=== PATIENT | male | born 1935 | race Caucasian/White ===

== ENCOUNTER 2018-03-20 18:48 | Emergency (ER) | payer OTHER ==
[2018-03-20] MEDS ORDERED: TETRACAINE HCL 0.5% 2ML OPTH ONE (19:37)
[2018-03-20] MEDS ORDERED: FLUORESCEIN SODIUM 0.6 MG/WRAP ONE (19:37)
--- NOTE | 2018-03-20 20:02 | ER ---
Nurse's Notes [facility] Name: Nikolai Gray Age: 82 yrs Sex: Male : 1935 Arrival Date: 03/20/2018 Time: 18:50 Bed 7 Private MD: Lázaro Minaya Diagnosis: Injury of conjunctiva and corneal abrasion without foreign body, right eye Presentation: 03/20 19:34 Presenting complaint: Patient states: "I think I have sawdust in my right eye.". tl2 Transition of care: patient was not received from another setting of care. Onset of symptoms was March 20, 2018. Risk Assessment: Do you want to hurt yourself or someone else? Patient reports no desire to harm self or others. Initial Sepsis Screen: Does the patient meet any 2 criteria? No. Patient's initial sepsis screen is negative. Does the patient have a suspected source of infection? No. Patient's initial sepsis screen is negative. Care prior to arrival: None. 19:34 Method Of Arrival: Ambulatory tl2 19:34 Acuity: ISAC 4 tl2 Triage Assessment: 19:36 General: Appears in no apparent distress. uncomfortable, Behavior is calm, cooperative, tl2 appropriate for age. Pain: Complains of pain in right eye. EENT: Eyes are tearing on outer aspect of conjuctiva of right eye, iris of right eye and inner aspect of conjuctiva of right eye Sclera/Cornea are reddened in outer aspect of conjuctiva of right eye, iris of right eye and inner aspect of conjuctiva of right eye. Neuro: Level of Consciousness is awake, alert, obeys commands, Oriented to person, place, time, situation. Respiratory: Airway is patent Respiratory effort is even, unlabored, Respiratory pattern is regular, symmetrical. Derm: Skin is pink, warm \\T\\ dry. Historical: - Allergies: 19:36 No Known Allergies; tl2 - Home Meds: 19:36 unknown meds [Active]; tl2 - PMHx: 19:36 Hypertension; tl2 - Immunization history:: Adult Immunizations up to date. - Social history:: Smoking status: Patient/guardian denies using tobacco. - Ebola Screening: : No symptoms or risks identified at this time. Screenin:38 Abuse screen: Denies threats or abuse. Nutritional screening: No deficits noted. tl2 Tuberculosis screening: No symptoms or risk factors identified. Fall Risk None identified. Assessment: 19:36 General: see triage assessment. tl2 Vital Signs: 19:36 BP 145 / 73; Pulse 71; Resp 20; Temp 98.5(O); Pulse Ox 97% on R/A; Weight 90.72 kg; tl2 Height 6 ft. 1 in. (185.42 cm); Pain 1/10; 20:11 BP 124 / 56; Pulse 64; Resp 18; Pulse Ox 96% on R/A; tl2 19:36 Body Mass Index 26.39 (90.72 kg, 185.42 cm) tl2 Visual Acuity: 20:12 Left Eye Visual acuity 20/40, Pupil size 3 mm, ; Right Eye Visual acuity 20/30, Pupil tl2 size 3 mm, ; Both Eyes Visual acuity 20/20; Without Lenses; ED Course: 18:50 Patient arrived in ED. sb2 18:50 Lázaro Minaya MD is Private Physician. sb2 19:27 Aníbal De La Garza MD is Attending Physician. ps1 19:35 Triage completed. tl2 19:36 Arm band placed on right wrist. tl2 19:38 Patient has correct armband on for positive identification. Bed in low position. Call tl2 light in reach. Side rails up X 1. 20:00 Ander Mckinley MD is Referral Physician. ps1 20:32 Assist provider with eye exam of right eye. using fluorescein stain, Performed by tl1 Aníbal De La Garza MD Patient tolerated well. Patient did not have IV access during this emergency room visit. Administered Medications: 19:36 CANCELLED (Duplicate Order): Tetracaine Drops 0.5 % 2 drops Ophthalmic once; left eye tl1 19:37 Drug: Tetracaine Drops 0.5 % 2 drops Route: Ophthalmic; Site: right eye; tl1 19:50 Drug: Fluorescein Strip 1 strip Route: Ophthalmic; Site: right eye; tl2 20:12 Drug: Tobramycin Ointment (0.3 %) 1 application Route: Ophthalmic; Site: right eye; tl2 Outcome: 20:01 Discharge ordered by . ps1 20:32 Discharged to home ambulatory. tl1 20:32 Condition: good 20:32 Discharge instructions given to patient, Instructed on discharge instructions, follow up and referral plans. medication usage, Demonstrated understanding of instructions, follow-up care, medications. 20:33 Patient left the ED. tl1 Signatures: Coretta Ramirez RN RN tl1 Meli Payne RN RN tl2 Aníbal De La Garza MD MD ps1 [place] sb2
--- NOTE | 2018-03-20 20:02 | EDPHYS ---
Physician Documentation [facility] Name: Nikolai Gray Age: 82 yrs Sex: Male : 1935 Arrival Date: 03/20/2018 Time: 18:50 Bed 7 Private MD: Lázaro Minaya ED Physician Aníbal De La Garza HPI: 03/20 19:54 This 82 yrs old Male presents to ER via Ambulatory with complaints of Eye ps1 Problem. 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 He felt sawdust ps1 go into his eye and flushed it. He has persistent FBS in right eye with associated conjunctival injection. Onset was today. Pain mild and described as discomfort. No remitting factors. . Historical: - Allergies: 19:36 No Known Allergies; tl2 - Home Meds: 19:36 unknown meds [Active]; tl2 - PMHx: 19:36 Hypertension; tl2 - Immunization history:: Adult Immunizations up to date. - Social history:: Smoking status: Patient/guardian denies using tobacco. - Ebola Screening: : No symptoms or risks identified at this time. ROS: 19:54 Constitutional: Negative for fever, chills, and weight loss, ENT: Negative for injury, ps1 pain, and discharge, Neck: Negative for injury, pain, and swelling, Cardiovascular: Negative for chest pain, palpitations, and edema, Respiratory: Negative for shortness of breath, cough, wheezing, and pleuritic chest pain, Abdomen/GI: Negative for abdominal pain, nausea, vomiting, diarrhea, and constipation. 19:54 Eyes: Positive for foreign body sensation. Exam: 19:54 Constitutional: This is a well developed, well nourished patient who is awake, alert, ps1 and in no acute distress. Head/Face: Normocephalic, atraumatic. Chest/axilla: Normal chest wall appearance and motion. Nontender with no deformity. No lesions are appreciated. Cardiovascular: Regular rate and rhythm. No gallops, murmurs, or rubs. Normal PMI, no JVD. No pulse deficits. Respiratory: Lungs have equal breath sounds bilaterally, clear to auscultation and percussion. No rales, rhonchi or wheezes noted. No increased work of breathing, no retractions or nasal flaring. Abdomen/GI: Soft, non-tender, with normal bowel sounds. No distension or tympany. No guarding or rebound. No evidence of tenderness throughout. Skin: Warm, dry with normal turgor. Normal color with no rashes, no lesions, and no evidence of cellulitis. MS/ Extremity: Pulses equal, no cyanosis. Neurovascular intact. Full, normal range of motion. 19:54 Eyes: Periorbital structures: appear normal, Pupils: equal, round, and reactive to light and accomodation, Conjunctiva: injected, in the right eye, Corneas: abrasion, that is small, on the right, at 7 o'clock, foreign body, is not appreciated. Vital Signs: 19:36 BP 145 / 73; Pulse 71; Resp 20; Temp 98.5(O); Pulse Ox 97% on R/A; Weight 90.72 kg; tl2 Height 6 ft. 1 in. (185.42 cm); Pain 1/10; 20:11 BP 124 / 56; Pulse 64; Resp 18; Pulse Ox 96% on R/A; tl2 19:36 Body Mass Index 26.39 (90.72 kg, 185.42 cm) tl2 Visual Acuity: 20:12 Left Eye Visual acuity 20/40, Pupil size 3 mm, ; Right Eye Visual acuity 20/30, Pupil tl2 size 3 mm, ; Both Eyes Visual acuity 20/20; Without Lenses; MDM: 19:54 Data reviewed: vital signs, nurses notes, and as a result, I will discharge patient. ps1 Counseling: I had a detailed discussion with the patient and/or guardian regarding: the historical points, exam findings, and any diagnostic results supporting the discharge/admit diagnosis, the need for outpatient follow up, an opthalmologist. 20:01 Patient medically screened. ps1 Administered Medications: 19:36 CANCELLED (Duplicate Order): Tetracaine Drops 0.5 % 2 drops Ophthalmic once; left eye tl1 19:37 Drug: Tetracaine Drops 0.5 % 2 drops Route: Ophthalmic; Site: right eye; tl1 19:50 Drug: Fluorescein Strip 1 strip Route: Ophthalmic; Site: right eye; tl2 20:12 Drug: Tobramycin Ointment (0.3 %) 1 application Route: Ophthalmic; Site: right eye; tl2 Disposition: 03/20/18 20:01 Discharged to Home. Impression: Injury of conjunctiva and corneal abrasion without foreign body, right eye. - Condition is Stable. - Discharge Instructions: Corneal Abrasion, [id number]. - Prescriptions for Erythromycin 5 mg/gram (0.5 %) Ophthalmic Ointment - apply 1 ribbon by OPHTHALMIC route every 8 hours; 1 tube. - Medication Reconciliation Form, Thank You Letter, Antibiotic Education, Prescription Opioid Use form. - Follow up: Ander Mckinley MD; When: 1 week; Reason: Recheck today's complaints, Continuance of care, Re-evaluation by your physician. Follow up: Emergency Department; When: As needed; Reason: Worsening of condition. - Problem is new. - Symptoms have improved. Signatures: Monika Benitez RN RN fc Coretta Ramirez RN RN tl1 Meli Payne RN RN tl2 Aníbal De La Garza MD MD ps1 Corrections: (The following items were deleted from the chart) 19:36 19:35 Tetracaine Drops 0.5 % 2 drops Ophthalmic once; left eye ordered. tl1 tl1 20:33 20:01 03/20/2018 20:01 Discharged to Home. Impression: Injury of conjunctiva and tl1 corneal abrasion without foreign body, right eye. Condition is Stable. Forms are Medication Reconciliation Form, Thank You Letter, Antibiotic Education, Prescription Opioid Use. Follow up: Ander Mckinley; When: 1 week; Reason: Recheck today's complaints, Continuance of care, Re-evaluation by your physician. Follow up: Emergency Department; When: As needed; Reason: Worsening of condition. Problem is new. Symptoms have improved. ps1
[2018-03-20] MEDS ORDERED: GENTAMICIN 0.3% OPTH DROP 5ML ONE (20:14)
[2018-03-20] MEDS ORDERED: TOBRAMYCIN SULF 0.3% OPTH OINT ONE (20:16)
[2018-03-20 20:41] VITALS: TEMP 98.5
[2018-03-20 20:42] VITALS: BP 124/56; O2SAT 96
== END 2018-03-20 20:33 | disposition home or self-care (01) ==
LOC: ER 18:48
DX: S05.01XA Injury of conjunctiva and corneal abrasion without foreign body, right eye, initial encounter (principal)
CPT/HCPCS: 99283

== ENCOUNTER 2018-04-26 11:43 | Emergency (ER) | payer OTHER ==
[2018-04-26 13:11] LABS: Protime INR 1.08
[2018-04-26 13:16] LABS: Absolute Lymphocytes (CBC) 1.9 K/uL (0.7-4.9); Absolute Monocytes 0.4 K/uL (0.1-1.3); Absolute Neutrophil 2.9 K/uL (1.8-8.0); Basophils % 1.3 % (0-1.3); Eosinophils % 4.5 % (0-4.4); Hematocrit 39.2 % (39.6-49.0); MCH 29.4 pg (27.0-35.0); MCV 86.4 fL (80-100); MPV 8.6 fL (7.6-11.3); Monocytes % 6.5 % (3.3-12.3); RBC Red Blood Cell Count 4.54 M/uL (4.33-5.43)
[2018-04-26 13:23] LABS: ALT/SGPT 23 U/L (12-78); AST/SGOT 19 U/L (15-37); Albumin 3.9 g/dL (3.4-5.0); Alkaline Phosphatase 83 U/L (45-117); BUN Blood Urea Nitrogen 23 mg/dL (7-18); Bicarbonate 28 mmol/L (21-32); Bilirubin Direct < 0.1 mg/dL (0-0.2); Bilirubin Total 0.4 mg/dL (0.2-1.0); Glucose Level 90 mg/dL (74-106); Magnesium 2.5 mg/dL (1.8-2.4); NT PRO-BNP 517 pg/mL (<450); Potassium 4.4 mmol/L (3.5-5.1); Protein, Total 7.3 g/dL (6.4-8.2); Sodium Level 141 mmol/L (136-145); Troponin I < 0.02 ng/mL (0.0-0.045)
--- NOTE | 2018-04-26 13:52 | RAD REPORT ---
EXAM DESCRIPTION: US - Extremity Venous Uni Ltd - 04/26/2018 1:46 pm CLINICAL HISTORY: PAIN Leg swelling and edema. COMPARISON: EXT VENOUS UNI LTD dated 01/17/2012 FINDINGS: Right lower extremity venous system was interrogated with Doppler technique. Normal flow, compressibility and augmentation was noted. There is no DVT present. IMPRESSION: No evidence of right lower extremity deep venous thrombosis.
--- NOTE | 2018-04-26 14:23 | RAD REPORT ---
EXAM DESCRIPTION: RAD - Chest Single View - 04/26/2018 2:07 pm CLINICAL HISTORY: CHEST PAIN Chest pain. COMPARISON: CHEST PA AND LAT 2 VIEW dated 07/26/2014; ABDOMEN 1 VIEW KUB dated 11/18/2012; CHEST PA AND LAT 2 VIEW dated 08/28/2008 FINDINGS: Portable technique limits examination quality. The lungs are grossly clear. The heart is normal in size. No displaced fractures. IMPRESSION: No acute intrathoracic process suspected.
--- NOTE | 2018-04-26 14:43 | EDPHYS ---
Physician Documentation [facility] Name: Nikolai Gray Age: 82 yrs Sex: Male : 1935 Arrival Date: 04/26/2018 Time: 11:44 Bed 13 Private MD: Lázaro Minaya ED Physician Bhavani Plaza HPI: 04/26 12:24 This 82 yrs old Male presents to ER via Ambulatory with complaints of Leg ma2 Pain. 12:24 The patient presents with pain, swelling. The complaints affect the lateral aspect of ma2 right calf and right ankle. Context: s/p road trip. Onset: The symptoms/episode began/occurred gradually, 4 day(s) ago. Associated signs and symptoms: Pertinent negatives fever, nausea, tingling, warmth. Severity of symptoms: At their worst the symptoms were moderate, in the emergency department the symptoms are unchanged. Historical: - Allergies: 11:53 No Known Allergies; sv - PMHx: 11:53 Hypertension; sv - PSHx: 11:53 Tonsillectomy; left leg; sv - Immunization history:: Adult Immunizations up to date, Flu vaccine is not up to date. - Social history:: Smoking status: Patient/guardian denies using tobacco. - Ebola Screening: : No symptoms or risks identified at this time. - Family history:: not pertinent. ROS: 12:24 Constitutional: Negative for fever, chills, and weight loss, Cardiovascular: Negative ma2 for chest pain, palpitations, and edema, Respiratory: Negative for shortness of breath, cough, wheezing, and pleuritic chest pain, Abdomen/GI: Negative for abdominal pain, nausea, diarrhea, and constipation. 12:24 MS/extremity: Positive for swelling, Negative for injury or acute deformity, bite, erythema, tingling. 12:24 All other systems are negative. ma2 Exam: 12:24 Constitutional: This is a well developed, well nourished patient who is awake, alert, ma2 and in no acute distress. Head/Face: Normocephalic, atraumatic. Chest/axilla: Normal chest wall appearance and motion. Nontender with no deformity. No lesions are appreciated. Cardiovascular: Regular rate and rhythm with a normal S1 and S2. No gallops, murmurs, or rubs. Normal PMI, no JVD. No pulse deficits. Respiratory: Lungs have equal breath sounds bilaterally, clear to auscultation and percussion. No rales, rhonchi or wheezes noted. No increased work of breathing, no retractions or nasal flaring. Abdomen/GI: Soft, non-tender, with normal bowel sounds. No distension or tympany. No guarding or rebound. No evidence of tenderness throughout. 12:24 Musculoskeletal/extremity: ROM: no acute changes, Circulation is intact in all extremities. Sensation intact. Compartment Syndrome exam of affected extremity: DVT Exam: no tenderness, negative Homans' sign noted on exam, no appreciated bluish discoloration, no erythema, no increased warmth, pain, swelling. Vital Signs: 11:53 BP 173 / 88; Pulse 56; Resp 20; Temp 98; Pulse Ox 99% ; Weight 90.72 kg; Height 6 ft. 1 sv in. (185.42 cm); Pain 0/10; 13:00 BP 145 / 65; Pulse 52; Resp 20; Pulse Ox 97% on R/A; ph 14:00 BP 142 / 68; Pulse 51; Resp 18; Temp 97.8; Pulse Ox 99% on R/A; ph 11:53 Body Mass Index 26.39 (90.72 kg, 185.42 cm) sv MDM: 12:01 Patient medically screened. ma2 12:24 Differential diagnosis: contusion, abrasion, tendonitis, dvt. ma2 14:41 Data reviewed: vital signs, nurses notes, diagnostic data from outside facility, lab ma2 test result(s), radiologic studies. Counseling: I had a detailed discussion with the patient and/or guardian regarding: the historical points, exam findings, and any diagnostic results supporting the discharge/admit diagnosis, the presence of at least one elevated blood pressure reading (>120/80) during this emergency department visit, the need for outpatient follow up. ED course: no DVT, Cr 1.6 same as last year per ptn,. 04/26 12:40 Order name: Basic Metabolic Panel; Complete Time: 13:38 EDMS 04/26 12:40 Order name: Liver (Hepatic) Function; Complete Time: 13:38 EDMS 04/26 12:40 Order name: Troponin I; Complete Time: 13:38 EDMS 04/26 12:40 Order name: NT PRO-BNP; Complete Time: 13:38 EDMS 04/26 12:40 Order name: Magnesium; Complete Time: 13:38 EDMS 04/26 12:40 Order name: CBC with Automated Diff; Complete Time: 13:38 EDMS 04/26 12:40 Order name: Protime (+INR); Complete Time: 13:38 EDMS 04/26 12:13 Order name: XRAY Chest (1 view); Complete Time: 14:23 ma2 04/26 12:13 Order name: EKG; Complete Time: 13:19 ma2 04/26 12:13 Order name: Cardiac monitoring; Complete Time: 12:32 ma2 04/26 12:13 Order name: EKG - Nurse/Tech; Complete Time: 13:24 ma2 04/26 12:13 Order name: IV Saline Lock; Complete Time: 12:32 ma2 04/26 12:13 Order name: Labs collected and sent; Complete Time: 12:32 ma2 04/26 12:13 Order name: O2 Per Protocol; Complete Time: 12:32 ma2 04/26 12:13 Order name: O2 Sat Monitoring; Complete Time: 12:33 ma2 04/26 12:13 Order name: Extremity Venous Uni Ltd US; Complete Time: 14:23 ma2 Administered Medications: No medications were administered Disposition: 04/26/18 14:43 Discharged to Home. Impression: Edema, unspecified. - Condition is Stable. - Discharge Instructions: Peripheral Edema. - Medication Reconciliation Form, Thank You Letter, Antibiotic Education, Prescription Opioid Use form. - Follow up: Private Physician; When: Tomorrow; Reason: Continuance of care. - Notes: follow up with your primary care doctor in 5 days for possible repeat ultrasound Signatures: Dispatcher [employer] EDMS Carri Oneal RN RN sv Herrera, Deanna 3 Bhavani Plaza MD MD ma2 Corrections: (The following items were deleted from the chart) 14:34 13:19 BASIC METABOLIC PANEL+C.LAB.BRZ ordered. EDMS EDMS 14:34 13:19 HEPATIC FUNCTION+C.LAB.BRZ ordered. EDMS EDMS 14:34 13:19 MAGNESIUM+C.LAB.BRZ ordered. EDMS EDMS 14:34 13:19 PROBNP+C.LAB.BRZ ordered. EDMS EDMS 14:34 13:19 TROPONIN (EMERG DEPT USE ONLY)+C.LAB.BRZ ordered. EDMD EDMS 14:49 14:43 04/26/2018 14:43 Discharged to Home. Impression: Edema, unspecified. Condition is dh3 Stable. Forms are Medication Reconciliation Form, Thank You Letter, Antibiotic Education, Prescription Opioid Use. Follow up: Private Physician; When: Tomorrow; Reason: Continuance of care. ma2
--- NOTE | 2018-04-26 14:43 | ER ---
Nurse's Notes [facility] Name: Nikolai Gray Age: 82 yrs Sex: Male : 1935 Arrival Date: 04/26/2018 Time: 11:44 Bed 13 Private MD: Lázaro Minaya Diagnosis: Edema, unspecified Presentation: 04/26 11:51 Presenting complaint: Patient states: RLE pain started 2 days ago. Transition of care: sv patient was not received from another setting of care. Onset of symptoms was April 24, 2018. Care prior to arrival: None. 11:51 Method Of Arrival: Ambulatory sv 11:51 Acuity: ISAC 3 sv 13:21 Risk Assessment: Do you want to hurt yourself or someone else? Patient reports no ph desire to harm self or others. Initial Sepsis Screen: Does the patient meet any 2 criteria? No. Patient's initial sepsis screen is negative. Does the patient have a suspected source of infection? No. Patient's initial sepsis screen is negative. Triage Assessment: 11:51 General: Appears in no apparent distress. uncomfortable, Behavior is calm, cooperative, sv appropriate for age. Pain: Denies pain. EENT: No signs and/or symptoms were reported regarding the EENT system. Neuro: Level of Consciousness is awake, alert, obeys commands, Oriented to person, place, time, situation, Moves all extremities. Full function Gait is steady. Respiratory: Respiratory effort is even, unlabored, Respiratory pattern is regular, symmetrical. Derm: Skin is normal. Musculoskeletal: Reports pain in right leg. Historical: - Allergies: 11:53 No Known Allergies; sv - PMHx: 11:53 Hypertension; sv - PSHx: 11:53 Tonsillectomy; left leg; sv - Immunization history:: Adult Immunizations up to date, Flu vaccine is not up to date. - Social history:: Smoking status: Patient/guardian denies using tobacco. - Ebola Screening: : No symptoms or risks identified at this time. - Family history:: not pertinent. Screenin:20 Abuse screen: Denies threats or abuse. Denies injuries from another. Nutritional ph screening: No deficits noted. Tuberculosis screening: No symptoms or risk factors identified. Fall Risk None identified. Assessment: 12:00 General: Appears in no apparent distress. comfortable, Behavior is calm, cooperative, ph appropriate for age, Denies fever, feeling ill. Pain: Complains of pain in right ankle and lateral aspect of right calf. Neuro: Level of Consciousness is awake, alert, obeys commands, Oriented to person, place, time, situation. Cardiovascular: Capillary refill < 3 seconds Patient's skin is warm and dry. Pulses are palpable in right dorsalis pedis artery and left dorsalis pedis artery. Respiratory: Airway is patent Respiratory effort is even, unlabored, Denies shortness of breath. Derm: Skin is healthy with good turgor, Skin is pink, warm \T\ dry. Musculoskeletal: Circulation, motion, and sensation intact. Range of motion: intact in all extremities. 13:30 Reassessment: Patient appears in no apparent distress at this time. Patient and/or ph family updated on plan of care and expected duration. Pain level reassessed. Patient is alert, oriented x 3, equal unlabored respirations, skin warm/dry/pink. Vital Signs: 11:53 BP 173 / 88; Pulse 56; Resp 20; Temp 98; Pulse Ox 99% ; Weight 90.72 kg; Height 6 ft. 1 sv in. (185.42 cm); Pain 0/10; 13:00 BP 145 / 65; Pulse 52; Resp 20; Pulse Ox 97% on R/A; ph 14:00 BP 142 / 68; Pulse 51; Resp 18; Temp 97.8; Pulse Ox 99% on R/A; ph 11:53 Body Mass Index 26.39 (90.72 kg, 185.42 cm) sv ED Course: 11:44 Patient arrived in ED. as 11:44 Lázaro Minaya MD is Private Physician. as 11:52 Triage completed. sv 11:54 Arm band placed on Patient placed in an exam room, on a stretcher. sv 12:01 Bhavani Plaza MD is Attending Physician. ma2 12:01 Smitha Newberry RN is Primary Nurse. ph 12:25 Initial lab(s) drawn, by me, sent to lab. Inserted saline lock: 20 gauge in right dh3 antecubital area, using aseptic technique. Blood collected. 13:21 Patient has correct armband on for positive identification. Bed in low position. Call ph light in reach. Side rails up X 1. Pulse ox on. NIBP on. Warm blanket given. 13:46 Extremity Venous Uni Ltd US In Process Unspecified. EDMS 14:07 XRAY Chest (1 view) In Process Unspecified. EDMS 14:27 EKG done, by technology analyst. reviewed by Bhavani Plaza MD. at1 14:45 No provider procedures requiring assistance completed. IV discontinued, intact, ph bleeding controlled, No redness/swelling at site. Pressure dressing applied. Administered Medications: No medications were administered Outcome: 14:43 Discharge ordered by . ernst 14:49 Patient left the ED. [facility] 14:49 Discharged to home ambulatory, with significant other. ph 14:49 Condition: good 14:49 Discharge instructions given to patient, Instructed on discharge instructions, follow up and referral plans. Demonstrated understanding of instructions, follow-up care. Signatures: Dispatcher [employer] Carri Sandoval, Sanjana Epps RN, Amanda, offal separator EKG Tat1 Smitha Newberry RN RN [place], Yvonne [facility] Bhavani Plaza MD MD [facility]
--- NOTE | 2018-04-27 12:36 | EKG ---
Test Date: 2018-04-26 Test Time: 14:22:19 Computer Technology Trainer: LOR MEASUREMENT RESULTS: Intervals: Rate: 51 KS: 186 QRSD: 132 QT: 486 QTc: 447 [place]: P: 18 KS: 186 QRS: -8 T: 60 INTERPRETIVE STATEMENTS: Sinus bradycardia Right bundle branch block Moderate voltage criteria for LVH, may be normal variant Abnormal ECG Compared to ECG 07/24/2014 17:42:43 Sinus rhythm no longer present Electronically Signed On 04-27-18 12:33:20 CDT by Negro Alejandro
[2018-04-27 14:45] VITALS: BP 145/65; TEMP 98; O2SAT 97
== END 2018-04-26 14:49 | disposition home or self-care (01) ==
LOC: ER 11:43
DX: R60.0 Localized edema (principal); I10 Essential (primary) hypertension
CPT/HCPCS: 36415; 71045; 80048; 80076; 83735; 83880; 84484; 85025; 85610; 93005; 93971; 99284

== ENCOUNTER 2019-02-18 19:39 | Emergency (ER) | payer OTHER ==
[2019-02-18] MEDS ORDERED: ONDANSETRON 4 MG/2 ML VIAL ONE (20:30)
[2019-02-18] MEDS ORDERED: DIPHENOX/ATROP SULF 1 TAB PO ONE (20:33)
[2019-02-18] MEDS ORDERED: NA CHLORIDE 0.9% 1,000 ML ONE ×2 (20:46→22:45)
[2019-02-18 21:06] LABS: Absolute Lymphocytes (CBC) 1.3 K/uL (0.7-4.9); Basophils % 0.5 % (0-1.3); MPV 8.3 fL (7.6-11.3); RBC Red Blood Cell Count 4.76 M/uL (4.33-5.43)
[2019-02-18 21:16] LABS: Hematocrit 41.3 % (39.6-49.0); Lymphocytes % 19.2 % (15.3-44.8)
[2019-02-18 21:18] LABS: Albumin 3.8 g/dL (3.4-5.0); Bilirubin Direct 0.1 mg/dL (0-0.2); Bilirubin Total 0.4 mg/dL (0.2-1.0); Potassium 4.7 mmol/L (3.5-5.1); Protein, Total 7.9 g/dL (6.4-8.2)
[2019-02-19 00:04] LABS: Potassium 4.6 mmol/L (3.5-5.1)
--- NOTE | 2019-02-19 00:52 | ER ---
Nurse's Notes [facility] Name: Nikolai Gray Age: 83 yrs Sex: Male : 1935 Arrival Date: 02/18/2019 Time: 19:42 Bed 14 Private MD: Diagnosis: Gastroenteritis. Dehydration Presentation: 02/18 19:49 Presenting complaint: states: N/V/D since yesterday, also reports a fever aj1 yesterday of 101 and a poor appetite. Transition of care: patient was not received from another setting of care. Onset of symptoms was February 17, 2019. Risk Assessment: Do you want to hurt yourself or someone else? Patient reports no desire to harm self or others. Initial Sepsis Screen: Does the patient meet any 2 criteria? No. Patient's initial sepsis screen is negative. Does the patient have a suspected source of infection? No. Patient's initial sepsis screen is negative. Care prior to arrival: None. 19:49 Method Of Arrival: Ambulatory aj1 19:49 Acuity: ISAC 3 aj1 Triage Assessment: 19:51 General: Appears in no apparent distress. comfortable, Behavior is calm, cooperative, aj1 appropriate for age. Pain: Complains of pain in abdomen Pain currently is 3 out of 10 on a pain scale. Quality of pain is described as crampy. Neuro: Level of Consciousness is awake, alert, obeys commands, Oriented to person, place, time, situation. Cardiovascular: Patient's skin is warm and dry. Respiratory: Airway is patent Respiratory effort is even, unlabored, Respiratory pattern is regular, symmetrical. GI: Reports diarrhea, nausea, vomiting. Historical: - Allergies: 19:51 No Known Allergies; aj1 - Home Meds: 19:51 amlodipine 5 mg tab 1 tab once daily [Active]; losartan 50 mg oral tab 1 tab once daily aj1 [Active]; - PMHx: 19:51 Hypertension; aj1 - Immunization history:: Flu vaccine is not up to date. - Social history:: Smoking status: Patient/guardian denies using tobacco. - Ebola Screening: : Patient denies travel to an Ebola-affected area in the 21 days before illness onset. Screenin:30 Abuse screen: Denies threats or abuse. Nutritional screening: No deficits noted. tr5 Tuberculosis screening: No symptoms or risk factors identified. Fall Risk None identified. Assessment: 21:00 General: Appears uncomfortable, Behavior is calm, cooperative. Pain: Denies pain. 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 Cardiovascular: Reports nausea, Heart tones present Capillary refill < 3 seconds Pulses are all present. Edema is absent. Respiratory: Airway is patent Trachea midline Respiratory effort is even, unlabored, Respiratory pattern is regular, symmetrical, Breath sounds are clear bilaterally. GI: Reports diarrhea, nausea. GI: Abdomen is round. : No signs and/or symptoms were reported regarding the genitourinary system. EENT: No signs and/or symptoms were reported regarding the EENT system. Derm: No signs and/or symptoms reported regarding the dermatologic system. Skin is intact, Skin is dry, Skin is normal. Musculoskeletal: Capillary refill < 3 seconds, Range of motion: intact in all extremities. 22:00 Reassessment: Patient and/or family updated on plan of care and expected duration. Pain tr5 level reassessed. Patient is alert, oriented x 3, equal unlabored respirations, skin warm/dry/pink. Patient states symptoms have improved. 23:00 Reassessment: Patient and/or family updated on plan of care and expected duration. Pain tr5 level reassessed. Patient is alert, oriented x 3, equal unlabored respirations, skin warm/dry/pink. Patient states symptoms have improved. 02/19 00:00 Reassessment: Patient and/or family updated on plan of care and expected duration. Pain tr5 level reassessed. Patient is alert, oriented x 3, equal unlabored respirations, skin warm/dry/pink. Patient states feeling better. Patient states symptoms have improved. Vital Signs: 02/18 19:51 BP 123 / 57; Pulse 82; Resp 18; Temp 98.0; Pulse Ox 97% on R/A; Weight 86.64 kg (R); aj1 Height 6 ft. 0 in. (182.88 cm) (R); Pain 3/10; 22:42 BP 128 / 60; Pulse 80; Resp 16; Pulse Ox 99% on R/A; tr5 19:51 Body Mass Index 25.90 (86.64 kg, 182.88 cm) aj ED Course: 19:42 Patient arrived in ED. ds1 19:45 Placed in gown. Bed in low position. Call light in reach. Door closed. Noise minimized. tr5 19:50 Triage completed. aj1 19:51 Arm band placed on Patient placed in an exam room. aj1 19:57 Pranav Carter MD is Attending Physician. pkl 20:00 Assisted to bathroom. tr5 20:00 Assisted to bathroom. tr5 20:12 Bill Victor RN is Primary Nurse. tr5 20:15 Inserted saline lock: 20 gauge in right antecubital area, using aseptic technique. tr5 20:40 Initial lab(s) drawn, by me, sent to lab. tr5 02/19 01:00 No provider procedures requiring assistance completed. Patient did not have IV access tr5 during this emergency room visit. Administered Medications: 02/18 20:55 Drug: Zofran 4 mg Route: IVP; Site: right antecubital; tr5 21:36 Follow up: Response: Nausea is decreased tr5 20:56 Drug: NS 0.9% 1000 ml Route: IV; Rate: 1000 ml; Site: right antecubital; tr5 21:35 Follow up: Response: No adverse reaction; IV Status: Completed infusion; IV Intake: tr5 1000ml 20:56 Not Given (Physician Discretion): LoMOTIL 2 tabs PO once tr5 20:56 Drug: LoMOTIL 1 tabs Route: PO; tr5 21:35 Follow up: Response: No adverse reaction tr5 22:46 Drug: NS 0.9% 1000 ml Route: IV; Rate: 1 bolus; Site: right antecubital; tr5 23:29 Follow up: Response: No adverse reaction; IV Status: Completed infusion; IV Intake: tr5 1000ml Intake: 21:35 IV: 1000ml; Total: 1000ml. tr5 23:29 IV: 1000ml; Total: 2000ml. tr5 Outcome: 02/19 00:50 Discharge ordered by . pkl 01:00 Discharged to home ambulatory. tr5 01:00 Condition: stable 01:00 Discharge instructions given to patient, Instructed on discharge instructions, follow up and referral plans. medication usage, Demonstrated understanding of instructions, follow-up care, medications, Prescriptions given X 2. 01:01 Patient left the ED. tr5 Signatures: Huong Mujica RN RN aj1 Pranav Carter MD MD pkl Sanford, Demi ds1 Bill Victor, DARIAN RN tr5
--- NOTE | 2019-02-19 00:53 | EDPHYS ---
Physician Documentation [facility] Name: Nikolai Gray Age: 83 yrs Sex: Male : 1935 Arrival Date: 02/18/2019 Time: 19:42 Bed 14 Private MD: ED Physician Pranav Carter HPI: 02/18 20:10 This 83 yrs old Male presents to ER via Ambulatory with complaints of pkl Nausea/Vomiting/Diarrhea. 20:10 The patient presents to the emergency department with nausea, that is mild, vomiting, pkl diarrhea. Onset: The symptoms/episode began/occurred yesterday. Patient said daughter had similar symptoms yesterday and was treated at [facility]. Historical: - Allergies: 19:51 No Known Allergies; aj1 - Home Meds: 19:51 amlodipine 5 mg tab 1 tab once daily [Active]; losartan 50 mg oral tab 1 tab once daily aj1 [Active]; - PMHx: 19:51 Hypertension; aj1 - Immunization history:: Flu vaccine is not up to date. - Social history:: Smoking status: Patient/guardian denies using tobacco. - Ebola Screening: : Patient denies travel to an Ebola-affected area in the 21 days before illness onset. ROS: 20:10 Eyes: Negative for injury, pain, redness, and discharge, ENT: Negative for injury, pkl pain, and discharge, Neck: Negative for injury, pain, and swelling, Cardiovascular: Negative for chest pain, palpitations, and edema, Respiratory: Negative for shortness of breath, cough, wheezing, and pleuritic chest pain. 20:10 Abdomen/GI: Positive for nausea, vomiting, and diarrhea. 20:10 Back: Negative for acute changes. 20:10 : Negative for urinary symptoms. 20:10 MS/extremity: Negative for acute changes. 20:10 Skin: Negative for rash. 20:10 Neuro: Negative for altered mental status. Exam: 20:10 Head/Face: Normocephalic, atraumatic. Eyes: Pupils equal round and reactive to light, pkl extra-ocular motions intact. Lids and lashes normal. Conjunctiva and sclera are non-icteric and not injected. Cornea within normal limits. Periorbital areas with no swelling, redness, or edema. 20:10 ENT: Mouth: Tongue: dry. 20:10 Neck: Exam negative for nuchal rigidity. 20:10 Chest/axilla: Exam negative for acute changes. 20:10 Cardiovascular: Rate: normal, Rhythm: regular. 20:10 Respiratory: the patient does not display signs of respiratory distress, Respirations: normal, Breath sounds: are clear throughout. 20:10 Abdomen/GI: Bowel sounds: active, Palpation: abdomen is soft and non-tender, in all quadrants. 20:10 Back: Exam negative for acute changes. 20:10 : Exam negative for acute changes. 20:10 Musculoskeletal/extremity: Exam is negative for acute changes. 20:10 Skin: Exam negative for rash. 20:10 Neuro: Orientation: is normal, Mentation: is normal, Cranial nerves: grossly normal, Motor: is normal. Vital Signs: 19:51 BP 123 / 57; Pulse 82; Resp 18; Temp 98.0; Pulse Ox 97% on R/A; Weight 86.64 kg (R); aj1 Height 6 ft. 0 in. (182.88 cm) (R); Pain 3/10; 22:42 BP 128 / 60; Pulse 80; Resp 16; Pulse Ox 99% on R/A; tr5 19:51 Body Mass Index 25.90 (86.64 kg, 182.88 cm) aj1 MDM: 19:58 Patient medically screened. pkl 02/19 00:49 Data reviewed: vital signs, nurses notes, lab test result(s). ED course: Patient pkl feeling better. No vomiting or diarrhea noted in ER.. 02/18 20:09 Order name: Basic Metabolic Panel; Complete Time: 21:56 pkl 02/18 20:09 Order name: CBC with Diff; Complete Time: 21:56 pkl 02/18 20:09 Order name: Creatinine for Radiology; Complete Time: 21:56 pkl 02/18 20:09 Order name: Hepatic Function; Complete Time: 21:56 pkl 02/18 20:09 Order name: Lipase; Complete Time: 21:56 pkl 02/18 20:09 Order name: IV Saline Lock; Complete Time: 20:40 pkl 02/18 20:09 Order name: Labs collected and sent; Complete Time: 20:40 pkl 02/18 22:22 Order name: Chem 7; Complete Time: 00:42 tr5 Administered Medications: 02/18 20:55 Drug: Zofran 4 mg Route: IVP; Site: right antecubital; tr5 21:36 Follow up: Response: Nausea is decreased tr5 20:56 Drug: NS 0.9% 1000 ml Route: IV; Rate: 1000 ml; Site: right antecubital; tr5 21:35 Follow up: Response: No adverse reaction; IV Status: Completed infusion; IV Intake: tr5 1000ml 20:56 Not Given (Physician Discretion): LoMOTIL 2 tabs PO once tr5 20:56 Drug: LoMOTIL 1 tabs Route: PO; tr5 21:35 Follow up: Response: No adverse reaction tr5 22:46 Drug: NS 0.9% 1000 ml Route: IV; Rate: 1 bolus; Site: right antecubital; tr5 23:29 Follow up: Response: No adverse reaction; IV Status: Completed infusion; IV Intake: tr5 1000ml Disposition: 02/19/19 00:50 Discharged to Home. Impression: Gastroenteritis. Dehydration. - Condition is Stable. - Prescriptions for Zofran 4 mg Oral Tablet - take 1 tablet by ORAL route every 12 hours As needed; 6 tablet. Lomotil 2.5- 0.025 mg Oral Tablet - take 2 tablets by ORAL route once daily As needed; 6 tablet. - Medication Reconciliation Form, Thank You Letter, Antibiotic Education, Prescription Opioid Use form. - Follow up: Private Physician; When: 2 - 3 days; Reason: Re-evaluation by your physician. - Problem is new. - Symptoms have improved. Signatures: Dis[facility] Huong Mujica RN RN aj1 Pranav Carter MD MD pkl Bill Victor RN RN tr5 Corrections: (The following items were deleted from the chart) 02/19 01:01 00:50 02/19/2019 00:50 Discharged to Home. Impression: Gastroenteritis. Dehydration. tr5 Condition is Stable. Forms are Medication Reconciliation Form, Thank You Letter, Antibiotic Education, Prescription Opioid Use. Follow up: Private Physician; When: 2 - 3 days; Reason: Re-evaluation by your physician. Problem is new. Symptoms have improved. pkl
[2019-02-19 01:43] VITALS: TEMP 98
[2019-02-19 01:44] VITALS: BP 128/60; O2SAT 99
== END 2019-02-19 01:01 | disposition home or self-care (01) ==
LOC: ER 19:39
DX: K52.9 Noninfective gastroenteritis and colitis, unspecified (principal); E86.0 Dehydration; I10 Essential (primary) hypertension
CPT/HCPCS: 96361; 85025; 80048 ×2; 36415; 80076; 83690; 96374; 99284; J7030 ×2; J2405

== ENCOUNTER 2019-11-07 06:21 | Emergency (ER) | payer OTHER ==
[2019-11-07 07:57] LABS: Absolute Lymphocytes (CBC) 1.7 K/uL (0.7-4.9); Basophils % 0.6 % (0-1.3); Lymphocytes % 27.8 % (15.3-44.8); MPV 7.9 fL (7.6-11.3); RBC Red Blood Cell Count 4.77 M/uL (4.33-5.43)
[2019-11-07 08:06] LABS: Magnesium 2.3 mg/dL (1.8-2.4); Potassium 4.8 mmol/L (3.5-5.1)
--- NOTE | 2019-11-07 08:37 | EDPHYS ---
Physician Documentation [facility] Name: Nikolai Gray Age: 83 yrs Sex: Male : 1935 Arrival Date: 11/07/2019 Time: 06:26 Bed 4 Private MD: ED Physician Pranav Carter HPI: 11/06 06:57 This 83 yrs old Male presents to ER via Ambulatory with complaints of Leg snw Pain. 06:57 The patient presents with spasm, change in color. The complaints affect the right dixon. snw Context: The problem was sustained at home, resulted from an unknown cause, the patient can fully bear weight, the patient is able to ambulate, Problem is a result from a previous injury: Snake bite prior to [place]. Onset: The symptoms/episode began/occurred suddenly, this morning. Associated signs and symptoms: Pertinent positives: discoloration and jumpy sensation. Severity of symptoms: At their worst the symptoms were mild. The patient has not experienced similar symptoms in the past. It is unknown whether or not the patient has recently seen a physician. Historical: - Allergies: 06:44 No Known Allergies; ea - Home Meds: 07:03 losartan 50 mg Oral tab 1 tab once daily [Active]; aspirin 81 mg Oral chew 1 tab once ea daily [Active]; - PMHx: 06:44 Hypertension; ea - PSHx: 06:44 None; ea - Immunization history:: Adult Immunizations up to date. - Social history:: Smoking status: Patient denies any tobacco usage or history of. ROS: 06:54 Constitutional: Negative for fever, chills, and weight loss, Eyes: Negative for injury, snw pain, redness, and discharge, ENT: Negative for injury, pain, and discharge, Neck: Negative for injury, pain, and swelling, Cardiovascular: Negative for chest pain, palpitations, and edema, Respiratory: Negative for shortness of breath, cough, wheezing, and pleuritic chest pain, Abdomen/GI: Negative for abdominal pain, nausea, vomiting, diarrhea, and constipation, Back: Negative for injury and pain, : Negative for injury, bleeding, discharge, and swelling, MS/Extremity: Negative for injury and deformity, pt states right leg has changed in coloration and feels jumpy Skin: Negative for injury, rash, and discoloration, Neuro: Negative for headache, weakness, numbness, tingling, and seizure, Psych: Negative for depression, anxiety, suicide ideation, homicidal ideation, and hallucinations. Exam: 06:53 Constitutional: This is a well developed, well nourished patient who is awake, alert, snw and in no acute distress. Head/Face: Normocephalic, atraumatic. Eyes: Pupils equal round and reactive to light, extra-ocular motions intact. Lids and lashes normal. Conjunctiva and sclera are non-icteric and not injected. Cornea within normal limits. Periorbital areas with no swelling, redness, or edema. ENT: Nares patent. No nasal discharge, no septal abnormalities noted. Tympanic membranes are normal and external auditory canals are clear. Oropharynx with no redness, swelling, or masses, exudates, or evidence of obstruction, uvula midline. Mucous membranes moist. Neck: Trachea midline, no thyromegaly or masses palpated, and no cervical lymphadenopathy. Supple, full range of motion without nuchal rigidity, or vertebral point tenderness. No Meningismus. Chest/axilla: Normal chest wall appearance and motion. Nontender with no deformity. No lesions are appreciated. Cardiovascular: Regular rate and rhythm with a normal S1 and S2. No gallops, murmurs, or rubs. Normal PMI, no JVD. No pulse deficits. Respiratory: Lungs have equal breath sounds bilaterally, clear to auscultation and percussion. No rales, rhonchi or wheezes noted. No increased work of breathing, no retractions or nasal flaring. Abdomen/GI: Soft, non-tender, with normal bowel sounds. No distension or tympany. No guarding or rebound. No evidence of tenderness throughout. Back: No spinal tenderness. No costovertebral tenderness. Full range of motion. Neuro: Awake and alert, GCS 15, oriented to person, place, time, and situation. Cranial nerves II-XII grossly intact. Motor strength 5/5 in all extremities. Sensory grossly intact. Cerebellar exam normal. Normal gait. Psych: Awake, alert, with orientation to person, place and time. Behavior, mood, and affect are within normal limits. 06:53 Skin: Appearance: normal except for affected area, mildly erythematous right lower ext, no edema, pulses present and equal, non-tender. Vital Signs: 06:41 BP 161 / 66; Pulse 55; Resp 18; Temp 97.6; Pulse Ox 98% ; Weight 94.35 kg; Height 6 ft. ea 1 in. (185.42 cm); 06:41 Body Mass Index 27.44 (94.35 kg, 185.42 cm) ea MDM: 06:41 Patient medically screened. snw 08:41 Data reviewed: vital signs, nurses notes. Data interpreted: Pulse oximetry: on room air snw is 98 %. Interpretation: normal. Counseling: I had a detailed discussion with the patient and/or guardian regarding: the historical points, exam findings, and any diagnostic results supporting the discharge/admit diagnosis, the presence of at least one elevated blood pressure reading (>120/80) during this emergency department visit, radiology results, the need for outpatient follow up, to return to the emergency department if symptoms worsen or persist or if there are any questions or concerns that arise at home. Response to treatment: There is no appreciated change of the patient's symptoms at this time. Special discussion: I have referred the patient to see his PCP for further evaluation of high blood pressure. Based on the history and exam findings, there is no indication for further emergent testing or inpatient evaluation. I discussed with the patient/guardian the need to see the primary care provider for further evaluation of the symptoms. 11/06 06:52 Order name: CBC with Diff; Complete Time: 08:10 snw 11/06 06:52 Order name: Chem 7; Complete Time: 08:10 snw 11/06 06:52 Order name: Magnesium; Complete Time: 08:10 snw 11/06 06:52 Order name: Blood Culture Adult (2) snw 11/06 06:52 Order name: US Extremity Venous Unilateral Ltd; Complete Time: 08:40 snw 11/06 06:52 Order name: SL; Complete Time: 08:02 snw Administered Medications: No medications were administered Disposition: 11/07/19 08:36 Discharged to Home. Impression: Discoloration of lower extremity, peripheral vascular disease. - Condition is Stable. - Discharge Instructions: Peripheral Vascular Disease, Heat Therapy. - Medication Reconciliation Form, Thank You Letter, Antibiotic Education, Prescription Opioid Use form. - Follow up: Emergency Department; When: As needed; Reason: Worsening of condition. Follow up: Private Physician; When: 2 - 3 days; Reason: Recheck today's complaints, Continuance of care, Re-evaluation by your physician. - Notes: Please continue aspirin daily, warm compresses to lower extremities, elevate extremities when possible. Signatures: Dispatcher [employer] Carri Sandoval RN RN sv Therrien, Shelly, CLINICAL APPEALS AUDITOR-C CLINICAL APPEALS AUDITOR-Csnw Bhavna Kaufman RN RN ea Corrections: (The following items were deleted from the chart) 09:34 08:36 11/07/2019 08:36 Discharged to Home. Impression: Discoloration of lower sv extremity, peripheral vascular disease. Condition is Stable. Forms are Medication Reconciliation Form, Thank You Letter, Antibiotic Education, Prescription Opioid Use. Follow up: Emergency Department; When: As needed; Reason: Worsening of condition. Follow up: Private Physician; When: 2 - 3 days; Reason: Recheck today's complaints, Continuance of care, Re-evaluation by your physician. snw
--- NOTE | 2019-11-07 08:37 | ER ---
Nurse's Notes [facility] Name: Nikolai Gray Age: 83 yrs Sex: Male : 1935 Arrival Date: 11/07/2019 Time: 06:26 Bed 4 Private MD: Diagnosis: Discoloration of lower extremity, peripheral vascular disease Presentation: 11/06 06:41 Chief complaint: Patient states: Pt reports he woke up with right lower leg pain, ea swelling and redness. Reports "it feels like someone hit it with a baseball bat". Coronavirus screen: Proceed with normal triage. Ebola Screen: No symptoms or risks identified at this time. Initial Sepsis Screen: Does the patient meet any 2 criteria? No. Patient's initial sepsis screen is negative. Does the patient have a suspected source of infection? No. Patient's initial sepsis screen is negative. Risk Assessment: Do you want to hurt yourself or someone else? Patient reports no desire to harm self or others. Onset of symptoms was November 07, 2019. 06:41 Method Of Arrival: Ambulatory ea 06:41 Acuity: ISAC 3 ea Triage Assessment: 06:47 General: Appears in no apparent distress. Behavior is calm, cooperative, appropriate ea for age. Pain: Complains of pain in left dixon. Derm: discoloration noted to left dixon. Historical: - Allergies: 06:44 No Known Allergies; ea - Home Meds: 07:03 losartan 50 mg Oral tab 1 tab once daily [Active]; aspirin 81 mg Oral chew 1 tab once ea daily [Active]; - PMHx: 06:44 Hypertension; ea - PSHx: 06:44 None; ea - Immunization history:: Adult Immunizations up to date. - Social history:: Smoking status: Patient denies any tobacco usage or history of. Screenin:41 Abuse screen: Denies threats or abuse. Nutritional screening: No deficits noted. ea Tuberculosis screening: No symptoms or risk factors identified. Fall Risk None identified. Assessment: 06:44 Reassessment: Deisi . ea Vital Signs: 06:41 BP 161 / 66; Pulse 55; Resp 18; Temp 97.6; Pulse Ox 98% ; Weight 94.35 kg; Height 6 ft. ea 1 in. (185.42 cm); 06:41 Body Mass Index 27.44 (94.35 kg, 185.42 cm) ea ED Course: 06:26 Patient arrived in ED. ds1 06:40 Christina Alvarez FNP-C is [facility]. snw 06:40 Pranav Carter MD is Attending Physician. snw 06:43 Triage completed. ea 06:43 Patient has correct armband on for positive identification. Placed in gown. Bed in low ea position. Call light in reach. Side rails up X 1. 06:43 Patient placed in an exam room, on a stretcher, on pulse oximetry. ea 07:14 US Extremity Venous Unilateral Ltd In Process Unspecified. EDMS 07:23 David Copeland, RN is Primary Nurse. jl7 07:44 Inserted saline lock: 20 gauge in left wrist, using aseptic technique. Blood collected. jl7 07:44 Initial lab(s) drawn, by me, sent to lab. First set of blood cultures drawn by me. jl7 08:00 pt cell phone number is [phone]. bd 09:00 No provider procedures requiring assistance completed. IV discontinued, intact, sv bleeding controlled, No redness/swelling at site. Pressure dressing applied. Administered Medications: No medications were administered Outcome: 08:36 Discharge ordered by . snw 09:00 Discharged to home ambulatory, Discharge instructions given by Christina GRAFF sv 09:00 Condition: stable 09:00 Discharge instructions given to patient, Instructed on discharge instructions, follow up and referral plans. Demonstrated understanding of instructions, follow-up care. 09:00 Patient left the ED. sv Signatures: Dispatcher [employer] EDOH Jade Frye Stephanie RN RN sv Christina Alvarez FNP-C FNP-CsnAndreea Ramachandran ds1 David Copeland, RN RN Bhavna Keene RN RN ea Corrections: (The following items were deleted from the chart) 09:35 09:34 Patient left the ED. sv sv
--- NOTE | 2019-11-07 08:39 | RAD REPORT ---
EXAM DESCRIPTION: USExtmiguel Venous Uni Ltd11/07/2019 7:14 am CLINICAL HISTORY: Right leg pain and swelling. COMPARISON: 2017 FINDINGS: Right common femoral, superficial femoral, popliteal and right posterior tibial veins are compressible and demonstrate augmentation. Doppler demonstrates good flow. IMPRESSION: No evidence of deep venous thrombosis involving the right lower extremity.
[2019-11-07 09:44] VITALS: BP 161/66; TEMP 97.6; O2SAT 98
== END 2019-11-07 09:34 | disposition home or self-care (01) ==
LOC: ER 06:21
DX: I73.9 Peripheral vascular disease, unspecified (principal); I10 Essential (primary) hypertension; Z79.82 Long term (current) use of aspirin
CPT/HCPCS: 36415; 80048; 83735; 85025; 87040; 93971; 99284

== ENCOUNTER 2021-04-14 18:49 | Inpatient (IN) | payer OTHER ==
[2021-04-14 19:49] LABS: Absolute Lymphocytes (CBC) 2.8 K/uL (0.7-4.9); Basophils % 0.6 % (0-1.3); Hematocrit 42.7 % (39.6-49.0); Lymphocytes % 25.3 % (15.3-44.8); RBC Red Blood Cell Count 5.08 M/uL (4.33-5.43)
[2021-04-14 19:53] LABS: Protime INR 1.11
--- NOTE | 2021-04-14 20:04 | RAD REPORT ---
EXAM DESCRIPTION: RAD - Chest Single View - 04/14/2021 7:57 pm CLINICAL HISTORY: CHEST PAIN COMPARISON: Chest Single View dated 04/26/2018; CHEST PA AND LAT 2 VIEW dated 07/26/2014; ABDOMEN 1 V IEW KUB dated 11/18/2012; CHEST PA AND LAT 2 VIEW dated 08/28/2008 FINDINGS: Lines: None. Lungs: Linear and patchy opacities are noted at the left lung base. There are a few patches at the ri ght lung base as well. Pleural: No significant pleural effusions or pneumothorax. Cardiac: The heart size is within normal limits. Bones: No acute fractures. Other: IMPRESSION: Basilar airspace opacities, left greater than right which could reflect pneumonia
[2021-04-14] MEDS ORDERED: ONDANSETRON 4 MG/2 ML VIAL ONE (20:06)
[2021-04-14] MEDS ORDERED: MORPHINE 2 MG/ML SYR ONE (20:06)
[2021-04-14 20:12] LABS: ALT/SGPT 27 U/L (12-78); AST/SGOT 18 U/L (15-37); Albumin 3.9 g/dL (3.4-5.0); Alkaline Phosphatase 87 U/L (45-117); BUN Blood Urea Nitrogen 36 mg/dL (7-18); Bicarbonate 27 mmol/L (21-32); Bilirubin Direct 0.1 mg/dL (0-0.2); Bilirubin Total 0.4 mg/dL (0.2-1.0); Glucose Level 127 mg/dL (74-106); Potassium 4.5 mmol/L (3.5-5.1); Protein, Total 8.9 g/dL (6.4-8.2); Sodium Level 140 mmol/L (136-145)
[2021-04-14 20:13] LABS: Lipase 172 U/L (73-393); Magnesium 2.3 mg/dL (1.8-2.4); NT PRO-BNP 831 pg/mL (<450); Troponin (Emerg Dept Use Only) < 0.02 ng/mL (0.0-0.045)
[2021-04-14] MEDS ORDERED: NITROGLYCERIN 0.4 MG/TAB SL ONE (20:13)
[2021-04-14] MEDS ORDERED: NITROGLYCERIN/D5W 50 MG/250 ML BTL IV ONE (20:23)
[2021-04-14] MEDS ORDERED: NA CHLORIDE 0.9% 1,000 ML ONE (20:26)
[2021-04-14] MEDS ORDERED: HYDROMORPHONE HCL 0.5 MG/0.5 ML INJ ONE ×2 (20:48→20:53)
[2021-04-14] MEDS ORDERED: AZITHROMYCIN 500 MG INJ IVPB ONE (20:58)
[2021-04-14] MEDS ORDERED: CEFTRIAXONE 1000 MG/VIAL ONE (20:58)
[2021-04-14] MEDS ORDERED: NA CHLORIDE 0.9% 250 ML ONE (20:58)
--- NOTE | 2021-04-14 21:16 | RAD REPORT ---
EXAM DESCRIPTION: CTChest Abd Pelvis Wo Con - 04/14/2021 8:56 pm CLINICAL HISTORY: Abdominal Pain, Constipation;Chest pain COMPARISON: No comparisons TECHNIQUE: CT of the chest, abdomen, and pelvis was performed. All CT scans are performed using dose optimization technique as appropriate and may include automated exposure control or mA/KV adjustment according to patient size. FINDINGS: Thorax: Chest Wall: No abnormal mass Lungs: Mild nonspecific ground-glass opacities in the lung bases. Pleura: Trace effusions bilaterally. Shaunna/Mediastinum: No lymphadenopathy. Small hiatal hernia. Aorta/Pulmonary Arteries: Ascending thoracic aortic aneurysm measuring 4.2 cm. Heart: Coronary artery calcifications. Question left ventricular apical aneurysm. Abdomen/Pelvis: Liver: Too small to characterize liver lesions which are likely benign. Biliary: No biliary ductal dilatation. Stomach: No significant focal abnormality. Duodenum: No significant focal abnormality. Pancreas: No significant abnormality. Spleen: No significant abnormality. Adrenal: No suspicious lesions. Kidney/ureter: No hydronephrosis. No renal calculi. Too small to characterize and/or benign appearing renal lesions are noted. Retroperitoneum: No retroperitoneal adenopathy. Vascular: No aneurysm. Ectasia of the abdominal aorta. Bowel: No significant focal abnormality. Diverticulosis. No evidence of acute diverticulitis. Peritoneum: No ascites or free air. Bladder: Grossly unremarkable. Reproductive: No adnexal masses. Bones: No acute fracture. Other: n/a IMPRESSION: 1. Trace pleural effusions and mild basilar ground-glass opacities could reflect either mild infection or inflammation. 2. No acute intra-abdominal abnormality. 3. Mild aneurysmal dilatation of the ascending thoracic aorta measuring 4.2 cm. 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 This could be better assessed with echocardiography.
[2021-04-14 21:35] LABS: Urine Blood Negative (Negative); Urine Glucose Negative (Negative); Urine Protein 2+ (Negative); Urine Specific Gravity >=1.030 (1.005-1.030); Urine pH 5.5 (5.0-7.0)
--- NOTE | 2021-04-14 22:19 | EDPHYS ---
Physician Documentation [facility] Name: Nikolai Gray Age: 85 yrs Sex: Male : 1935 Arrival Date: 04/14/2021 Time: 18:58 Bed 28 Private MD: [facility] ED Physician Sergio Sahu HPI: 04/14 19:32 This 85 yrs old Male presents to ER via Wheelchair with complaints of mh7 Constipation. 19:32 The patient or guardian reports chest pain that is located primarily in the substernal mh7 area. Onset: 2 day(s) ago. The pain does not radiate. Associated signs and symptoms: Pertinent positives: Constipation, Pertinent negatives: abdominal pain, cough, diaphoresis, dizziness, headache, lower extremity pain, lower extremity swelling, lightheadedness, nausea, near syncope, palpitations, recent travel, shortness of breath, syncope, vomiting. The chest pain is described as a heaviness. Duration: The patient or guardian reports multiple episodes, that are intermittent, that wax and wane, with no pattern. Modifying factors: The symptoms are alleviated by nothing. the symptoms are aggravated by nothing. Severity of pain: At its worst the pain was moderate 2 day(s) ago, in the emergency department the pain is actually worse moderately. Historical: - Allergies: 20:24 No Known Allergies; bb - Home Meds: 20:24 Unable to obtain [Active]; bb - Immunization history:: Adult Immunizations up to date, Client reports having NOT received the Covid vaccine. - Social history:: Smoking status: unknown. ROS: 19:32 Constitutional: Negative for fever, chills, and weight loss, Eyes: Negative for injury, mh7 pain, redness, and discharge, ENT: Negative for injury, pain, and discharge, Neck: Negative for injury, pain, and swelling, Respiratory: Negative for shortness of breath, cough, wheezing, and pleuritic chest pain, Back: Negative for injury and pain, : Negative for injury, bleeding, discharge, and swelling, MS/Extremity: Negative for injury and deformity, Skin: Negative for injury, rash, and discoloration, Neuro: Negative for headache, weakness, numbness, tingling, and seizure, Psych: Negative for depression, anxiety, suicide ideation, homicidal ideation, and hallucinations, Allergy/Immunology: Negative for hives, rash, and allergies, Endocrine: Negative for neck swelling, polydipsia, polyuria, polyphagia, and marked weight changes, Hematologic/Lymphatic: Negative for swollen nodes, abnormal bleeding, and unusual bruising. Exam: 19:32 Head/Face: Normocephalic, atraumatic. Eyes: Pupils equal round and reactive to light, mh7 extra-ocular motions intact. Lids and lashes normal. Conjunctiva and sclera are non-icteric and not injected. Cornea within normal limits. Periorbital areas with no swelling, redness, or edema. 19:32 Neck: Trachea midline, no thyromegaly or masses palpated, and no cervical lymphadenopathy. Supple, full range of motion without nuchal rigidity, or vertebral point tenderness. No Meningismus. Chest/axilla: Normal chest wall appearance and motion. Nontender with no deformity. No lesions are appreciated. Cardiovascular: Regular rate and rhythm with a normal S1 and S2. No gallops, murmurs, or rubs. Normal PMI, no JVD. No pulse deficits. 19:32 Abdomen/GI: Soft, non-tender, with normal bowel sounds. No distension or tympany. No guarding or rebound. No evidence of tenderness throughout. Back: No spinal tenderness. No costovertebral tenderness. Full range of motion. Skin: Warm, dry with normal turgor. Normal color with no rashes, no lesions, and no evidence of cellulitis. MS/ Extremity: Pulses equal, no cyanosis. Neurovascular intact. Full, normal range of motion. Neuro: Awake and alert, GCS 15, oriented to person, place, time, and situation. Cranial nerves II-XII grossly intact. Motor strength 5/5 in all extremities. Sensory grossly intact. Cerebellar exam normal. Normal gait. Psych: Awake, alert, with orientation to person, place and time. Behavior, mood, and affect are within normal limits. 19:32 Constitutional: The patient appears alert, awake, diaphoretic, obviously ill, uncomfortable. 19:32 Constitutional: The patient appears anxious. 19:32 Respiratory: mild respiratory distress is noted, Respirations: normal, Breath sounds: rhonchi, that are mild, are located in both bases, Respiratory rate: 22 Vital Signs: 19:20 BP 182 / 103; Pulse 90; Resp 18 S; Temp 98.3(A); Pulse Ox 88% on R/A; Weight 88.9 kg bb (R); Height 6 ft. 0 in. (182.88 cm) (R); Pain 10/10; 19:45 BP 162 / 78; Pulse 88; Resp 22 S; Pulse Ox 93% on R/A; bb 19:55 BP 135 / 117; Pulse 93; Resp 26 S; Pulse Ox 90% on R/A; bb 20:00 BP 151 / 62; Pulse 93; Resp 26 S; Pulse Ox 92% on R/A; bb 20:10 BP 171 / 62; Pulse 94; Resp 24; Pulse Ox 86% on R/A; bb 20:20 BP 120 / 63; Pulse 98; Resp 22 S; Pulse Ox 95% on 2 lpm NC; bb 20:30 BP 107 / 54; Pulse 97; Resp 22 S; Pulse Ox 92% on 3 lpm NC; bb 21:02 BP 116 / 63; Pulse 98; Resp 20 S; Pulse Ox 99% on 2 lpm NC; bb 22:44 BP 111 / 47; Pulse 94; Resp 20 S; Pulse Ox 95% on R/A; bb 19:20 Body Mass Index 26.58 (88.90 kg, 182.88 cm) bb MDM: 22:16 Differential diagnosis: abnormal EKG, acute myocardial infarction, acute pericarditis, mh7 anxiety, coronary artery disease chest wall pain, congestive heart failure costochondritis, myocarditis, peptic ulcer disease, pneumonia, pneumothorax. HEART Score: History: Moderately Suspicious (1), ECG: Non specific repolarization disturbance / LBTB / PM (1), Age: > or = 65 years (2), Risk Factors: 1 or 2 risk factors (1), [Hypertension] Troponin: < or = 1 x Normal Limit (0), Total Score = 5. Data reviewed: vital signs, nurses notes, lab test result(s), cardiac enzymes, CBC, electrolytes, EKG, radiologic studies, CT scan, plain films. Data interpreted: Pulse oximetry: on 4L(s) per nasal canula, is 99 %. Interpretation: acceptable. Counseling: I had a detailed discussion with the patient and/or guardian regarding: the historical points, exam findings, and any diagnostic results supporting the discharge/admit diagnosis, lab results, radiology results, the need for further work-up and treatment in the hospital. Response to treatment: the patient's symptoms have markedly improved after treatment. 22:19 Patient medically screened. [facility] 04/14 19:39 Order name: Basic Metabolic Panel [facility] 04/14 19:39 Order name: CBC with Diff; Complete Time: 19:59 [facility] 04/14 19:39 Order name: LFT's [facility] 04/14 19:39 Order name: Magnesium [facility] 04/14 19:39 Order name: NT PRO-BNP [facility] 04/14 19:39 Order name: PT-INR; Complete Time: 19:59 [facility] 04/14 19:39 Order name: Troponin (emerg Dept Use Only) [facility] 04/14 19:40 Order name: Lipase [facility] 04/14 19:41 Order name: Influenza Screen (a \T\ B); Complete Time: 22:17 [facility] 04/14 20:05 Order name: Blood Culture Adult (2) [facility] 04/14 20:05 Order name: Lactate; Complete Time: 21:29 [facility] 04/14 20:05 Order name: Procalcitonin [facility] 04/14 21:34 Order name: Urine Dipstick-Ancillary; Complete Time: 21:38 [facility] 04/14 19:39 Order name: XRAY Chest (1 view); Complete Time: 20:05 [facility] 04/14 19:39 Order name: EKG; Complete Time: 19:40 [facility] 04/14 20:16 Order name: CT Chest Abdomen Pelvis W/O Contrast; Complete Time: 21:29 [facility] 04/14 21:39 Order name: SARS-COV-2 RT PCR; Complete Time: 21:40 [facility] 04/14 22:07 Order name: CRP al1 04/14 22:55 Order name: C-Reactive Protein [facility] 04/14 19:39 Order name: Cardiac monitoring; Complete Time: 19:39 [facility] 04/14 19:39 Order name: EKG - Nurse/Tech; Complete Time: 19:39 [facility] 04/14 19:39 Order name: IV Saline Lock; Complete Time: 19:40 [facility] 04/14 19:39 Order name: Labs collected and sent; Complete Time: 20:25 [facility] 04/14 19:39 Order name: O2 Per Protocol; Complete Time: 20:25 [facility] 04/14 19:39 Order name: O2 Sat Monitoring; Complete Time: 20:25 [facility] 04/14 19:39 Order name: Urine Dipstick-Ancillary (obtain specimen); Complete Time: 21:23 [facility] Administered Medications: 19:43 Drug: morphine 2 mg Route: IVP; Site: right antecubital; bb 20:00 Follow up: Response: Pain is unchanged, physician notified bb 19:43 Drug: Zofran (Ondansetron) 4 mg Route: IVP; Site: right antecubital; bb 20:00 Follow up: Response: No adverse reaction bb 19:50 Drug: Nitroglycerin 0.4 mg Route: Sublingual; bb 20:00 Follow up: Response: No change in condition; Pain is unchanged, physician notified bb 20:03 Drug: Nitro Drip - (Nitroglycerin 50 mg, D5W 250 ml) Route: IV; Rate: 5 mcg/min; Site: cc4 right antecubital; 21:15 Follow up: IV Status: Order to discontinue infusion bb 20:27 Drug: Dilaudid (HYDROmorphone) 0.5 mg Route: IVP; Site: left forearm; cc4 21:00 Follow up: Response: Pain is decreased; RASS: Alert and Calm (0) bb 20:40 Drug: Rocephin (cefTRIAXone) 1 grams Route: IV; Rate: per protocol; Site: left forearm; bb 20:45 Follow up: IV Status: Completed infusion; IV Intake: 10ml bb 21:15 Drug: NS 0.9% 500 ml Route: IV; Rate: bolus; Site: right antecubital; bb 22:15 Follow up: IV Status: Completed infusion; IV Intake: 500ml bb 21:20 Drug: AZITHromycin 500 mg Route: IVPB; Infused Over: 1 hrs; Site: right antecubital; cc4 22:20 Follow up: IV Status: Completed infusion; IV Intake: 250ml bb 22:45 Drug: Albuterol HFA Inhaler 2 puffs Route: Inhalation; cc4 23:04 Not Given (Physician Discretion): Ativan (LORazepam) 0.5 mg IVP once bb Disposition Summary: 04/14/21 22:19 Hospitalization Ordered Hospitalization Status: Inpatient Admission [facility] Provider: Bhavani Nova Location: Telemetry/MedSurg (Inpatient) mh7 Condition: Stable mh7 Problem: new mh7 Symptoms: have improved mh7 Bed/Room Type: Standard [facility] Room Assignment: 407(04/14/21 22:24) tl1 Diagnosis - Chest pain, unspecified mh7 - Pneumonia due to SARS-associated coronavirus mh7 - Abdominal pain, Generalized mh7 Forms: - Medication Reconciliation Form mh7 - SBAR form 7 Signatures: Dispatcher [employer] EDNH Alessandra Marcus, RN RN bb Juice Kirkland, GMAT TUTOR-C GMAT TUTOR-Cla1 Coretta Ramirez RN RN tl1 Sergio Sahu MD MD 7 Janeth García RN RN cc4 Corrections: (The following items were deleted from the chart) 20:32 19:42 CORONAVIRUS+BRZ ordered. [facility] EDNH 22:24 22:19 7 tl1
--- NOTE | 2021-04-14 22:19 | ER ---
Nurse's Notes [facility] Name: Nikolai Gray Age: 85 yrs Sex: Male : 1935 Arrival Date: 04/14/2021 Time: 18:58 Bed 28 Private MD: Alvarez Douglas Diagnosis: Chest pain, unspecified;Pneumonia due to SARS-associated coronavirus;Abdominal pain, Generalized Presentation: 04/14 19:20 Chief complaint: Spouse and/or significant other states: pt c/o chest pain for 2 to 3 bb days and has not had a bowel movement in 6 or 7 days. Coronavirus screen: At this time, the client does not indicate any symptoms associated with coronavirus-19. Ebola Screen: No symptoms or risks identified at this time. Initial Sepsis Screen: Does the patient meet any 2 criteria? No. Patient's initial sepsis screen is negative. Does the patient have a suspected source of infection? No. Patient's initial sepsis screen is negative. Risk Assessment: Do you want to hurt yourself or someone else? Patient reports no desire to harm self or others. Onset of symptoms was April 12, 2021. 19:20 Method Of Arrival: Wheelchair bb 19:20 Acuity: ISAC 2 bb Historical: - Allergies: 20:24 No Known Allergies; bb - Home Meds: 20:24 Unable to obtain [Active]; bb - Immunization history:: Adult Immunizations up to date, Client reports having NOT received the Covid vaccine. - Social history:: Smoking status: unknown. Screenin:30 Abuse screen: Denies threats or abuse. Nutritional screening: No deficits noted. bb Tuberculosis screening: No symptoms or risk factors identified. Fall Risk Total Luciano Fall Scale indicates High Risk Score (45 or more points). Fall prevention measures have been instituted. Side Rails Up X 2 Family Present and informed to notify staff if the need to leave the bedside As available patient and family educated on Fall Prevention Program and Strategies. Assessment: 19:30 General: Appears distressed, Behavior is agitated, anxious, Reports chest pain. Pain: bb Complains of pain in chest Pain currently is 10 out of 10 on a pain scale. Neuro: Level of Consciousness is awake, alert, Oriented to person, place. Cardiovascular: Heart tones S1 S2 present Capillary refill < 3 seconds. Respiratory: Airway is patent Respiratory effort is labored, Respiratory pattern is tachypnea Breath sounds are diminished bilaterally. GI: Abdomen is non-distended, Bowel sounds present X 4 quads. Abd is soft X 4 quads. Derm: Skin is diaphoretic, Skin is pale, Skin temperature is warm. Musculoskeletal: Circulation, motion, and sensation intact. 19:50 Reassessment: Dr Sauh notified pt has had no relief from pain medication received new bb order for nitro SL pt medicated. 20:00 Reassessment: No changes from previously documented assessment. IV nitroglycerin 50 mg/ cc4 250 ml D5W initiated \T\ 10 ml/hr/pump right AC #18 g angiocath/saline lock with NS 500 ml bolus hung to right AC per Alessandra RN (charge nurse) \T\ infusing with no difficulty; \T\ bedside. Patient states symptoms have not improved. reports has h/o dementia.. 20:45 Reassessment: pt assisted to CT scan by this RN via wheelchair. bb 21:00 Reassessment: pt returned from CT via wheelchair accompanied by this RN. Pt appears bb more comfortable, resp less labored, color pink, skin dry. IV sites intact with no erythema or edema noted. Family at bedside awaiting CT results. 21:15 Reassessment: Dr Sahu notified of pt's BP 116/63 nitro drip discontinued per verbal bb order. 22:39 Reassessment: pt resting quietly, resp unlabored, IV sites intact, no erythema or edema bb noted, report called to receiving RN for room 407. Vital Signs: 19:20 BP 182 / 103; Pulse 90; Resp 18 S; Temp 98.3(A); Pulse Ox 88% on R/A; Weight 88.9 kg bb (R); Height 6 ft. 0 in. (182.88 cm) (R); Pain 10/10; 19:45 BP 162 / 78; Pulse 88; Resp 22 S; Pulse Ox 93% on R/A; bb 19:55 BP 135 / 117; Pulse 93; Resp 26 S; Pulse Ox 90% on R/A; bb 20:00 BP 151 / 62; Pulse 93; Resp 26 S; Pulse Ox 92% on R/A; bb 20:10 BP 171 / 62; Pulse 94; Resp 24; Pulse Ox 86% on R/A; bb 20:20 BP 120 / 63; Pulse 98; Resp 22 S; Pulse Ox 95% on 2 lpm NC; bb 20:30 BP 107 / 54; Pulse 97; Resp 22 S; Pulse Ox 92% on 3 lpm NC; bb 21:02 BP 116 / 63; Pulse 98; Resp 20 S; Pulse Ox 99% on 2 lpm NC; bb 22:44 BP 111 / 47; Pulse 94; Resp 20 S; Pulse Ox 95% on R/A; bb 19:20 Body Mass Index 26.58 (88.90 kg, 182.88 cm) bb ED Course: 18:58 Patient arrived in ED. am2 18:58 Alvarez Douglas DO is Private Physician. am2 19:20 Arm band placed on Patient placed in an exam room, on a stretcher, on oxygen, on bb radiographer cardiac catheterization, on pulse oximetry. EKG completed in triage. Results shown to MD. Family accompanied patient. 19:30 Patient has correct armband on for positive identification. Bed in low position. Call bb light in reach. Side rails up X2. Adult w/ patient. part maker on. Pulse ox on. NIBP on. Warm blanket given. 19:32 Sergio Sahu MD is Attending Physician. 7 19:38 Janeth García, DARIAN is Primary Nurse. cc4 19:57 XRAY Chest (1 view) In Process Unspecified. EDMS 20:04 Influenza Screen (a \T\ B) Sent. bc5 20:24 Triage completed. bb 20:25 Inserted saline lock: 20 gauge in left forearm, using aseptic technique. bb 20:55 CT Chest Abdomen Pelvis W/O Contrast In Process Unspecified. EDMS 22:18 Bhavani Nova MD is Hospitalizing Provider. [facility] 22:43 No provider procedures requiring assistance completed. Patient admitted, IV remains in bb place. Administered Medications: 19:43 Drug: morphine 2 mg Route: IVP; Site: right antecubital; bb 20:00 Follow up: Response: Pain is unchanged, physician notified bb 19:43 Drug: Zofran (Ondansetron) 4 mg Route: IVP; Site: right antecubital; bb 20:00 Follow up: Response: No adverse reaction bb 19:50 Drug: Nitroglycerin 0.4 mg Route: Sublingual; bb 20:00 Follow up: Response: No change in condition; Pain is unchanged, physician notified bb 20:03 Drug: Nitro Drip - (Nitroglycerin 50 mg, D5W 250 ml) Route: IV; Rate: 5 mcg/min; Site: cc4 right antecubital; 21:15 Follow up: IV Status: Order to discontinue infusion bb 20:27 Drug: Dilaudid (HYDROmorphone) 0.5 mg Route: IVP; Site: left forearm; cc4 21:00 Follow up: Response: Pain is decreased; RASS: Alert and Calm (0) bb 20:40 Drug: Rocephin (cefTRIAXone) 1 grams Route: IV; Rate: per protocol; Site: left forearm; bb 20:45 Follow up: IV Status: Completed infusion; IV Intake: 10ml bb 21:15 Drug: NS 0.9% 500 ml Route: IV; Rate: bolus; Site: right antecubital; bb 22:15 Follow up: IV Status: Completed infusion; IV Intake: 500ml bb 21:20 Drug: AZITHromycin 500 mg Route: IVPB; Infused Over: 1 hrs; Site: right antecubital; cc4 22:20 Follow up: IV Status: Completed infusion; IV Intake: 250ml bb 22:45 Drug: Albuterol HFA Inhaler 2 puffs Route: Inhalation; cc4 23:04 Not Given (Physician Discretion): Ativan (LORazepam) 0.5 mg IVP once bb Intake: 20:45 IV: 10ml; Total: 10ml. bb 22:15 IV: 500ml; Total: 510ml. bb 22:20 IV: 250ml; Total: 760ml. bb Outcome: 22:19 Decision to Hospitalize by Provider. [facility] 22:43 Admitted to Tele accompanied by tech, family with patient, via stretcher, room 407. bb 22:43 Condition: stable 22:43 Instructed on the need for admit. 23:39 Patient left the ED. bb Signatures: Dispatcher [employer] EDMS Alessandra Marcus RN RN bb Mojgan Jefferson am2 Sergio Sahu MD MD 7 Janeth García RN RN 4 Negra Holloway RN RN 5 Corrections: (The following items were deleted from the chart) 20:32 20:04 CORONAVIRUS+MR.LAB.NELLZ drawn and sent. bc5 EDNC 04/15 05:03 04/14 20:30 Reassessment: Sleeping; BP decreasing to 107/54; HR 97; IV NTG cc4 discontinued; \T\ bedside; NAD. Patient states feeling better. Patient states symptoms have improved. cc4
--- NOTE | 2021-04-14 22:26 | P.HP ---
Certification for Inpatient Patient admitted to: Inpatient With expected LOS: >2 Midnights Patient will require the following post-hospital care: None Practitioner: I am a practitioner with admitting privileges, knowledge of patient current condition, hospital course, and medical plan of care. Services: Services provided to patient in accordance with Admission requirements found in Title 42 Section 412.3 of the Code of Federal Regulations <Juice Kirkland - Last Filed: 04/14/21 22:20> Patient History Date of Service: 04/14/21 Primary Care Provider: Dr. Best Reason for admission: COVID-19 pneumonia, chest pain History of Present Illness: 85-year-old male with history of hypertension, dementia presents emergency department for chest pain, constipation. Patient also tested positive for Covid on 04/05/2021 and received monoclonal antibodies on 04/06/2021. Patient was initially hypotensive with blood pressure 182/103 and 88% on room air. 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 Case was discussed with cardiology who suggest that these findings are likely chronic in nature and can be evaluated echocardiogram in the morning. Patient treated with IV steroids, supplemental oxygen in the emergency department, ED provider wishes to admit for further evaluation and management of COVID-19 associated pneumonia. Patient's family at bedside, plan discussed, are amendable. - Past Medical/Surgical History -: Dementia -: Hypertension -: Left rotator cuff surgery Psychosocial/ Personal History: Patient lives at home with his - Family History Father -: Hypertension Mother -: Hypertension - Social History Smoking Status: Never smoker Alcohol use: No CD- Drugs: No Caffeine use: No Place of Residence: Home <Juice Kirkland - Last Filed: 04/14/21 22:20> Date of Service: 04/14/21 <Bhavani Nova - Last Filed: 04/22/21 05:07> Allergies No Known Allergies Allergy (Verified 07/24/14 17:38) Home Medications: Donepezil [Aricept*] 5 mg PO BEDTIME 04/15/21 Benzonatate [Tessalon Perle*] 100 mg PO TID PRN #30 cap 04/16/21 Cholecalciferol (Vitamin D3) [Vitamin D 1000 Iu Tab*] 4,000 unit PO DAILY #90 tab 04/16/21 Fludrocortisone [Florinef *] 0.1 mg PO DAILY #30 tab 04/16/21 Zinc Sulfate [Zinc Sulfate*] 220 mg PO DAILY #30 cap 04/16/21 predniSONE [Prednisone*] 20 mg PO BID #11 tab 04/16/21 Review of Systems is unable to be obtained <Juice Kirkland - Last Filed: 04/14/21 22:20> Physical Examination - Physical Exam General: Alert, In no apparent distress, Oriented x1, Demented, Other (Anxious) HEENT: Atraumatic, PERRLA, Mucous membr. moist/pink, EOMI, Sclerae nonicteric Neck: Supple, 2+ carotid pulse no bruit, No LAD, Without JVD or thyroid abnormality Respiratory: Diminished Cardiovascular: Regular rate/rhythm, Normal S1 S2, Systolic murmur Capillary refill: <2 Seconds Gastrointestinal: Normal bowel sounds, No tenderness Musculoskeletal: No tenderness Integumentary: No rashes Neurological: Normal speech, Normal strength at 5/5 x4 extr, Normal tone, Normal affect - Studies Laboratory Data (last 24 hrs) 04/14/21 19:33: PT 12.8 H, INR 1.11 04/14/21 19:33: WBC 11.20 H, Hgb 14.0, Hct 42.7, Plt Count 184 04/14/21 19:33: Sodium 140, Potassium 4.5, BUN 36 H, Creatinine 1.83 H, Glucose 127 H, Magnesium 2.3, Total Bilirubin 0.4, AST 18, ALT 27, Alkaline Phosphatase 87, Lipase 172 Microbiology Data (last 24 hrs): 04/14/21 19:55 Nasopharnyx Influenza Type A Antigen Screen - Final 04/14/21 19:55 Nasopharnyx Influenza Type B Antigen Screen - Final <Juice Kirkland - Last Filed: 04/14/21 22:20> Assessment and Plan - Plan Assessment: Acute hypoxic respiratory failure secondary to COVID-19 pneumonia Chest pain CKD 3 Hypertension Dementia Plan: Acute hypoxic respiratory failure secondary to COVID-19 pneumonia: 88% on room air, supplemental oxygen as needed. Pulmonology consult in place, trend CRP/ferritin levels. Patient received monoclonal antibodies on 04/06/2021 continue with IV steroids, oral supplements. Chest pain: Initial troponin negative, EKG unremarkable. 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 Case was discussed with cardiology, findings likely chronic in nature will obtain echocardiogram for further evaluation, monitor on telemetry, trend troponins. Echocardiogram ordered for the morning. CKD 3: Patient renal function similar to baseline, slightly worse. We will continue to monitor and consult nephrology. Hypertension: Obtain and continue medications, adjust as necessary Dementia: Patient may require sedation, appears confused, slightly agitated. Family at bedside. DVT PPX: Heparin Code status: Full Discharge Plan: Home Plan to discharge in: Greater than 2 days - Advance Directives Does patient have a Living Will: No Does patient have a Durable POA for Healthcare: No - Code Status/Comfort Care Code Status Assessed: Yes (Full code) Critical Care: No Time Spent Managing Pts Care (In Minutes): 55 <Juice Kirkland - Last Filed: 04/14/21 22:20> - Problems (Diagnosis) (1) Pneumonia due to COVID-19 virus Status: Acute <Bhavani Nova - Last Filed: 04/22/21 05:07> Date of Service: 04/15/21 Subjective Agree with the HPI as above Review of Systems 10-point ROS is otherwise unremarkable Physical Examination - Vital Signs Reviewed - Physical Exam General: Alert, In no apparent distress, Oriented x3 Respiratory: Clear to auscultation bilaterally, Normal air movement Cardiovascular: Regular rate/rhythm, Normal S1 S2, No murmurs Gastrointestinal: Normal bowel sounds, Soft and benign, Non-distended, No tenderness Musculoskeletal: No clubbing, No swelling, No tenderness Neurological: Sensation intact, Cranial nerves 3-12 intact, Normal affect Lymphatics: No axilla or inguinal lymphadenopathy Assessment & Plan - Problems (Diagnosis) (1) Pneumonia due to COVID-19 virus Status: Acute - Plan Continue with plan of care as mentioned below: 1. Continue with IV steroids 2. Monitor inflammatory markers 3. Repeat chest x-ray is symptoms are progressively worsening 4. O2 per protocol-patient is on room air; may be able to discharge in a.m. 5. Pulmonary consultation as an outpatient 6. Continue with albuterol inhaler therapy; also supportive care 7. Monitor LFTs 8. GI and DVT prophylaxis <Bhavani Nova - Last Filed: 04/22/21 05:07>
[2021-04-14] MEDS ORDERED: ALBUTEROL INHALER 60 PUFF/8 GM IH ONE (23:07)
[2021-04-14] MEDS ORDERED: ONDANSETRON 4 MG/2 ML VIAL IV PRN (23:37)
[2021-04-14] MEDS ORDERED: BENZONATATE 100 MG CAP PO PRN (23:37)
[2021-04-14] MEDS ORDERED: MORPHINE 2 MG/ML SYR IV PRN (23:37)
[2021-04-14 23:51] VITALS: BMI 26.3
[2021-04-15] MEDS: LORazepam 2 MG/ML VIAL IV PRN ×3 (00:08→20:13)
[2021-04-15 03:49] LABS: Absolute Lymphocytes (CBC) 1.2 K/uL (0.7-4.9); Basophils % 0.3 % (0-1.3); Hematocrit 36.2 % (39.6-49.0); Lymphocytes % 14.1 % (15.3-44.8); MPV 7.8 fL (7.6-11.3); RBC Red Blood Cell Count 4.28 M/uL (4.33-5.43)
[2021-04-15 04:30] LABS: ALT/SGPT 20 U/L (12-78); AST/SGOT 13 U/L (15-37); Albumin 3.3 g/dL (3.4-5.0); Alkaline Phosphatase 68 U/L (45-117); BUN Blood Urea Nitrogen 39 mg/dL (7-18); Bicarbonate 26 mmol/L (21-32); Bilirubin Total 0.3 mg/dL (0.2-1.0); Creatine Phosphokinase 119 U/L (39-308); Ferritin 137.8 ng/mL (26-388); Glucose Level 138 mg/dL (74-106); HDL Cholesterol 49 mg/dL (40-60); LDL Cholesterol, Calculated 74 (<130); Potassium 5.4 mmol/L (3.5-5.1); Protein, Total 7.3 g/dL (6.4-8.2); Sodium Level 141 mmol/L (136-145); Thyroid Stimulating Hormone 0.899 uIU/mL (0.360-3.740); Troponin I < 0.02 ng/mL (0.0-0.045); Uric Acid 5.9 mg/dL (3.5-7.2)
[2021-04-15] MEDS: HEPARIN 5000 UNIT/ML 1 ML VIAL SQ SCH ×2 (08:50→20:13)
[2021-04-15] MEDS: VITAMIN D 1000 UNIT TAB PO SCH (08:50)
[2021-04-15] MEDS: ASCORBIC ACID 500 MG TABLET PO SCH ×4 (08:50→20:13)
[2021-04-15] MEDS: ZINC SULFATE 220 MG CAP PO SCH (08:51)
[2021-04-15] MEDS: THIAMINE HCL 100 MG TABLET PO SCH (08:51)
[2021-04-15] MEDS: ASPIRIN EC 81 MG TAB PO SCH (08:51)
[2021-04-15] MEDS ORDERED: METHYLPREDNISOLONE 40 MG INJ IV SCH (09:00)
[2021-04-15] MEDS ORDERED: SOD POLYSTYREN SUL 15 GM/60 ML UCUP PR ONE (09:27)
[2021-04-15] MEDS ORDERED: FUROSEMIDE 40 MG/4 ML VIAL IV ONE (09:29)
[2021-04-15] MEDS ORDERED: FLUDROCORTISONE 0.1 MG TAB PO SCH (11:00)
--- NOTE | 2021-04-15 11:17 | P.CNS ---
Date of Consult: 04/15/21 Reason for Consult: COVID pneumonia Primary Care Provider: Dr. Best Chief Complaint: COVID-19 pneumonia, chest pain History of Present Illness: AGe 85HX of HTN AW COVID penumonia, Reveived Regeneron, Renal failure. Hypoxemia. Pt resting Allergies No Known Allergies Allergy (Verified 07/24/14 17:38) Home Medications: Losartan Potassium 50 mg PO DAILY 04/15/21 - Past Medical/Surgical History -: Dementia -: Hypertension -: Left rotator cuff surgery Psychosocial/ Personal History: Patient lives at home with his - Family History Father Medical History: Hypertension Mother Medical History: Hypertension - Social History Smoking Status: Unknown if ever smoked Alcohol use: No CD- Drugs: No Caffeine use: No Place of Residence: Home Review of Systems is unable to be obtained Physical Examination Temp Pulse Resp BP Pulse Ox 97.8 F 54 18 135/60 93 04/15/21 04:00 04/15/21 04:00 04/15/21 04:00 04/15/21 04:00 04/15/21 04:00 General: Unresponsive Respiratory: Clear to auscultation bilaterally, Diminished Laboratory Data (last 24 hrs) 04/14/21 19:33: PT 12.8 H, INR 1.11 04/14/21 19:33: WBC 11.20 H, Hgb 14.0, Hct 42.7, Plt Count 184 04/14/21 19:33: Sodium 140, Potassium 4.5, BUN 36 H, Creatinine 1.83 H, Glucose 127 H, Magnesium 2.3, Total Bilirubin 0.4, AST 18, ALT 27, Alkaline Phosphatase 87, Lipase 172 - Problems (1) Pneumonia due to COVID-19 virus Current Visit: Yes Status: Acute Plan: Age 85 AW poss COVIDpenumonia. minimal changes on CT scan onNC O2/ HX of CRF. / VS stable. S/B nephrology /poss DC am/
--- NOTE | 2021-04-15 14:44 | ECHO ---
HEIGHT: 6 ft 0 in WEIGHT: 194 lb 0 oz DATE OF STUDY: 04/15/[address]: Juice Kirkland NP 2-DIMENSIONAL: YES M.MODE: YES DOPPLER: YES COLOR FLOW: YES TDS: YES PORTABLE: NO DEFINITY: NO BUBBLE STUDY: NO DIAGNOSIS: EVALUATE FOR LEFT VENTRICULAR APICAL ANERYSM CARDIAC HISTORY: CATHERIZATION: NO SURGERY: NO PROSTHETIC VALVE: NO PACEMAKER: NO MEASUREMENTS (cm) DIASTOLIC (NORMALS) SYSTOLIC (NORMALS) IVSd 1.1 (0.6-1.2) LA Diam 2.3 (1.9-4.0) LVEF 60-65% LVIDd 3.5 (3.5-5.7) LVIDs 1.9 (2.0-3.5) %FS 45% LVPWd 1.1 (0.6-1.2) Ao Diam 3.0 (2.0-3.7) 2 DIMENSIONAL ASSESSMENT: RIGHT ATRIUM: NORMAL LEFT ATRIUM: NORMAL RIGHT VENTRICLE: NORMAL LEFT VENTRICLE: MILD LEFT VENTRICULAR HYPERTROPHY TRICUSPID VALVE: NORMAL MITRAL VALVE: NORMAL PULMONIC VALVE: NORMAL AORTIC VALVE: NORMAL PERICARDIAL EFFUSION: NONE AORTIC ROOT: NORMAL LEFT VENTRICULAR WALL MOTION: NORMAL DOPPLER/COLOR FLOW: SEE BELOW. COMMENTS: NORMAL LEFT VENTRICULAR EJECTION FRACTION 60-65%. NORMAL WALL MOTION. MILD TRIUCSPID REGURGITATION. MILD LEFT VENTRICULAR HYPERTROPHY. TECHNOLOGIST: Maco MORALES
--- NOTE | 2021-04-15 16:22 | P.PN ---
Subjective Date of Service: 04/15/21 Subjective: No new changes, No C/O voiced, Improving Review of Systems 10-point ROS is otherwise unremarkable Physical Examination - Vital Signs Temperature: 97.4 F Blood Pressure: 131/58 Pulse: 67 Respirations: 20 Pulse Ox (%): 95 - Physical Exam General: Alert, In no apparent distress, Oriented x3 Respiratory: Clear to auscultation bilaterally, Normal air movement Cardiovascular: Regular rate/rhythm, Normal S1 S2, No murmurs Gastrointestinal: Normal bowel sounds, Soft and benign, Non-distended, No tenderness Musculoskeletal: No clubbing, No swelling, No tenderness Neurological: Sensation intact, Cranial nerves 3-12 intact, Normal affect Lymphatics: No axilla or inguinal lymphadenopathy - Studies Laboratory Data (last 24 hrs) 04/14/21 19:33: PT 12.8 H, INR 1.11 04/14/21 19:33: WBC 11.20 H, Hgb 14.0, Hct 42.7, Plt Count 184 04/14/21 19:33: Sodium 140, Potassium 4.5, BUN 36 H, Creatinine 1.83 H, Glucose 127 H, Magnesium 2.3, Total Bilirubin 0.4, AST 18, ALT 27, Alkaline Phosphatase 87, Lipase 172 Microbiology Data (last 24 hrs): 04/14/21 19:55 Nasopharnyx Influenza Type A Antigen Screen - Final 04/14/21 19:55 Nasopharnyx Influenza Type B Antigen Screen - Final Medications List Reviewed: Yes Assessment & Plan - Problems (Diagnosis) (1) Pneumonia due to COVID-19 virus Status: Acute - Plan 1. Continue with IV steroids 2. Monitor inflammatory markers 3. Repeat chest x-ray is symptoms are progressively worsening 4. O2 per protocol-patient is on room air; may be able to discharge in a.m. 5. Pulmonary consultation as an outpatient 6. Continue with albuterol inhaler therapy; also supportive care 7. Monitor LFTs 8. GI and DVT prophylaxis Discharge Plan: Home Plan to discharge in: Greater than 2 days - Advance Directives Does patient have a Living Will: No Does patient have a Durable POA for Healthcare: No - Code Status/Comfort Care Code Status Assessed: Yes Code Status: Full Code Critical Care: No Time Spent Managing PTS Care (In Minutes): 45
[2021-04-15] MEDS: METHYLPREDNISOLONE 40 MG INJ IV SCH (20:13)
--- NOTE | 2021-04-16 01:42 | CON ---
Date of Consultation: 04/15/2021 Chief Complaint: Chronic kidney disease stage 3B. The patient has multiple medical problems includi ng history of chronic kidney disease stage 3B, dementia, hypertension, benign nephrosclerosis. The p atesthela is admitted for COVID pneumonia and chest pain. History Of Present Illness: He is an 85-year-old man with history of hypertension, hypertensive hear t and kidney disease. He presented to the emergency department for chest pain and abdominal discomfo rt and constipation. Patient tested positive for COVID-19 on 04/05, and received monoclonal antibodi es on 04/06/2021. Initially, in the emergency room, patient was hypertensive and SpO2 was 88% on [place] m air. Patient received oxygen treatment and he was found to have creatinine of 1.83, GFR of 35, BNP was elevated up to 831. Urinalysis showed 2+ protein. CT scan of the abdomen and pelvis without co ntrast showed trace pleural effusion and aneurysmal dilatation of the ascending thoracic aorta measur ing 4.2 cm and left ventricular apical aneurysm, which was evaluated by spar machine operator as well on echoc ardiogram. The patient received IV steroids and supplemental oxygen in the emergency room for hypoxe laurie respiratory failure and COVID pneumonia. Past Medical History: Dementia, hypertension, left rotator cuff injury, chronic kidney disease, prot einuria, benign nephrosclerosis. Social History: Never smoker. Alcohol denies. Family History: Father with hypertension and mother, hypertension. Review of Systems: Unable to obtain. Physical Examination: General: Patient is not in apparent distress. He has dementia. He is oriented to himself. Appears anxious. Eyes: EOMI, anicteric sclerae. Neck: Supple. No bruits. Lungs: Bilateral breath sounds present. Few crackles. Cardiovascular: S1, S2. Systolic murmur 2/6, left lower sternal border. Abdomen: Soft, benign, nontender. Extremities: No edema. Laboratory Data: Sodium 140, potassium 4.5, BUN 36, creatinine 1.83, glucose 127, magnesium 2.3. IN R 1.11. Blood work subsequently was obtained today and shows sodium 141, potassium 5.4, chloride 111 , CO2 26, BUN 39, creatinine 1.75, glucose 138, total bilirubin 0.3, magnesium 2.0. Impression And Plan: 1.Chronic kidney disease stage 3B. Patient admitted for hypoxemic respiratory failure, COVID pneumo dragan. Cardiology workup is initiated for chest pain. He has some aneurysmal changes in ascending aor ta and left ventricle. Echocardiogram was ordered already by the spar machine operator. CT scan without cont rast did not show obstructive uropathy. Today's blood work revealed hyperkalemia. Renal function is stable. Patient has blood culture obtained for bacteremia screen and blood culture is pending. 2.Hyperkalemia. Patient was treated with Kayexalate. Continue to monitor electrolytes and avoid hi gh potassium intake. Patient will continue Lasix for mild hyperkalemia and mild fluid overload. 3.Proteinuria. The patient has [id number] proteinuria. Workup was initiated for proteinuria and plan is to check urine-protein electrophoresis with immunofixation. FADY/MODL Voice ID: [id number] Report ID: [id number]
[2021-04-16] MEDS: LORazepam 2 MG/ML VIAL IV PRN (02:03)
[2021-04-16 03:57] LABS: Absolute Lymphocytes (CBC) 0.7 K/uL (0.7-4.9); Basophils % 0.2 % (0-1.3); Hematocrit 36.2 % (39.6-49.0); Lymphocytes % 8.7 % (15.3-44.8); RBC Red Blood Cell Count 4.34 M/uL (4.33-5.43)
[2021-04-16 04:40] LABS: Albumin 3.2 g/dL (3.4-5.0); Bilirubin Total 0.3 mg/dL (0.2-1.0); C-Reactive Protein 77.7 mg/L (<3.00); Ferritin 193.6 ng/mL (26-388); Magnesium 2.1 mg/dL (1.8-2.4); Potassium 4.4 mmol/L (3.5-5.1); Protein, Total 7.4 g/dL (6.4-8.2); Uric Acid 7.1 mg/dL (3.5-7.2)
[2021-04-16 06:24] LABS: Blood Morphology Comment NOT SEEN (NOT SEEN); Platelet Estimate ADEQ
[2021-04-16] MEDS: ASCORBIC ACID 500 MG TABLET PO SCH (07:40)
[2021-04-16] MEDS: ASPIRIN EC 81 MG TAB PO SCH (07:40)
[2021-04-16] MEDS: THIAMINE HCL 100 MG TABLET PO SCH (07:40)
[2021-04-16] MEDS: VITAMIN D 1000 UNIT TAB PO SCH (07:40)
[2021-04-16] MEDS: ZINC SULFATE 220 MG CAP PO SCH (07:40)
[2021-04-16] MEDS: HEPARIN 5000 UNIT/ML 1 ML VIAL SQ SCH (07:40)
[2021-04-16] MEDS: METHYLPREDNISOLONE 40 MG INJ IV SCH (07:41)
[2021-04-16 12:23] VITALS: O2SAT 96
--- NOTE | 2021-04-16 14:50 | PN ---
Date of Progress Note: 04/16/2021 Subjective: The patient was admitted with COVID pneumonia, respiratory failure. The patient had acu te kidney injury on chronic kidney disease. The patient is feeling much better today. Physical Examination: Vital Signs: Blood pressure 147/62, pulse of 64. The patient had good urine output, voiding. Chest: Faint crackles bilateral. Heart: S1, S2. Systolic murmur. Abdomen: Soft, nontender. Extremities: No edema. Neurologic: Alert. No focality. Laboratory Data: H and H 12/36.2. Sodium 140, potassium 4.4, bicarb 26, BUN 38, creatinine 1.7, binh cium of 9, magnesium of 2. Current Medications: The patient on include aspirin, heparin, Lasix 40, zinc sulfate, fludrocortison e, Solu-Medrol, thiamin, cholecalciferol, and vitamin C. Assessment And Plan: 1.Chronic kidney disease, around his baseline. Continue current treatment. We will monitor the pat ient. The patient cleared from the Renal standpoint for discharge planning to follow up in the [facility] in 2-3 weeks. 2.Hypertension, controlled, optimal. Continue current medication. 3.COVID pneumonia as by primary. 4.Hyperkalemia, status post treatment, recovered, resolved. TIANA Voice ID: [id number] Report ID: [id number]
--- NOTE | 2021-04-16 18:14 | EKG ---
Test Date: 2021-04-14 Test Time: 19:22:12 Development And Housing Director: JEWEL MEASUREMENT RESULTS: Intervals: Rate: 91 MA: 206 QRSD: 122 QT: 394 QTc: 484 [place]: P: 51 MA: 206 QRS: -35 T: 43 INTERPRETIVE STATEMENTS: Normal sinus rhythm with sinus arrhythmia Left axis deviation Right bundle branch block Voltage criteria for left ventricular hypertrophy Possible Anteroseptal infarct, age undetermined Abnormal ECG Compared to ECG 04/26/2018 14:22:19 Left-axis deviation now present Myocardial infarct finding now present Sinus bradycardia no longer present Electronically Signed On 04-16-21 18:06:25 CDT by Negro Alejandro
--- NOTE | 2021-04-17 15:04 | CON ---
Date of Consultation: 04/15/2021 Admitted on 04/14/[address] Nova. Reason For Consultation: Possible left ventricular aneurysm. History Of Present Illness: Mr. Gray is an 85-year-old male who came into the emergency room to the hospital mainly complaining of constipation. He does have some issue with dementia. He did hav e some chest pain that he describes as some heaviness. Apparently, an abdominal chest and pelvis CT showed trace pleural effusion, mild aneurysmal dilatation of the ascending thoracic aorta and probabl e left ventricular apical aneurysm. We will consult as in that regard. Allergies: NONE. Medications: At home include Aricept, Tessalon , Florinef, zinc, and prednisone. Family History: Noncontributory. Review of Systems: Negative. Social History: Negative. Family History: Negative. Physical Examination: Vital Signs: Stable. He was afebrile. Heart rate was 54, sinus rhythm, respirations 19. HEENT: Negative. Neck: Supple. No bruit. cyanosis or edema. Diagnostic Data: COVID positive. Impression And Plan: Possible left apical mildly dilated thoracic aorta echocardiogram wa s done and interpreted showed an ejection . No wall motion abnormalities, mild left ____ does not need any further cardiac workup at this point. I will continue his treatment for his C OVID. He does have orthostatic aspirin antibiotics, iron and zinc no further c ardiac rhythm . NB/MODL Voice ID: [id number] Report ID: [id number]
[2021-04-20 04:04] LABS: Albumin, (SPE) 3.4 g/dL (3.8-4.8); Alpha-1-Globulins 0.5 g/dL (0.2-0.3); Alpha-2-Globulins 0.9 g/dL (0.5-0.9); Gamma Globulins 1.2 g/dL (0.8-1.7); INTERPRETATION REPORT
[2021-04-22 05:06] VITALS: BP 131/58; TEMP 97.4
--- NOTE | 2021-04-22 05:09 | P.DS ---
Discharge Date: 04/16/21 Primary Care Provider: Dr. Blake Disposition: ROUTINE DISCHARGE Discharge Condition: GOOD Reason for Admission: COVID-19 pneumonia, chest pain - Problems (1) Pneumonia due to COVID-19 virus Status: Acute Brief History of Present Illness: 85-year-old male with history of hypertension, dementia presents emergency department for chest pain, constipation. Patient also tested positive for Covid on 04/05/2021 and received monoclonal antibodies on 04/06/2021. Patient was initially hypotensive with blood pressure 182/103 and 88% on room air. 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 Case was discussed with cardiology who suggest that these findings are likely chronic in nature and can be evaluated echocardiogram in the morning. Patient treated with IV steroids, supplemental oxygen in the emergency department, ED provider wishes to admit for further evaluation and management of COVID-19 associated pneumonia. Patient's family at bedside, plan discussed, are amendable. Hospital Course: Patient has done well during hospital stay. Patient is on room air and satting 96%. Patient is clinically doing better. At this time, patient is stable for discharge home. Vital Signs/Physical Exam: Temp Pulse Resp BP Pulse Ox 97.4 F 67 20 131/58 L 95 04/22/21 05:06 04/22/21 05:06 04/22/21 05:06 04/22/21 05:06 04/22/21 05:06 General: Alert, In no apparent distress, Oriented x3 Laboratory Data at Discharge: WBC 8.30 K/uL (4.3-10.9) 04/16/21 03:18 Hgb 12.0 g/dL (13.6-17.9) L 04/16/21 03:18 Hct 36.2 % (39.6-49.0) L 04/16/21 03:18 Plt Count 152 K/uL (152-406) 04/16/21 03:18 PT 12.8 SECONDS (9.5-12.5) H 04/14/21 19:33 INR 1.11 04/14/21 19:33 Sodium 140 mmol/L (136-145) 04/16/21 03:18 Potassium 4.4 mmol/L (3.5-5.1) 04/16/21 03:18 BUN 38 mg/dL (7-18) H 04/16/21 03:18 Creatinine 1.71 mg/dL (0.55-1.3) H 04/16/21 03:18 Glucose 153 mg/dL (74-106) H 04/16/21 03:18 Uric Acid 7.1 mg/dL (3.5-7.2) 04/16/21 03:18 Magnesium 2.1 mg/dL (1.8-2.4) 04/16/21 03:18 Total Bilirubin 0.3 mg/dL (0.2-1.0) 04/16/21 03:18 AST 18 U/L (15-37) 04/16/21 03:18 ALT 21 U/L (12-78) 04/16/21 03:18 Alkaline Phosphatase 68 U/L (45-117) 04/16/21 03:18 Troponin I < 0.02 ng/mL (0.0-0.045) 04/15/21 10:36 Triglycerides 53 mg/dL (<150) 04/15/21 03:23 Cholesterol 134 mg/dL (<200) 04/15/21 03:23 HDL Cholesterol 49 mg/dL (40-60) 04/15/21 03:23 Cholesterol/HDL Ratio 2.73 04/15/21 03:23 Lipase 172 U/L (73-393) 04/14/21 19:33 Home Medications: Donepezil [Aricept*] 5 mg PO BEDTIME 04/15/21 Benzonatate [Tessalon Perle*] 100 mg PO TID PRN #30 cap 04/16/21 Cholecalciferol (Vitamin D3) [Vitamin D 1000 Iu Tab*] 4,000 unit PO DAILY #90 tab 04/16/21 Fludrocortisone [Florinef *] 0.1 mg PO DAILY #30 tab 04/16/21 Zinc Sulfate [Zinc Sulfate*] 220 mg PO DAILY #30 cap 04/16/21 predniSONE [Prednisone*] 20 mg PO BID #11 tab 04/16/21 New Medications: Fludrocortisone [Florinef *] 0.1 mg PO DAILY #30 tab predniSONE [Prednisone*] 20 mg PO BID #11 tab Benzonatate [Tessalon Perle*] 100 mg PO TID PRN #30 cap PRN Reason: Cough Cholecalciferol (Vitamin D3) [Vitamin D 1000 Iu Tab*] 4,000 unit PO DAILY #90 tab Zinc Sulfate [Zinc Sulfate*] 220 mg PO DAILY #30 cap Physician Discharge Instructions: OK TO DC IV AND DC HOME FOLLOW-UP WITH PRIMARY CARE PROVIDER IN 1-2 WEEKS FOLLOW-UP WITH Pulmonary and Nephrology IN 1-2 WEEKS RETURN TO THE ER IF symptoms worsens CALL or TEXT DR. PLATA AT [phone] IF ANY QUESTIONS REGARDING HOSPITAL STAY. PLEASE CALL THE FLOOR AT [phone] IF ANY MEDICATION OR NURSING QUESTIONS. 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
== END 2021-04-16 12:50 | disposition home or self-care (01) | DRG 177 ==
LOC: ER 18:49 → ERHOLD 22:10 → 4TH 22:54
PROVIDERS: ADMIT Hospitalist; ATTEND Hospitalist
DX: U07.1 COVID-19 (principal); J12.82 Pneumonia due to coronavirus disease 2019; J96.01 Acute respiratory failure with hypoxia; N17.9 Acute kidney failure, unspecified; I25.3 Aneurysm of heart; I12.9 Hypertensive chronic kidney disease with stage 1 through stage 4 chronic kidney disease, or unspecified chronic kidney disease; N18.32 Chronic kidney disease, stage 3b; F03.90 Unspecified dementia, unspecified severity, without behavioral disturbance, psychotic disturbance, mood disturbance, and anxiety; R07.9 Chest pain, unspecified; E87.5 Hyperkalemia; R80.9 Proteinuria, unspecified; I71.2 Thoracic aortic aneurysm, without rupture
CPT/HCPCS: 36415; 71045; 71250; 74176; 80048; 80053; 80061; 80076; 81003; 82550; 82728; 83605; 83690; 83735; 83880; 84145; 84165; 84439; 84443; 84484; 84550; 85025; 85379; 85610; 86140; 86334; 87040; 87804; 93005; 93306; 94760; 96365; 96367; 96375; 99285; J0456; J1170; J1644; J1940; J2270; J2405; J2920; J7030; J7050; U0003

== ENCOUNTER 2021-07-17 20:12 | Emergency (ER) | payer OTHER ==
[2012-01-17 11:05] VITALS: BP 136/64
--- OUTSIDE RECORDS SUMMARY | 2021-07-17 20:15 | XMS REPORT | Continuity of Care Document ---
:1935 Author Organization [facility] t Address [address] [place] [address] Dr. Sharma. [address] [place] [address] Care Team Providers Name Role Phone Joleen HERNANDEZ Primary Care Physician Therapy, Covid Infusion Attending Clinician Unavailable Misael HERNANDEZ, A Attending Clinician Tamica DOUGLAS Attending Clinician Unavailable Doctor Unassigned, Name Attending Clinician Unavailable Po, Care Clinic Attending Clinician Unavailable Joleen HERNANDEZ Attending Clinician Payers Payer Name Policy Type Policy Number Effective Date Expiration Date S our [employer] MEDICARE [id number] 2013 00:00:00 Problems Condition Condition Condition Status Onset Resolution Last Treating Co mments Source Name Details Category Date Date Treatment Clinician Date Fever in Fever in Disease Active Unive rs adult adult 5-28 ity of 00:00: [place] 00 [facility] Allergies, Adverse Reactions, Alerts Allergy Allergy Status Severity Reaction(s) Onset Inactive Treating Comm ents Source Name Type Date Date Clinician NO KNOWN Drug Active Univers ALLERGIE Class ity of [facility] Social History Social Habit Start Date Stop Date Quantity Comments Source Exposure to Not sure [facility] SARS-CoV-2 (event) Medica l Branch Tobacco use and 2019-12-08 2019-12-08 Never used [facility] exposure 00:00:00 00:00:00 [facility] Sex Assigned At [birth year] [facility] 00:00:00 00:00:00 Medical [place] Smoking Status Start Date Stop Date Source Never smoker [facility] Medications Ordered Filled Start Stop Current Ordering Indication Dosage Frequency Signature Comments Components Source Medication Medication Date Date Medication? Clinician (SIG) Name Name jacquieb 2020- No [id number] 1200mg 1,200 mg, Univers -imdevimab 04-06 Subcutaneo it y of (REGEN-COV 14:45: 13:09 [place], ONCE, [place] (EUA[place] 00 :00 1 dose, On Medical injection Sat Branch 1,200 mg 04/06/21 at 0945, Routine amLODIPine 0 Yes amlodipine U nivers 5 mg tablet 5-28 besylate 5 it y of 19:56: mg tab[address] azithromyci 2019-0 Yes azithromyc Univers n 250 mg 5-28 in 250 mg ity of tablet 19:56: tab[address] fluticasone 2019- Yes fluticason Univers propionate 5-28 e ity of 50 19:56: propionate [place] mcg/actuati 07 50 mcg/act Me dical on nasal susp Branch spray traMADol 50 2019-0 Yes tramadol Un mitchell mg tablet 5-28 hcl 50 mg ity o f 19:56: tab[address] amLODIPine 2019-0 Yes amlodipine U nivers 5 mg tablet 5-28 besylate 5 it y of 14:56: mg tab[address] azithromyci 2019-0 Yes azithromyc Univers n 250 mg 5-28 in 250 mg ity of tablet 14:56: tab[address] fluticasone 2019-0 Yes fluticason Univers propionate 5-28 e ity of 50 14:56: propionate [place] mcg/actuati 07 50 mcg/act Me dical on nasal susp Branch spray traMADol 50 2020-0 Yes tramadol Un [place] mg tablet 5-28 hcl 50 mg ity o f 14:56: tab[address] amLODIPine 2019-0 Yes amlodipine U nivers 5 mg tablet 5-28 besylate 5 it y of 14:56: mg tab[address] azithromyci 2019-0 Yes azithromyc Univers n 250 mg 5-28 in 250 mg ity of tablet 14:56: tab[address] fluticasone 2019-0 Yes fluticason Univers propionate 5-28 e ity of 50 14:56: propionate [place] mcg/actuati 07 50 mcg/act Me dical on nasal susp Branch spray traMADol 50 2020-0 Yes tramadol Un [place] mg tablet 5-28 hcl 50 mg ity o f 14:56: tabs 07 Medical Branch acetaminoph 2020-0 Yes [id number] 500mg Take 1 Univers en 500 mg 5-28 tablet by ity o f tablet 00:00: mouth [place] 00 every 6 Medical (six) Branch hours as needed for Pain. acetaminoph 2020-0 Yes [id number] 500mg Take 1 Univers en 500 mg 5-28 tablet by ity o f tablet 00:00: mouth [place] 00 every 6 Medical (six) Branch hours as needed for Pain. acetaminoph 2020-0 Yes [id number] 500mg Take 1 Univers en 500 mg 5-28 tablet by ity o f tablet 00:00: mouth [place] 00 every 6 Medical (six) Branch hours as needed for Pain. losartan 50 2020-0 Yes Univer s mg tablet - ity of 00:00: [place] [facility] losartan 50 2020-0 Yes Univer s mg tablet -09 ity of 00:00: [place] 00 Medical Branch losartan 50 2020-0 Yes Univer s mg tablet -09 ity of 00:00: [place] [address] Medical [place] Vital Signs Vital Name Observation Time Observation Value Comments Source Systolic blood 2021-04-06 13:54:00 120 mm[Hg] Univer sity of pressure [facility] Diastolic blood 2021-04-06 13:54:00 67 mm[Hg] Unive rsity of pressure [facility] Heart rate 2021-04-06 13:54:00 91 /min [facility] Body temperature 2021-04-06 13:54:00 36.33 Sabrina [facility] Respiratory rate 2021-04-06 13:54:00 18 /min [facility] Oxygen saturation in 2021-04-06 13:54:00 93 /min [facility] Arterial blood by [facility] Pulse oximetry Branch Body height 2021-04-06 13:08:00 185.4 cm [facility] Body weight 2021-04-06 13:08:00 95.255 kg [facility] BMI 2021-04-06 13:08:00 27.71 kg/m2 Universi ty of [place] [facility] Systolic blood 2019-12-08 19:59:00 175 mm[Hg] Univer sity of pressure [place] [facility] Diastolic blood 2019-12-08 19:59:00 75 mm[Hg] Unive rsity of pressure [facility] Branch Body temperature 2019-12-08 19:59:00 36.89 Sabrina Univ ersity of [facility] Branch Heart rate 2019-12-08 19:55:00 68 /min Universi ty of [place] [facility] Respiratory rate 2019-12-08 19:55:00 17 /min Univ ersity of [facility] Branch Body height 2019-12-08 19:55:00 185.4 cm Universi ty [facility] [place] [facility] Body weight 2019-12-08 19:55:00 90.719 kg [facility]i ty [facility] [place] [facility] BMI 2019-12-08 19:55:00 26.39 kg/m2 Universi ty of [facility] Branch Oxygen saturation in 2019-12-08 19:55:00 96 /min University of Arterial blood by [facility] Pulse oximetry Branch Systolic blood 2019-12-08 19:59:00 175 mm[Hg] Univer sity of pressure [facility] Branch Diastolic blood 2019-12-08 19:59:00 75 mm[Hg] Unive rsity of pressure [facility] Branch Body temperature 2019-12-08 19:59:00 36.89 Sabrina Univ ersity of [facility] Branch Heart rate 2019-12-08 19:55:00 68 /min Universi ty of [facility] Branch Respiratory rate 2019-12-08 19:55:00 17 /min Univ ersity of [facility] Branch Body height 2019-12-08 19:55:00 185.4 cm [facility] [place] [facility] Body weight 2019-12-08 19:55:00 90.719 kg Universi ty [facility] [place] [facility] BMI 2019-12-08 19:55:00 26.39 kg/m2 [facility]i ty [facility] [place] [facility] Oxygen saturation in 2019-12-08 19:55:00 96 /min University of Arterial blood by [facility] Pulse oximetry Branch Procedures Procedure Date / Time Performed Performing Clinician Yola august [id number] CONSENT 2021-04-06 05:01:00 Doctor Unassigned, No [facility] Branch Encounters Start End Encounter Admission Attending Care Care Encounter Source Date/Time Date/Time Type Type Clinicians Facility Department ID 2021-04-06 2021-04-06 Nurse Therapy, Adc Covid Infusion [facility] [id number] [id number] Univers 07:32:59 08:32:59 Visit DouglasDaron huberjesus Rocha [id number] ity [id number] [phone] Med [place] [id number] [place] 2021-04-06 2021-04-06 Outpatient R [facility] [id number] Univers 08:00:00 08:00:00 [id number] ity of [facility] 2021-04-06 2021-04-06 Outpatient R MISAEL [facility] [id number] Univers 08:00:00 08:00:00 NOLAN ity [facility] [place] 2021-04-06 2021-04-06 Orders Doctor MAUREEN [id number] Univers 00:00:00 00:00:00 Only Unassigned, AWILDA [id number] ity of [place] [facility] [id number] Jesus Alberto as [phone] [address] 2019-12-08 2019-12-08 Urgent Pob1, Acute [facility] [id number] 14:48:10 15:32:34 [facility] [id number] [place] [id number] Professio [phone] [place] [address] [address] 2019-12-08 2019-12-08 Urgent Pob1, Acute Care [facility] [id number]. [id number] Univers 14:48:10 15:32:34 Care [facility] [id number] ity of [place] [id number] Jesus Alberto as Professio [phone] Wi dical [address] 2019-12-08 2019-12-08 Outpatient R [facility] [id number] Univers 15:20:00 15:20:00 [id number] ity [facility] [place] 2019-12-08 2019-12-08 Outpatient R [facility] [id number] Univers 15:20:00 15:20:00 [facility] Results This patient has no known results.
--- NOTE | 2021-07-17 21:20 | ER ---
Nurse's Notes [facility] Name: Nikolai Gray Age: 85 yrs Sex: Male : 1935 Arrival Date: 07/17/2021 Time: 20:17 Bed Waiting Private MD: Diagnosis: ED Course: 07/17 20:17 Patient arrived in ED. kc5 Administered Medications: No medications were administered Outcome: 21:20 Patient left the ED. ld1 Signatures: Katrin Vallecillo RN RN ld1 Silvina Padgett kc5
== END 2021-07-17 21:20 | disposition left against medical advice (07) ==
LOC: ER 20:12
DX: Z02.9 Encounter for administrative examinations, unspecified (principal)

== ENCOUNTER 2021-07-18 06:56 | Observation (INO) | payer OTHER ==
--- OUTSIDE RECORDS SUMMARY | 2021-07-18 06:59 | XMS REPORT | Continuity of Care Document ---
:1935 Author Organization [facility] t Address [address] [place] [address] Dr. Sharma. [address] [place] [address] Care Team Providers Name Role Phone Joleen HERNANDEZ Primary Care Physician Therapy, Covid Infusion Attending Clinician Unavailable Misael HERNANDEZ, A Attending Clinician Tamica DOUGLAS Attending Clinician Unavailable Doctor Unassigned, Name Attending Clinician Unavailable Po, Care Clinic Attending Clinician Unavailable Joleen HERNANDEZ Attending Clinician Payers Payer Name Policy Type Policy Number Effective Date Expiration Date S our [employer] MEDICARE [id number] 2013 00:00:00 Problems Condition Condition Condition Status Onset Resolution Last Treating Co mments Source Name Details Category Date Date Treatment Clinician Date Fever in Fever in Disease Active Unive rs adult adult 5-28 ity of 00:00: [place] 00 [facility] Allergies, Adverse Reactions, Alerts Allergy Allergy Status Severity Reaction(s) Onset Inactive Treating Comm ents Source Name Type Date Date Clinician NO KNOWN Drug Active Univers ALLERGIE Class ity of [facility] Social History Social Habit Start Date Stop Date Quantity Comments Source Exposure to Not sure [facility] SARS-CoV-2 (event) Medica l Branch Tobacco use and 2019-12-08 2019-12-08 Never used [facility] exposure 00:00:00 00:00:00 [facility] Sex Assigned At [birth year] [facility] 00:00:00 00:00:00 Medical [place] Smoking Status Start Date Stop Date Source Never smoker [facility] Medications Ordered Filled Start Stop Current Ordering Indication Dosage Frequency Signature Comments Components Source Medication Medication Date Date Medication? Clinician (SIG) Name Name jacquieb 2020- No [id number] 1200mg 1,200 mg, Univers -imdevimab 04-06 Subcutaneo it y of (REGEN-COV 14:45: 13:09 us, ONCE, [place] (EUA)) 00 :00 1 dose, On Medical injection Sat Branch 1,200 mg 04/06/21 at 0945, Routine amLODIPine 0 Yes amlodipine U nivers 5 mg tablet 5-28 besylate 5 it y of 19:56: mg tab[address] azithromyci 2019-0 Yes azithromyc Univers n 250 mg 5-28 in 250 mg ity of tablet 19:56: tab[address] fluticasone 2019- Yes fluticason Univers propionate 5-28 e ity of 50 19:56: propionate [place] mcg/actuati 07 50 mcg/act Me dical on nasal susp Branch spray traMADol 50 2019-0 Yes tramadol Un [place] mg tablet 5-28 hcl 50 mg ity o f 19:56: tab[address] amLODIPine 2019-0 Yes amlodipine U nivers 5 mg tablet 5-28 besylate 5 it y of 14:56: mg tab[address] azithromyci 2019-0 Yes azithromyc Univers n 250 mg 5-28 in 250 mg ity of tablet 14:56: tab[address] fluticasone 2019-0 Yes fluticason Univers propionate 5-28 e ity of 50 14:56: propionate [place] mcg/actuati 07 50 mcg/act Me dical on nasal susp Branch spray traMADol 50 2020-0 Yes tramadol Un [place] mg tablet 5-28 hcl 50 mg ity o f 14:56: tab[address] amLODIPine 2019-0 Yes amlodipine U nivers 5 mg tablet 5-28 besylate 5 it y of 14:56: mg tab[address] azithromyci 2019-0 Yes azithromyc Univers n 250 mg 5-28 in 250 mg ity of tablet 14:56: tab[address] fluticasone 2019-0 Yes fluticason Univers propionate 5-28 e ity of 50 14:56: propionate [place] mcg/actuati 07 50 mcg/act Me dical on nasal susp Branch spray traMADol 50 2020-0 Yes tramadol Un [place] mg tablet 5-28 hcl 50 mg ity o f 14:56: tabs 07 Medical Branch acetaminoph 2020-0 Yes [id number] 500mg Take 1 Univers en 500 mg 5-28 tablet by ity o f tablet 00:00: mouth [place] 00 every 6 Medical (six) Branch hours as needed for Pain. acetaminoph 2020-0 Yes [id number] 500mg Take 1 Univers en 500 mg 5-28 tablet by ity o f tablet 00:00: mouth [place] 00 every 6 Medical (six) Branch hours as needed for Pain. acetaminoph 2020-0 Yes [id number] 500mg Take 1 Univers en 500 mg [...] s mg tablet -09 ity of 00:00: [place] [address] Medical [place] Vital Signs Vital Name Observation Time Observation Value Comments Source Systolic blood 2021-04-06 13:54:00 120 mm[Hg] Univer sity of pressure [facility] Diastolic blood 2021-04-06 13:54:00 67 mm[Hg] Unive rsity of pressure [facility] Heart rate 2021-04-06 13:54:00 91 /min [facility] Body temperature 2021-04-06 13:54:00 36.33 Sabrina [facility] Respiratory rate 2021-04-06 13:54:00 18 /min [facility] Oxygen saturation in 2021-04-06 13:54:00 93 /min [facility] Arterial blood by [facility] Pulse oximetry Branch Body height 2021-04-06 13:08:00 185.4 cm [facility] Body weight 2021-04-06 13:08:00 95.255 kg [facility] BMI 2021-04-06 13:08:00 27.71 kg/m2 [facility] ty [facility] [place] [facility] Systolic blood 2019-12-08 19:59:00 175 mm[Hg] Univer sity of pressure [place] [facility] Diastolic blood 2019-12-08 19:59:00 75 mm[Hg] Unive rsity of pressure [facility] Branch Body temperature 2019-12-08 19:59:00 36.89 Sabrina Univ ersity of [facility] Branch Heart rate 2019-12-08 19:55:00 68 /min Universi ty [facility] [place] [facility] Respiratory rate 2019-12-08 19:55:00 17 /min Univ ersity of [facility] Branch Body height 2019-12-08 19:55:00 185.4 cm [facility]i ty [facility] [place] [facility] Body weight 2019-12-08 19:55:00 90.719 kg [facility] [place] [facility] BMI 2019-12-08 19:55:00 26.39 kg/m2 Universi ty of [facility] Branch Oxygen saturation in 2019-12-08 19:55:00 96 /min University of Arterial blood by [facility] Pulse oximetry Branch Systolic blood 2019-12-08 19:59:00 175 mm[Hg] Univer sity of pressure [facility] Branch Diastolic blood 2019-12-08 19:59:00 75 mm[Hg] Unive rsity of pressure [facility] Branch Body temperature 2019-12-08 19:59:00 36.89 Sabrina Univ ersity of [facility] Branch Heart rate 2019-12-08 19:55:00 68 /min Universi ty of [facility] Branch Respiratory rate 2019-12-08 19:55:00 17 /min Univ ersity of [facility] Branch Body height 2019-12-08 19:55:00 185.4 cm [facility]i ty [facility] [place] [facility] Body weight 2019-12-08 19:55:00 90.719 kg [facility]i ty [facility] [place] [facility] BMI 2019-12-08 19:55:00 26.39 kg/m2 [facility]i ty [facility] [place] [facility] Oxygen saturation in 2019-12-08 19:55:00 96 /min University of Arterial blood by [facility] Pulse oximetry Branch Procedures Procedure Date / Time Performed Performing Clinician Yola august [id number] CONSENT 2021-04-06 05:01:00 Doctor Unassigned, No [facility] Branch Encounters Start End Encounter Admission Attending Care Care Encounter Source Date/Time Date/Time Type Type Clinicians Facility Department ID 2021-04-06 2021-04-06 Nurse Therapy, Adc Covid Infusion [email or web address] 1.2.840.114 [id number] Univers 07:32:59 08:32:59 Visit DouglasDaron huberjesus Rocha [id number] ity [id number] [id number] Med [place] [address] [place] 2021-04-06 2021-04-06 Outpatient R [facility] [id number] Univers 08:00:00 08:00:00 [id number] ity of [facility] 2021-04-06 2021-04-06 Outpatient R MISAEL [facility] [id number] Univers 08:00:00 08:00:00 NOLAN ity [facility] 2021-04-06 2021-04-06 Orders Doctor MAUREEN [id number] [id number] Univers 00:00:00 00:00:00 Only Unassigned, AWILDA [id number] ity of [place] [facility] [id number] Jesus Alberto as [phone] [address] 2019-12-08 2019-12-08 Urgent Pob1, Acute [facility] [[email or web address]] [id number] 14:48:10 15:32:34 [facility] [id number] [place] [id number] Professio [phone] [place] [address] [address] 2019-12-08 2019-12-08 Urgent Pob1, Acute Care [facility] 1. 2.840.114 [id number] Univers 14:48:10 15:32:34 Care [facility] [id number] ity of [place] [id number] Jesus Alberto as Professio [phone] De dical [address] 2019-12-08 2019-12-08 Outpatient R [facility] [id number] Univers 15:20:00 15:20:00 [id number] ity Surgery [facility] 2019-12-08 2019-12-08 Outpatient R [facility] [id number] Univers 15:20:00 15:20:00 [facility] Results This patient has no known results.
[2021-07-18 08:41] LABS: Absolute Lymphocytes (CBC) 1.7 K/uL (0.7-4.9); Hematocrit 39.4 % (39.6-49.0); Lymphocytes % 20.9 % (15.3-44.8); MPV 7.6 fL (7.6-11.3); RBC Red Blood Cell Count 4.69 M/uL (4.33-5.43)
[2021-07-18] MEDS ORDERED: NA CHLORIDE 0.9% 1,000 ML ONE (08:42)
[2021-07-18] MEDS ORDERED: NA CHLORIDE 0.9% 0 ML ONE (08:42)
[2021-07-18] MEDS ORDERED: AZITHROMYCIN 500 MG INJ IVPB ONE (08:42)
[2021-07-18 08:44] LABS: Protime INR 1.12
[2021-07-18] MEDS ORDERED: NA CHLORIDE 0.9% 250 ML ONE (08:45)
[2021-07-18 08:54] LABS: Potassium 4.4 mmol/L (3.5-5.1); Sodium Level 137 mmol/L (136-145)
[2021-07-18 09:05] LABS: ALT/SGPT 17 U/L (12-78); AST/SGOT 14 U/L (15-37); Albumin 3.6 g/dL (3.4-5.0); Alkaline Phosphatase 75 U/L (45-117); BUN Blood Urea Nitrogen 31 mg/dL (7-18); Bicarbonate 27 mmol/L (21-32); Bilirubin Direct 0.1 mg/dL (0-0.2); Bilirubin Total 0.6 mg/dL (0.2-1.0); Glucose Level 107 mg/dL (74-106); Magnesium 2.6 mg/dL (1.8-2.4); Protein, Total 7.9 g/dL (6.4-8.2); Troponin (Emerg Dept Use Only) < 0.02 ng/mL (0.0-0.045)
[2021-07-18 09:06] LABS: NT PRO-BNP 1435 pg/mL (<450)
--- NOTE | 2021-07-18 09:39 | RAD REPORT ---
EXAM DESCRIPTION: CT - Head C Spine Mpr Wo Con - 07/18/2021 9:29 am CLINICAL HISTORY: Head and neck injury status post fall. Head and neck pain COMPARISON: None. TECHNIQUE: Computed axial tomography of the head and cervical spine was obtained. Sagittal and coronal reconstruction was performed. All CT scans are performed using dose optimization technique as appropriate and may include automated exposure control or mA/KV adjustment according to patient size. FINDINGS: Mild low density areas within periventricular, deep and subcortical white matter probably ischemic changes secondary to small vessel disease. Cerebral atrophy is present. An intracranial bleed is not seen. The ventricles are normal in caliber. An extra-axial fluid collect ion is not noted.Fluid within the visualized sinuses and mastoids is not seen A cervical fracture is not visualized. No dislocation is noted. A 10 millimeter lytic lesion left aspect of the dens IMPRESSION: No acute intracranial abnormality is seen. A cervical fracture is not visualized. If the patient continues to have symptoms to suggest intracra nial /spinal cord pathology then MRI would be recommended 10 millimeter liver lytic lesion C2 has a nonspecific appearance. Followup CT in 3 months could be o btained to assess stability. Alternatively, a bone scan could be obtained.
--- NOTE | 2021-07-18 09:52 | RAD REPORT ---
EXAM DESCRIPTION: CT - Chest For Pe Angio - 07/18/2021 9:29 am CLINICAL HISTORY: Congestion COMPARISON: April 2021 TECHNIQUE: Dynamically enhanced axial 3 mm thick images of the chest were obtained during administra tion of 75 mL Isovue 370 IV contrast. Coronal and oblique reconstruction images were generated and re viewed. Exam utilizes a protocol for optimal evaluation of pulmonary arterial tree. Maximum intensity projections 3D imaging was utilized All CT scans are performed using dose optimization technique as appropriate and may include automated exposure control or mA/KV adjustment according to patient size. FINDINGS: Small filling defects peripheral right lower lobe arteries. Ascending thoracic aorta has an AP diameter 4.3 centimeters. A pleural effusion is not seen. A pericardial effusion is not seen. Mild right lower lobe opacities. Moderate stenosis proximal left subclavian artery. IMPRESSION: Mild right lower lobe pulmonary embolus Mild right lower lobe opacities may represent pneumonia, atelectasis or infarction.
--- NOTE | 2021-07-18 10:26 | ER ---
Nurse's Notes [facility] Name: Nikolai Gray Age: 85 yrs Sex: Male : 1935 Arrival Date: 07/18/2021 Time: 07:00 Bed 13 Private MD: Diagnosis: Other pulmonary embolism without acute cor pulmonale;Other pneumonia, unspecified organism Presentation: 07/18 07:13 Chief complaint: Spouse and/or significant other states: Pt fell yesterday afternoon vg1 onto buttocks and c/o DIVINA rib and lower back pain; pt appears to have skin tears on Right forearm and Left hand. Spouse also states pt woke up this morning with a productive cough with bright red blood in sputum. Coronavirus screen: Vaccine status: Patient reports receiving the 2nd dose of the covid vaccine. Client denies travel out of the [place] in the last 14 days. Client presents with at least one sign or symptom that may indicate coronavirus-19. Standard/surgical mask placed on the client. Ebola Screen: Patient negative for fever greater than or equal to 101.5 degrees Fahrenheit, and additional compatible Ebola Virus Disease symptoms. Initial Sepsis Screen: Does the patient meet any 2 criteria? No. Patient's initial sepsis screen is negative. Does the patient have a suspected source of infection? No. Patient's initial sepsis screen is negative. Risk Assessment: Do you want to hurt yourself or someone else? Patient reports no desire to harm self or others. Onset of symptoms was July 17, 2021. 07:13 Method Of Arrival: Wheelchair vg1 07:13 Acuity: ISAC 3 vg1 Triage Assessment: 07:16 General: Appears in no apparent distress. comfortable, Behavior is calm, cooperative. vg1 Pain: Complains of pain in DIVINA ribs and lower back. Respiratory: Reports cough that is productive, Airway is patent Respiratory effort is even, unlabored, Sputum is bloody Onset: The symptoms/episode began/occurred this morning, the patient has mild shortness of breath. Historical: - Allergies: 07:16 No Known Allergies; vg1 - Home Meds: 07:16 amlodipine 5 mg tab 1 tab once daily [Active]; aspirin 81 mg Oral chew 1 tab once daily vg1 [Active]; losartan 50 mg Oral tab 1 tab once daily [Active]; - PMHx: 07:16 Hypertension; Alzheimer's disease; vg1 - Immunization history:: Client reports receiving the 2nd dose of the Covid vaccine. - Social history:: Smoking status: Patient denies any tobacco usage or history of. Patient/guardian denies using alcohol, street drugs, The patient lives with family. - Family history:: not pertinent. Screenin:20 Abuse screen: Denies threats or abuse. Denies injuries from another. Nutritional eo2 screening: No deficits noted. Tuberculosis screening: Possible symptoms: recent bloody sputum. Fall Risk Fall in past 12 months (25 points). IV access (20 points). Assessment: 08:20 General: Appears in no apparent distress. Behavior is calm, cooperative. Neuro: Level eo2 of Consciousness is awake, alert, obeys commands, Oriented to person, place, Reports per , pt fell yesterday, unable to sleep all night due to pain in b/l ribs/back, states pt did not have LOC, did not hit his head. Pt presently alert to self, , disoriented to time, and mildly to situation. . Denies dizziness, headache. Cardiovascular: No deficits noted. Denies chest pain, shortness of breath, Capillary refill < 3 seconds Patient's skin is warm and dry. Rhythm is sinus rhythm. Respiratory: Airway is patent Breath sounds are diminished bilaterally. Denies shortness of breath Parent/caregiver reports the patient having cough that is pain with cough states pt began coughing blood this morning. 08:20 Respiratory: Airway is patent. GI: No deficits noted. Derm: Parent/caregiver reports eo2 the patient having right arm skin tears sustained from fall yesterday. Musculoskeletal: Parent/caregiver report the patient having pain in b/l ribs, and back, states pt unable to sleep all night due to pain. 10:37 Reassessment: In to medicate pt with dilaudid, zofran, and lovenox as ordered, Dr. tristin Vences in room with pt, states not to admin medications at this time. All meds already drawn up, wasted afterwards with rn hemodialysis charge. Provider spoke with pt's and pt about plan, verbalized understanding. Comfort measures met, will continue to monitor. 11:33 Reassessment: Pt's reports pt is restless due to pain, meditech checked, no med eo2 orders placed yet, pt's informed, will ask Dr. Plaza for pain medication. Right forearm abrasions/skin tears cleansed with normal saline, triple abx ointment placed, covered with bandage. Pt in NAD, will continue to monitor. Vital Signs: 07:13 BP 137 / 64; Pulse 75; Resp 16; Temp 98.2(O); Pulse Ox 98% ; Weight 86.18 kg; Height 6 vg1 ft. 0 in. (182.88 cm); Pain 5/10; 08:00 BP 147 / 70; Pulse 70; Resp 20; Pulse Ox 99% ; Pain 5/10; eo2 08:45 BP 147 / 69; Pulse 21; Resp 21; Pulse Ox 99% ; eo2 11:33 BP 146 / 72; Pulse 79; Resp 17; Pulse Ox 99% ; Pain 7/10; eo2 13:15 BP 143 / 67; Pulse 74; Resp 20; Pulse Ox 99% ; Pain 6/10; eo2 07:13 Body Mass Index 25.77 (86.18 kg, 182.88 cm) vg1 Vitals: 08:20 Cardiac Rhythm Assessment Regular Sinus rhythm. eo2 ED Course: 07:00 Patient arrived in ED. wm 07:13 Bhavani Plaza MD is Attending Physician. ma2 07:16 Triage completed. vg1 07:16 Arm band placed on. vg1 07:32 Evelyn Adhikari, DARIAN is Primary Nurse. eo2 08:20 Patient has correct armband on for positive identification. bread icer on. Pulse eo2 ox on. NIBP on. Door closed. Noise minimized. Warm blanket given. 08:20 No provider procedures requiring assistance completed. Inserted saline lock: 20 gauge eo2 in right antecubital area, using aseptic technique. Blood collected. 08:56 Blood Culture Adult (2) Sent. eo2 08:57 SARS-COV-2 RT PCR (Document "Date of Onset" if Symptomatic) Sent. eo2 09:29 CT Chest For PE Angio In Process Unspecified. EDMS 09:29 CT Head C Spine In Process Unspecified. EDMS 10:25 Esequiel Vences DO is Hospitalizing Provider. ma2 13:15 Report given to Adri FARMER. eo2 13:15 Patient admitted, IV remains in place. eo2 Administered Medications: 08:45 Drug: NS 0.9% 1000 ml Route: IV; Rate: 1 bolus; Site: right antecubital; eo2 09:45 Follow up: Response: No adverse reaction; IV Status: Completed infusion; IV Intake: eo2 1000ml 08:45 Drug: AZITHromycin 500 mg Route: IVPB; Infused Over: 1 hrs; Site: right antecubital; eo2 09:45 Follow up: Response: No adverse reaction; IV Status: Completed infusion; IV Intake: eo2 250ml 10:35 CANCELLED (Duplicate Order): Lovenox (enoxaparin) 80 mg Sub-Q once ma2 10:35 CANCELLED (Patient ): Dilaudid (HYDROmorphone) 1 mg IVP once; RASS on ADMIN: ma2 Combtv4, Very Agttd3, Agttd2, Rstlss1, AlertClm0, Drwsy-1, Lt Sdtn-2, Mod Sdtn-3, Dp Sdtn-4, UnArsble-5 10:35 CANCELLED (Duplicate Order): Zofran (Ondansetron) 2 mg IVP once; over 2 minutes ma2 Intake: 09:45 IV: 250ml; Total: 250ml. eo2 09:45 IV: 1000ml; Total: 1250ml. eo2 Outcome: 10:25 Decision to Hospitalize by Provider. ma2 13:26 Patient left the ED. 5 13:29 Admitted to Med/surg family with patient. eo2 13:29 Condition: stable 13:29 Instructed on the need for admit. Signatures: Dispatcher [employer] Eun Cortez Bhavani Munroe MD MD ma2 Shanell Salomon, RN RN vg1 Sandra Kelly Eunice, RN RN eo2
--- NOTE | 2021-07-18 10:26 | EDPHYS ---
Physician Documentation [facility] Name: Nikolai Gray Age: 85 yrs Sex: Male : 1935 Arrival Date: 07/18/2021 Time: 07:00 Bed 13 Private MD: ED Physician Bhavani Plaza HPI: 07/18 07:22 This 85 yrs old Male presents to ER via Wheelchair with complaints of Productive Cough ma2 - Blood. 07:23 This 85 yrs old Male presents to ER via Wheelchair with complaints of Productive Cough ma2 - Blood. 07:23 Onset: The symptoms/episode began/occurred gradually, 3 day(s) ago. Severity of ma2 symptoms: At their worst the symptoms were mild, in the emergency department the symptoms are unchanged. Associated signs and symptoms: Pertinent negatives: fever, rhinorrhea, vomiting. The patient has not experienced similar symptoms in the past. Patient lost balance, fell yesterday, here with headache. No neck pain, also have cough productive with hemoptysis. No hematemesis, does not take blood thinners.. Historical: - Allergies: 07:16 No Known Allergies; vg1 - Home Meds: 07:16 amlodipine 5 mg tab 1 tab once daily [Active]; aspirin 81 mg Oral chew 1 tab once daily vg1 [Active]; losartan 50 mg Oral tab 1 tab once daily [Active]; - PMHx: 07:16 Hypertension; Alzheimer's disease; vg1 - Immunization history:: Client reports receiving the 2nd dose of the Covid vaccine. - Social history:: Smoking status: Patient denies any tobacco usage or history of. Patient/guardian denies using alcohol, street drugs, The patient lives with family. - Family history:: not pertinent. ROS: 07:23 Constitutional: Negative for fever, chills, and weight loss. ma2 07:23 All other systems are negative. Exam: 07:23 Constitutional: This is a well developed, well nourished patient who is awake, alert, ma2 and in no acute distress. Head/Face: Normocephalic, atraumatic. Eyes: Pupils equal round and reactive to light, extra-ocular motions intact. Lids and lashes normal. Conjunctiva and sclera are non-icteric and not injected. Cornea within normal limits. Periorbital areas with no swelling, redness, or edema. ENT: Nares patent. No nasal discharge, no septal abnormalities noted. Tympanic membranes are normal and external auditory canals are clear. Oropharynx with no redness, swelling, or masses, exudates, or evidence of obstruction, uvula midline. Mucous membranes moist. Neck: Trachea midline, no thyromegaly or masses palpated, and no cervical lymphadenopathy. Supple, full range of motion without nuchal rigidity, or vertebral point tenderness. No Meningismus. Chest/axilla: Normal chest wall appearance and motion. Nontender with no deformity. No lesions are appreciated. Cardiovascular: Regular rate and rhythm with a normal S1 and S2. No gallops, murmurs, or rubs. Normal PMI, no JVD. No pulse deficits. Respiratory: Lungs have equal breath sounds bilaterally, clear to auscultation and percussion. No rales, rhonchi or wheezes noted. No increased work of breathing, no retractions or nasal flaring. Abdomen/GI: Soft, non-tender, with normal bowel sounds. No distension or tympany. No guarding or rebound. No evidence of tenderness throughout. Skin: Warm, dry with normal turgor. Normal color with no rashes, no lesions, and no evidence of cellulitis. MS/ Extremity: Pulses equal, no cyanosis. Neurovascular intact. Full, normal range of motion. Neuro: Awake and alert, GCS 15, oriented to person, place, time, and situation. Cranial nerves II-XII grossly intact. Motor strength 5/5 in all extremities. Sensory grossly intact. Cerebellar exam normal. Normal gait. Vital Signs: 07:13 BP 137 / 64; Pulse 75; Resp 16; Temp 98.2(O); Pulse Ox 98% ; Weight 86.18 kg; Height 6 vg1 ft. 0 in. (182.88 cm); Pain 5/10; 08:00 BP 147 / 70; Pulse 70; Resp 20; Pulse Ox 99% ; Pain 5/10; eo2 08:45 BP 147 / 69; Pulse 21; Resp 21; Pulse Ox 99% ; eo2 11:33 BP 146 / 72; Pulse 79; Resp 17; Pulse Ox 99% ; Pain 7/10; eo2 13:15 BP 143 / 67; Pulse 74; Resp 20; Pulse Ox 99% ; Pain 6/10; eo2 07:13 Body Mass Index 25.77 (86.18 kg, 182.88 cm) vg1 MDM: 07:13 Patient medically screened. ma2 07:23 Differential Diagnosis: Bronchitis Upper Respiratory Infection Pharyngitis Pneumonia. ma2 10:24 Data reviewed: vital signs, nurses notes. Counseling: I had a detailed discussion with ernst the patient and/or guardian regarding: the historical points, exam findings, and any diagnostic results supporting the discharge/admit diagnosis, the presence of at least one elevated blood pressure reading (>120/80) during this emergency department visit, the need for outpatient follow up. Response to treatment: the patient's symptoms have markedly improved after treatment. 07/18 07:22 Order name: Basic Metabolic Panel; Complete Time: 10:02 fl2 07/18 07:22 Order name: CBC with Diff; Complete Time: 10:02 fl2 07/18 07:22 Order name: LFT's; Complete Time: 10:02 fl2 07/18 07:22 Order name: Magnesium; Complete Time: 10:02 fl2 07/18 07:22 Order name: NT PRO-BNP; Complete Time: 10:02 fl2 07/18 07:22 Order name: PT-INR; Complete Time: 10:02 ma2 07/18 07:22 Order name: Troponin (emerg Dept Use Only); Complete Time: 10:02 2 07/18 07:22 Order name: CT Chest For PE Angio; Complete Time: 10:02 fl2 07/18 07:22 Order name: SARS-COV-2 RT PCR (Document "Date of Onset" if Symptomatic); Complete Time: ma2 10:02 07/18 07:23 Order name: CT Head C Spine; Complete Time: 10:02 fl2 07/18 08:30 Order name: Blood Culture Adult (2) fl2 07/18 13:14 Order name: US; Complete Time: 13:18 EDMS 07/18 07:22 Order name: EKG; Complete Time: 07:23 ma2 07/18 07:22 Order name: Cardiac monitoring; Complete Time: 08:40 ma2 07/18 07:22 Order name: EKG - Nurse/Tech; Complete Time: 08:40 ma2 07/18 07:22 Order name: IV Saline Lock; Complete Time: 08:57 ma2 07/18 07:22 Order name: Labs collected and sent; Complete Time: 08:57 ma2 07/18 07:22 Order name: O2 Per Protocol; Complete Time: 08:57 ma2 07/18 07:22 Order name: O2 Sat Monitoring; Complete Time: 08:57 fl2 07/18 11:10 Order name: Wound Care; Complete Time: 11:36 ma2 Administered Medications: 08:45 Drug: NS 0.9% 1000 ml Route: IV; Rate: 1 bolus; Site: right antecubital; eo2 09:45 Follow up: Response: No adverse reaction; IV Status: Completed infusion; IV Intake: eo2 1000ml 08:45 Drug: AZITHromycin 500 mg Route: IVPB; Infused Over: 1 hrs; Site: right antecubital; eo2 09:45 Follow up: Response: No adverse reaction; IV Status: Completed infusion; IV Intake: eo2 250ml 10:35 CANCELLED (Duplicate Order): Lovenox (enoxaparin) 80 mg Sub-Q once ma2 10:35 CANCELLED (Patient ): Dilaudid (HYDROmorphone) 1 mg IVP once; RASS on ADMIN: ma2 Combtv4, Very Agttd3, Agttd2, Rstlss1, AlertClm0, Drwsy-1, Lt Sdtn-2, Mod Sdtn-3, Dp Sdtn-4, UnArsble-5 10:35 CANCELLED (Duplicate Order): Zofran (Ondansetron) 2 mg IVP once; over 2 minutes ma2 Disposition Summary: 07/18/21 10:25 Hospitalization Ordered Hospitalization Status: Inpatient Admission ma2 Provider: Esequiel Vences ma2 Location: Telemetry/MedSurg (Inpatient) ma2 Condition: Stable ma2 Problem: new ma2 Symptoms: are unchanged ma2 Bed/Room Type: Standard [facility] Room Assignment: [facility](07/18/21 11:43) Diagnosis - Other pulmonary embolism without acute cor pulmonale ma2 - Other pneumonia, unspecified organism ma2 Forms: - Medication Reconciliation Form ma2 - SBAR form ma2 Signatures: Dispatcher [employer] Janelle Rivas RN RN ss Bhavani Plaza MD MD ma2 Shanell Salomon RN RN [facility] Evelyn Adhikari, DARIAN RN eo2 Corrections: (The following items were deleted from the chart) 10:35 10:03 Lovenox (enoxaparin) 80 mg Sub-Q once ordered. [place] [id number] 10:35 10:04 Dilaudid (HYDROmorphone) 1 mg IVP once; RASS on ADMIN: Combtv4, Very Agttd3, ma2 Agttd2, Rstlss1, AlertClm0, Drwsy-1, Lt Sdtn-2, Mod Sdtn-3, Dp Sdtn-4, UnArsble-5 ordered. [facility] 10:35 10:04 Zofran (Ondansetron) 2 mg IVP once; over 2 minutes ordered. [place] [id number] 11:40 10:25 fl2 11:40 11:40 [facility] ss ss 11:43 11:40 ss ss
[2021-07-18] MEDS ORDERED: HYDROMORPHONE HCL 1 MG/ML INJ ONE (10:27)
[2021-07-18] MEDS ORDERED: ONDANSETRON 4 MG/2 ML VIAL ONE (10:27)
[2021-07-18] MEDS ORDERED: ENOXAPARIN 80 MG/0.8 ML SQ ONE (10:28)
--- NOTE | 2021-07-18 10:55 | P.HP ---
Certification for Inpatient Patient admitted to: Observation With expected LOS: <2 Midnights Patient will require the following post-hospital care: Other (HH/PT) Practitioner: I am a practitioner with admitting privileges, knowledge of patient current condition, hospital course, and medical plan of care. Services: Services provided to patient in accordance with Admission requirements found in Title 42 Section 412.3 of the Code of Federal Regulations Patient History Date of Service: 07/18/21 Primary Care Provider: Dr. Douglas; Cardiology-Dr. Donato; Nephrology-Dr. Marshall Reason for admission: Hemoptysis History of Present Illness: 85-year-old male with history of hypertension, dementia, chronic renal disease stage III. Patient was seen in the ER yesterday for a fall. Patient overnight had some hemoptysis. Minimal shortness of breath noted. No mention of fever. Patient with underlying dementia. Most of the history came from the . Patient also reported some pain to the right chest wall. He came to the ER for further evaluation. In the ER patient was evaluated. White count 8.3, hemoglobin 12. Platelet count 147. Sodium 137, potassium 4.4. BUN of 31, creatinine 1.6 with GFR of 39. Glucose 107. Troponin negative. Covid test negative. CT chest showed mild right lower lobe pulmonary embolism and possible pneumonia. CT head showed 10 mm liver lytic lesion and C2 abnormality. Patient admitted for further evaluation and treatment. Patient with history of Covid in April. Allergies No Known Allergies Allergy (Verified 07/24/14 17:38) Home medications list reviewed: Yes Home Medications: Donepezil [Aricept*] 5 mg PO BEDTIME 04/15/21 Benzonatate [Tessalon Perle*] 100 mg PO TID PRN #30 cap 04/16/21 Cholecalciferol (Vitamin D3) [Vitamin D 1000 Iu Tab*] 4,000 unit PO DAILY #90 tab 04/16/21 Fludrocortisone [Florinef *] 0.1 mg PO DAILY #30 tab 04/16/21 Zinc Sulfate [Zinc Sulfate*] 220 mg PO DAILY #30 cap 04/16/21 predniSONE [Prednisone*] 20 mg PO BID #11 tab 04/16/21 - Past Medical/Surgical History -: Dementia -: Hypertension -: Chronic renal disease stage III -: Left rotator cuff surgery Psychosocial/ Personal History: Patient lives at home with his . takes care of patient. - Family History Family History: Reviewed- Non-Contributory - Family History Father -: Hypertension Mother -: Hypertension - Social History Smoking Status: Never smoker Alcohol use: No CD- Drugs: No Caffeine use: No Place of Residence: Home Review of Systems General: As per HPI Eyes: Unremarkable ENT: Unremarkable Respiratory: Hemoptysis, As per HPI Cardiovascular: Unremarkable Gastrointestinal: Unremarkable Genitourinary: Unremarkable Musculoskeletal: As per HPI Integumentary: Unremarkable Neurological: Unremarkable Lymphatics: Unremarkable Physical Examination - Studies Laboratory Data (last 24 hrs) 07/18/21 08:20: PT 12.9 H, INR 1.12 07/18/21 08:20: WBC 8.30, Hgb 12.8 L, Hct 39.4 L, Plt Count 147 L 07/18/21 08:20: Sodium 137, Potassium 4.4, BUN 31 H, Creatinine 1.67 H, Glucose 107 H, Magnesium 2.6 H D, Total Bilirubin 0.6, AST 14 L, ALT 17, Alkaline Phosphatase 75 Assessment and Plan - Plan COVID: negative CT head/neck: COMPARISON: None. TECHNIQUE: Computed axial tomography of the head and cervical spine was obtained. Sagittal and coronal reconstruction was performed. All CT scans are performed using dose optimization technique as appropriate and may include automated exposure control or mA/KV adjustment according to patient size. FINDINGS: Mild low density areas within periventricular, deep and subcortical white matter probably ischemic changes secondary to small vessel disease. Cerebral atrophy is present. An intracranial bleed is not seen. The ventricles are normal in caliber. An extra-axial fluid collection is not noted.Fluid within the visualized sinuses and mastoids is not seen A cervical fracture is not visualized. No dislocation is noted. A 10 millimeter lytic lesion left aspect of the dens IMPRESSION: No acute intracranial abnormality is seen. A cervical fracture is not visualized. If the patient continues to have symptoms to suggest intracranial /spinal cord pathology then MRI would be recommended 10 millimeter liver lytic lesion C2 has a nonspecific appearance. Followup CT in 3 months could be obtained to assess stability. Alternatively, a bone scan could be obtained. CT chest: COMPARISON: April 2021 TECHNIQUE: Dynamically enhanced axial 3 mm thick images of the chest were o btained during administration of 75 mL Isovue 370 IV contrast. Coronal and oblique reconstruction images were generated and reviewed. Exam utilizes a protocol for optimal evaluation of pulmonary arterial tree. Maximum intensity projections 3D imaging was utilized All CT scans are performed using dose optimization technique as appropriate and may include automated exposure control or mA/KV adjustment according to patient size. FINDINGS: Small filling defects peripheral right lower lobe arteries. Ascending thoracic aorta has an AP diameter 4.3 centimeters. A pleural effusion is not seen. A pericardial effusion is not seen. Mild right lower lobe opacities. Moderate stenosis proximal left subclavian artery. IMPRESSION: Mild right lower lobe pulmonary embolus Mild right lower lobe opacities may represent pneumonia, atelectasis or infarction. Physical Exam: GENERAL: Patient alert and cooperative. Patient with underlying dementia. VITAL SIGNS: Reviewed HEENT: Head is normocephalic and atraumatic. Extraocular muscles are intact. Pupils are equal, round, and reactive to light and accommodation. Nares appeared normal. Mouth is well hydrated and without lesions. Mucous membranes are moist. NECK: Supple. No carotid bruits. No lymphadenopathy or thyromegaly. LUNGS: Clear to auscultation. No crackles or wheezes are heard. HEART: Regular rate and rhythm, no appreciable gallops, rubs, murmurs or extra heart sounds ABDOMEN: Soft, nontender, and nondistended. Positive bowel sounds. No hepatosplenomegaly was noted. EXTREMITIES: Without any cyanosis, clubbing, rash, lesions or peripheral edema. NEUROLOGIC: The patient is oriented to person, place and time. Strength and sensation are grossly intact. Face is symmetric. SKIN: Normal color, turgor and temperature. No ulcerations or rashes noted. Impression: Hemoptysis secondary to right lower lobe pulmonary embolism complicated with right lower lobe pneumonia Hypertension Alzheimer's dementia Chronic renal disease stage III Frequent falls Abnormal CT scan showing 10 mm lytic liver lesion and C2 with nonspecific appearance Plan: Hemoptysis secondary to right lower lobe pulmonary embolism complicated with right lower lobe pneumonia: Patient admitted for observation. Will start Eliquis at 10 mg twice daily for 7 days then transition to 5 mg twice daily. Will consult pulmonology for further recommendation. We will also continue IV Rocephin and Zithromax to cover for pneumonia. Education on Eliquis and pulmonary embolism provided to the . While physical therapy assess ambulation as patient has been falling at home. Fall precautions in place. Maintain sats above 93%. Currently on nasal cannula. Will provide medication for cough. Patient will require home health and physical therapy at discharge. Provide medication for pain. Will check echocardiogram. Anticipate continued improvement. Likely home tomorrow. Hypertension: Restart home medication losartan 100 mg daily. Alzheimer's dementia: Restart home medication Aricept 5 mg daily. Chronic renal disease stage III: Renal function appears stable. Will consult nephrology to monitor. Frequent falls: Patient with reported falls at home. Fall precaution in place. Physical therapy to assess ambulation and provide recommendations. We will also set up home health and physical therapy at discharge. Provide medication for pain. Abnormal CT scan showing 10 mm lytic liver lesion and C2 with nonspecific appearance: We will monitor this closely. Recommend repeat CT scan or MRI within 3 months to monitor stability or resolution. Code Status: Full Code DVT prophylaxis: Eliquis Advanced Care Planning-30 minutes: Set up home health and physical therapy at discharge. Social work also to help with Eliquis coupon if needed. Discharge Plan: Home Plan to discharge in: 24 Hours - Advance Directives Does patient have a Living Will: No Does patient have a Durable POA for Healthcare: No - Code Status/Comfort Care Code Status Assessed: Yes (Patient is full code) Time Spent Managing Pts Care (In Minutes): 55
--- NOTE | 2021-07-18 11:41 | CON ---
Date of Consultation: 07/18/2021 Reason For Consultation: Elevated BUN and creatinine, contrast exposure. History Of Present Illness: This is a pleasant 85-year-old gentleman, [facility] with significant past medical history of hypertension, chronic kidney disease stage 3, normal size kidney 10.8/12.5 with minimal proteinuria secondary to hypertension, nephrosclerosis/renal vascular disease, hypertension, hyperlipidemia, the patient has dementia, the patient came to the hospital wit h hemoptysis and fall, found to have pneumonia and thrombosis on the right lower lobe, and elevation in BUN and creatinine. For that reason, we have been consulted. The patient exposed to contrast wit h a CT. Reviewing the record, baseline creatinine back in April 2021, 1.4 with GFR of 45. Today, creatinine 1.6, GFR of 39. No recent change in his medication. Past Medical History: Includes; 1.Hypertension. 2.Dementia. 3.Hyperlipidemia. 4.Chronic kidney disease, stage 3. Past Surgical History: Includes rotator cuff repair. Family History: Positive for hypertension. Social History: Denied smoking. Denied drinking. Denied drugs abuse. Review of Systems: Head and Neck: No red eye. No ear pain. GI: No nausea. No vomiting. : No polyuria. No dysuria. No hematuria. Shirt Finisher: Not applicable. Respiratory: Has hemoptysis. Has shortness of breath. Cardiovascular: No chest pain. Endocrine: No polydipsia. Skin: No rash. Neuro: Has fall. Musculoskeletal: Low back pain. Physical Examination: General: When I saw the patient; the patient lying in bed. Vital Signs: Blood pressure of 131/58, pulse of 67 afebrile. Chest: Clear to auscultation. Heart: S1, S2. Systolic murmur. Abdomen: Soft, nontender. Extremities: No edema. Neurologic: Alert. No focality. Laboratory Data: Sodium 137, potassium 4.4, bicarb 27, BUN 31, creatinine 1.6, calcium 9.5. Albumin 3.6. WBC 8.3, H and H 12.8/39.4. Urinalysis not done yet. CT with contrast done on this admission showing right mid lobe pulmonary embolism with pneumonia. Assessment And Plan: 1.Acute kidney injury on chronic kidney disease with contrast exposure. I am going to go ahead and start the patient on IV fluid to minimize the contrast-induced injury and we will monitor. 2.Hypertension. Keep avoiding any SOFI inhibitor or ARB. 3.Hyperlipidemia, stable. 4.Pulmonary embolism. The patient is going to be started on Eliquis. I agree with plan. We will f ollow up kidney function. Please avoid any further exposure to any contrast. 5.Pneumonia as by primary. I agree as the patient is going to need to be started on antibiotics, to be started on Levaquin dosage 250 daily. TIANA Voice ID: [id number] Report ID: [id number]
[2021-07-18] MEDS ORDERED: APIXABAN 5 MG TABLET ONE (12:55)
[2021-07-18] MEDS: HYDROCODONE/APAP 7.5/325 MG TAB PO PRN ×2 (13:10→21:02)
[2021-07-18] MEDS: APIXABAN 5 MG TABLET PO SCH ×2 (13:10→21:03)
--- NOTE | 2021-07-18 13:13 | RAD REPORT ---
EXAM DESCRIPTION: US - Renal Ultrasound-Complete - 07/18/2021 12:54 pm CLINICAL HISTORY: SHANNEN COMPARISON: RP EXAM COMPLETE dated 06/30/2014 FINDINGS: The exam was technically difficult. Images are not optimal but felt to be sufficient for d iagnosis. The patient was unable to fully cooperate with the examination. The right kidney measures 11.2 x 3.8 x 4.1 cm. The left kidney measures 11.4 x 5.3 x 4.5 cm. Cortica l thickness is normal. Increased cortical echogenicity present consistent with medical renal disease. No hydronephrosis is present. No solid mass of either kidney. A 2.9 centimeter thin-walled simple cy st is present upper pole right kidney. No bladder wall thickening or mass seen in the partially filled bladder. No intraluminal stone or mas s. IMPRESSION: Underlying medical renal disease is evident. No solid mass lesion, hydronephrosis or oth er emergent finding. A 2.9 centimeter thin-walled simple cyst is present in the upper pole right kidney. No other significant findings.
[2021-07-18] MEDS ORDERED: AMOX/K CLAV 500 MG TAB PO SCH (13:14)
--- NOTE | 2021-07-18 13:16 | P.CNS ---
Date of Consult: 07/18/21 Primary Care Provider: Dr. Douglas; Cardiology-Dr. Donato; Nephrology-Dr. Marshall Chief Complaint: Hemoptysis History of Present Illness: Patient is 85 years of age with a history of coronavirus recovered from it admitted to the hospital with hemoptysis minimal shortness of breath found to have right lower lobe pneumonia possible pulmonary embolism currently doing very well no new complaints feeling a little weak Allergies No Known Allergies Allergy (Verified 07/24/14 17:38) Home Medications: Donepezil [Aricept*] 5 mg PO BEDTIME 04/15/21 Benzonatate [Tessalon Perle*] 100 mg PO TID PRN #30 cap 04/16/21 Cholecalciferol (Vitamin D3) [Vitamin D 1000 Iu Tab*] 4,000 unit PO DAILY #90 tab 04/16/21 Fludrocortisone [Florinef *] 0.1 mg PO DAILY #30 tab 04/16/21 Zinc Sulfate [Zinc Sulfate*] 220 mg PO DAILY #30 cap 04/16/21 predniSONE [Prednisone*] 20 mg PO BID #11 tab 04/16/21 - Past Medical/Surgical History -: Dementia -: Hypertension -: Chronic renal disease stage III -: Coronavirus infection -: Left rotator cuff surgery Psychosocial/ Personal History: Patient lives at home with his . takes care of patient. - Family History Father Medical History: Hypertension Mother Medical History: Hypertension - Social History Smoking Status: Unknown if ever smoked Alcohol use: No CD- Drugs: No Caffeine use: No Place of Residence: Home Review of Systems General: Weakness Respiratory: As per HPI Physical Examination Temp Pulse Resp BP Pulse Ox 70 19 151/70 H 100 07/18/21 12:00 07/18/21 12:00 07/18/21 12:00 07/18/21 12:00 General: Alert, In no apparent distress, Oriented x3 Neck: Supple Respiratory: Clear to auscultation bilaterally Cardiovascular: No edema Gastrointestinal: Normal bowel sounds, Soft and benign Laboratory Data (last 24 hrs) 07/18/21 08:20: PT 12.9 H, INR 1.12 07/18/21 08:20: WBC 8.30, Hgb 12.8 L, Hct 39.4 L, Plt Count 147 L 01/06/22 08:20: Sodium 137, Potassium 4.4, BUN 31 H, Creatinine 1.67 H, Glucose 107 H, Magnesium 2.6 H D, Total Bilirubin 0.6, AST 14 L, ALT 17, Alkaline Phosphatase 75 - Problems (1) Hemoptysis Current Visit: Yes Status: Acute Plan: Patient is 85 years of age admitted with hemoptysis probably has right lower lobe pneumonia with some pulmonary embolism agree with full oral anticoagulation patient has chronic renal failure normal white count vital signs are stable plan to discharge in a.m. on some p.o. antibiotics patient is to follow-up with me in 2 weeks Patient has a 10 mm lytic lesion that needs a follow-up
[2021-07-18] MEDS ORDERED: BENZONATATE 100 MG CAP PO PRN (13:28)
[2021-07-18] MEDS ORDERED: ACETAMINOPHEN 500 MG TAB PO PRN (13:28)
[2021-07-18] MEDS ORDERED: NA CHLORIDE 0.9% 1,000 ML IV SCH (13:28)
[2021-07-18] MEDS ORDERED: TRAMADOL HCL 50 MG TAB PO PRN (13:28)
[2021-07-18] MEDS ORDERED: ONDANSETRON 4 MG/2 ML VIAL IV PRN (13:28)
[2021-07-18 14:11] VITALS: BMI 25.7
[2021-07-18] MEDS: CEFTRIAXONE 1,000 MG in NA CHLORIDE 0.9% 50 ML IVPB SCH (14:25)
[2021-07-18] MEDS ORDERED: DONEPEZIL HCL 5 MG TAB PO SCH (21:00)
--- NOTE | 2021-07-19 05:47 | P.DS ---
Admission Date: 07/18/21 Discharge Date: 07/19/21 Primary Care Provider: Dr. Douglas; Cardiology-Dr. Donato; Nephrology-Dr. Marshall Disposition: ROUTINE DISCHARGE Discharge Condition: GOOD Reason for Admission: Hemoptysis Consultations: Pulmonary-Dr. Marcelino Nephrology-Dr. Marshall Procedures: COVID: negative CT head/neck: COMPARISON: None. TECHNIQUE: Computed axial tomography of the head and cervical spine was obtained. Sagittal and coronal reconstruction was performed. All CT scans are performed using dose optimization technique as appropriate and may include automated exposure control or mA/KV adjustment according to patient size. FINDINGS: Mild low density areas within periventricular, deep and subcortical white matter probably ischemic changes secondary to small vessel disease. Cerebral atrophy is present. An intracranial bleed is not seen. The ventricles are normal in caliber. An extra-axial fluid collection is not noted.Fluid within the visualized sinuses and mastoids is not seen A cervical fracture is not visualized. No dislocation is noted. A 10 millimeter lytic lesion left aspect of the dens IMPRESSION: No acute intracranial abnormality is seen. A cervical fracture is not visualized. If the patient continues to have symptoms to suggest intracranial /spinal cord pathology then MRI would be recommended 10 millimeter liver lytic lesion C2 has a nonspecific appearance. Followup CT in 3 months could be obtained to assess stability. Alternatively, a bone scan could be obtained. CT chest: COMPARISON: April 2021 TECHNIQUE: Dynamically enhanced axial 3 mm thick images of the chest were obtained during administration of 75 mL Isovue 370 IV contrast. Coronal and oblique reconstruction images were generated and reviewed. Exam utilizes a protocol for optimal evaluation of pulmonary arterial tree. Maximum intensity projections 3D imaging was utilized All CT scans are performed using dose optimization technique as appropriate and may include automated exposure control or mA/KV adjustment according to patient size. FINDINGS: Small filling defects peripheral right lower lobe arteries. Ascending thoracic aorta has an AP diameter 4.3 centimeters. A pleural effusion is not seen. A pericardial effusion is not seen. Mild right lower lobe opacities. Moderate stenosis proximal left subclavian artery. IMPRESSION: Mild right lower lobe pulmonary embolus Mild right lower lobe opacities may represent pneumonia, atelectasis or infarction. Renal US: COMPARISON: RP EXAM COMPLETE dated 06/30/2014 FINDINGS: The exam was technically difficult. Images are not optimal but felt to be sufficient for diagnosis. The patient was unable to fully cooperate with the examination. The right kidney measures 11.2 x 3.8 x 4.1 cm. The left kidney measures 11.4 x 5.3 x 4.5 cm. Cortical thickness is normal. Increased cortical echogenicity present consistent with medical renal disease. No hydronephrosis is present. No solid mass of either kidney. A 2.9 centimeter thin-walled simple cyst is present upper pole right kidney. No bladder wall thickening or mass seen in the partially filled bladder. No intraluminal stone or mass. IMPRESSION: Underlying medical renal disease is evident. No solid mass lesion, hydronephrosis or other emergent finding. A 2.9 centimeter thin-walled simple cyst is present in the upper pole right kidney. No other significant findings. Medical Problem list: Hemoptysis secondary to right lower lobe pulmonary embolism complicated with right lower lobe pneumonia Hypertension Alzheimer's dementia Chronic renal disease stage III Frequent falls Abnormal CT scan showing 10 mm lytic liver lesion and C2 with nonspecific appearance Brief History of Present Illness: 85-year-old male with history of hypertension, dementia, chronic renal disease stage III. Patient was seen in the ER yesterday for a fall. Patient overnight had some hemoptysis. Minimal shortness of breath noted. No mention of fever. Patient with underlying dementia. Most of the history came from the . Patient also reported some pain to the right chest wall. He came to the ER for further evaluation. In the ER patient was evaluated. White count 8.3, hemoglobin 12. Platelet count 147. Sodium 137, potassium 4.4. BUN of 31, creatinine 1.6 with GFR of 39. Glucose 107. Troponin negative. Covid test negative. CT chest showed mi ld right lower lobe pulmonary embolism and possible pneumonia. CT head showed 10 mm liver lytic lesion and C2 abnormality. Patient admitted for further evaluation and treatment. Patient with history of Covid in April. Hospital Course: Patient presented with hemoptysis. Patient was evaluated emergency room. CT scan revealed mild right lower lobe pulmonary embolism with pneumonia. Patient was admitted for treatment. Patient also had reported some falls at home. Patient was started on antibiotic therapy and Eliquis. Patient has done well. Patient on room air. Patient worked with physical therapy with improvement. Pulmonology consulted. Pulmonology recommended continued at discharge patient will continue with Eliquis 10 mg twice daily for 7 days then 5 mg twice daily for up to 6 months. Recommend follow-up with pulmonology in 1 to 2 weeks to follow-up his hospitalization and to continue his care. Recommend to recheck chest x-ray in 2 to 4 weeks to monitor resolution of pneumonia. Education on Eliquis, pulmonary embolism and pneumonia provided. Follow-up with PCP in 1 week to follow-up his hospitalization. Case discussed in detail with who takes care of the patient. Home health and physical therapy will be arranged prior to discharge. Patient reported fall at home. Patient work with physical therapy with improvement. CT scan revealed nonspecific appearance to C2 region. No evidence of abnormality on clinical exam. Recommend possible repeat CT scan or MRI within 3 months to monitor stability or resolution. This can be done as an outpatient with his PCP. At discharge home health and physical therapy will be arranged. CT scan also revealed a 10 mm lytic liver lesion. Recommend repeat CT scan or MRI within 3 months to further evaluate. This can be done with the help of his PCP. Patient with hypertension. Losartan was held during his hospitalization. At discharge he may continue with losartan 100 mg daily. Aspirin will be discontinued since the patient will be on Eliquis at discharge. Recommend to maintain blood pressure less than 130/80. Further adjustment can be done by his PCP. Patient with chronic renal disease stage III. Overall stable. Nephrology was consulted. Patient was given IV fluids overnight with improvement in renal function. Future medications will need to be renally dosed. Recommend no further use of nonsteroidal anti-inflammatories. Recommend to recheck labBMP in 1 week to monitor his progress. Recommend follow-up with nephrology to further monitor. Patient with Alzheimer's dementia. Overall stable. Patient functional and appropriate. At discharge patient will continue with Aricept 5 mg daily. Recommend to add folic acid 1 mg daily at discharge. Fall precaution in place. Patient may have underlying GERD. At discharge recommend to start Pepcid 20 mg daily. Patient had mild rash to the left lower extremity. reports this is chronic. This appeared improved. Patient may continue with Lubriderm as needed. May take Claritin 5 mg or Zyrtec 5 mg at night as needed for itching. Vital Signs/Physical Exam: Temp Pulse Resp BP Pulse Ox 97.8 F 77 19 141/66 H 96 07/19/21 04:00 07/19/21 04:00 07/19/21 04:00 07/19/21 04:00 07/19/21 04:00 General: Alert, In no apparent distress, Demented (Mild) HEENT: Atraumatic Neck: Supple Respiratory: Clear to auscultation bilaterally Cardiovascular: Normal pulses, Regular rate/rhythm Gastrointestinal: Normal bowel sounds, No ascites, No masses, No rebound, No guarding Integumentary: No tenderness/swelling, No erythema, No warmth, No cyanosis Neurological: Normal speech, Normal strength at 5/5 x4 extr, Normal tone Laboratory Data at Discharge: WBC 8.30 K/uL (4.3-10.9) 07/18/21 08:20 Hgb 12.8 g/dL (13.6-17.9) L 07/18/21 08:20 Hct 39.4 % (39.6-49.0) L 07/18/21 08:20 Plt Count 147 K/uL (152-406) L 07/18/21 08:20 PT 12.9 SECONDS (9.5-12.5) H 07/18/21 08:20 INR 1.12 07/18/21 08:20 Sodium 137 mmol/L (136-145) 07/18/21 08:20 Potassium 4.4 mmol/L (3.5-5.1) 07/18/21 08:20 BUN 31 mg/dL (7-18) H 07/18/21 08:20 Creatinine 1.67 mg/dL (0.55-1.3) H 07/18/21 08:20 Glucose 107 mg/dL (74-106) H 07/18/21 08:20 Magnesium 2.6 mg/dL (1.8-2.4) H D 07/18/21 08:20 Total Bilirubin 0.6 mg/dL (0.2-1.0) 07/18/21 08:20 AST 14 U/L (15-37) L 07/18/21 08:20 ALT 17 U/L (12-78) 07/18/21 08:20 Alkaline Phosphatase 75 U/L (45-117) 07/18/21 08:20 Home Medications: Donepezil [Aricept*] 5 mg PO BEDTIME 04/15/21 Losartan Potassium 100 mg PO DAILY 07/18/21 Apixaban [Eliquis] 5 mg PO SEECOM #75 tablet 07/19/21 Famotidine [Pepcid*] 20 mg PO DAILY #30 tab 07/19/21 Folic Acid 1 mg PO DAILY #90 tablet 07/19/21 New Medications: Apixaban [Eliquis] 5 mg PO SEECOM #75 tablet Folic Acid 1 mg PO DAILY #90 tablet Famotidine [Pepcid*] 20 mg PO DAILY #30 tab Physician Discharge Instructions: Patient presented with hemoptysis. Patient was evaluated emergency room. CT scan revealed mild right lower lobe pulmonary embolism with pneumonia. Patient was admitted for treatment. Patient also had reported some falls at home. Patient was started on antibiotic therapy and Eliquis. Patient has done well. Patient on room air. Patient worked with physical therapy with improvement. Pulmonology consulted. Pulmonology recommended continued at discharge patient will continue with Eliquis 10 mg twice daily for 7 days then 5 mg twice daily for up to 6 months. Recommend follow-up with pulmonology in 1 to 2 weeks to fol low-up his hospitalization and to continue his care. Recommend to recheck chest x-ray in 2 to 4 weeks to monitor resolution of pneumonia. Education on Eliquis, pulmonary embolism and pneumonia provided. Follow-up with PCP in 1 week to follow-up his hospitalization. Case discussed in detail with who takes care of the patient. Home health and physical therapy will be arranged prior to discharge. Patient reported fall at home. Patient work with physical therapy with improvement. CT scan revealed nonspecific appearance to C2 region. No evidence of abnormality on clinical exam. Recommend possible repeat CT scan or MRI within 3 months to monitor stability or resolution. This can be done as an outpatient with his PCP. At discharge home health and physical therapy will be arranged. CT scan also revealed a 10 mm lytic liver lesion. Recommend repeat CT scan or MRI within 3 months to further evaluate. This can be done with the help of his PCP. Patient with hypertension. Losartan was held during his hospitalization. At discharge he may continue with losartan 100 mg daily. Aspirin will be discontinued since the patient will be on Eliquis at discharge. Recommend to maintain blood pressure less than 130/80. Further adjustment can be done by his PCP. Patient with chronic renal disease stage III. Overall stable. Nephrology was consulted. Patient was given IV fluids overnight with improvement in renal function. Future medications will need to be renally dosed. Recommend no further use of nonsteroidal anti-inflammatories. Recommend to recheck labBMP in 1 week to monitor his progress. Recommend follow-up with nephrology to further monitor. Patient with Alzheimer's dementia. Overall stable. Patient functional and appropriate. At discharge patient will continue with Aricept 5 mg daily. Recommend to add folic acid 1 mg daily at discharge. Fall precaution in place. Patient may have underlying GERD. At discharge recommend to start Pepcid 20 mg daily. Patient had mild rash to the left lower extremity. reports this is chronic. This appeared improved. Patient may continue with Lubriderm as needed. May take Claritin 5 mg or Zyrtec 5 mg at night as needed for itching. Diet: AHA Activity: Fall precautions Followup: Alvarez Douglas DO [Primary Care Provider] - Time spent managing pt's care (in minutes): 55
[2021-07-19 06:04] LABS: Absolute Lymphocytes (CBC) 1.3 K/uL (0.7-4.9); Hematocrit 36.3 % (39.6-49.0); Lymphocytes % 17.5 % (15.3-44.8); MPV 7.7 fL (7.6-11.3); RBC Red Blood Cell Count 4.35 M/uL (4.33-5.43)
[2021-07-19] MEDS ORDERED: HYDRALAZINE HCL 20 MG/ML VIAL IV PRN (06:11)
[2021-07-19 06:30] LABS: Albumin 2.8 g/dL (3.4-5.0); Magnesium 2.2 mg/dL (1.8-2.4); Phosphorus 1.9 mg/dL (2.5-4.9); Potassium 4.4 mmol/L (3.5-5.1); Uric Acid 5.6 mg/dL (3.5-7.2)
[2021-07-19 06:52] VITALS: O2SAT 94
[2021-07-19 08:43] VITALS: BP 157/72; TEMP 97.4
[2021-07-19] MEDS ORDERED: VITAMIN D 1000 UNIT TAB PO SCH (09:00)
[2021-07-19] MEDS ORDERED: FAMOTIDINE 20 MG TAB PO SCH (09:00)
[2021-07-19] MEDS ORDERED: AZITHROMYCIN IV 250 MG in NA CHLORIDE 0.9% 250 ML IVPB SCH ×4 (09:00)
[2021-07-19] MEDS ORDERED: FOLIC ACID 1 MG TABLET PO SCH (09:00)
[2021-07-19] MEDS: CEFTRIAXONE 1,000 MG in NA CHLORIDE 0.9% 50 ML IVPB SCH (09:29)
[2021-07-19] MEDS: APIXABAN 5 MG TABLET PO SCH (09:30)
--- NOTE | 2021-07-19 10:06 | EKG ---
Test Date: 2021-07-18 Test Time: 08:09:43 Hand Rug Braider: EO MEASUREMENT RESULTS: Intervals: Rate: 62 AR: 200 QRSD: 128 QT: 448 QTc: 454 Morgan: P: 39 AR: 200 QRS: -31 T: 71 INTERPRETIVE STATEMENTS: Normal sinus rhythm Left axis deviation Right bundle branch block Voltage criteria for left ventricular hypertrophy Cannot rule out Septal infarct, age undetermined Possible Lateral infarct, age undetermined Abnormal ECG Compared to ECG 04/14/2021 19:22:12 Sinus arrhythmia no longer present Myocardial infarct finding still present Electronically Signed On 07-19-21 10:04:39 INTERFACE ENGINEER by Negro Alejandro
[2021-07-19] MEDS: HYDROCODONE/APAP 7.5/325 MG TAB PO PRN (12:07)
[2021-07-25] MEDS ORDERED: APIXABAN 5 MG TABLET PO SCH (09:00)
== END 2021-07-19 12:24 | disposition home or self-care (01) ==
LOC: ER 06:56 → ERHOLD 10:40 → 2ND 12:33
PROVIDERS: ADMIT Family Medicine; ATTEND Family Medicine
DX: I26.99 Other pulmonary embolism without acute cor pulmonale (principal); J18.9 Pneumonia, unspecified organism; I12.9 Hypertensive chronic kidney disease with stage 1 through stage 4 chronic kidney disease, or unspecified chronic kidney disease; N17.9 Acute kidney failure, unspecified; N18.30 Chronic kidney disease, stage 3 unspecified; G30.9 Alzheimer's disease, unspecified; F02.80 Dementia in other diseases classified elsewhere, unspecified severity, without behavioral disturbance, psychotic disturbance, mood disturbance, and anxiety; R21 Rash and other nonspecific skin eruption; K76.9 Liver disease, unspecified; E78.5 Hyperlipidemia, unspecified; Z91.81 History of falling; Z86.16 Personal history of COVID-19; Z20.822 Contact with and (suspected) exposure to COVID-19
CPT/HCPCS: 96365; 93005; 87040 ×2; 85025 ×2; 80048; 36415; 83735 ×2; 82550; 85610; 80076; 84550; 80069; 84484; 83880; 70450; 72125; 71275; 76770; 99285; U0003; Q9967; J0360; J0456 ×2; J7050 ×2; J7030 ×2; J2405; G0378; J1170

== ENCOUNTER 2022-06-21 22:13 | Emergency (ER) | payer OTHER ==
[2012-01-17 11:05] VITALS: BP 136/64
--- OUTSIDE RECORDS SUMMARY | 2022-06-21 22:17 | XMS REPORT | Continuity of Care Document ---
:1935 Author Organization [facility] t Address [address] [place] [address] Care Team Providers Name Role Phone Jakob Goodrich MD Primary Care Physician Alvarez Douglas Attending Clinician Unavailable Jamshid Brian Attending Clinician Therapy, [facility] Attending Clinician Unavailable Nolan Douglas MD Attending Clinician NOLAN DOUGLAS Attending Clinician Unavailable Doctor Unassigned, [place] Attending Clinician Unavailable [facility], [facility] Attending Clinician Unavailable Jakob Goodrich MD Attending Clinician Payers Payer Name Policy Type Policy Effective Date Expiration Date Sour ce Number [facility] 53 [id number] 2021 Commo n Spirit 00:00:00 - [facility] [employer] MEDICARE [id number] 2013 00:00:00 Problems Condition Condition Condition Status Onset Resolution Last Treating Co mments Source Name Details Category Date Date Treatment Clinician Date Fever in Fever in Disease Active Unive rs adult adult 5-28 ity of 00:00: [address] Branch [id number] EDA Problem Active Common (generaliz Spirit ed anxiety - [facility] disorder) [facility] 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 Spirit - [facility] Thoracic Thoracic Problem Active Commo n aortic aortic Spirit aneurysm aneurysm - [facility] without without St rupture [facility] Peripheral 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 - [facility] Overweight Overweight Problem Active C ommon [facility] - [facility] Nicotine Personal Problem Active Commo n dependence history of Sp pamella nicotine - [facility] dependence [facility] Constipati Constipati Problem Active C ommon on on Spirit - [facility] Cataract Cataract Problem Active Commo n Spirit - [facility] Coronary Coronary Problem Active 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 - [facility] [id number] GERD Problem Active Common without Spirit esophagiti - [facility] s [facility] Chronic 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 - [facility] stage 3A disease [facility] [id number] Liver Problem Active Common lesion [facility] - [facility] [id number] Vitamin D Problem Active Comm on deficiency Spirit disease - [facility] [id number] Essential Problem Active Comm on hypertensi Spirit on [facility] [id number] 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[facility] rhinitis, [facility] [id number] Alzheimer' Problem Active Com mon s disease, [facility] unspecie - [facility] d [facility] [id number] Dementia Problem Active Comm on in other Spirit diseases - [facility] classified [facility] without [facility] disturbanc e [id number] Primary Problem Active Common insomnia [facility] - [facility] [id number] Dementia Problem Active Com mon 103 in other Spirit diseases - [facility] classified [facility] with Medical behavioral Center disturbanc e Amnesia Amnesia Problem Active 2022-06-13 Me moria (finding) (finding) 00:55:24 l Active Kunal Problem 06/13/2022 [facility] Dementia Dementia Problem Active 2022-06-13 Memoria (disorder) (disorder) 00:55:24 l Active [place] Problem 06/13/2022 [facility] Hypertensi Hypertens Problem Active 2022-06-13 Memoria ve geovanna 00:55:24 l disorder, disorder, Herm yue systemic systemic arterial arterial (disorder) (disorder) Active Problem 06/13/2022 [facility] Pain in Pain in Problem Active 2022-06-13 Me moria right leg right leg 00:55:24 l (finding) (finding) Herm yue Active Problem 06/13/2022 [facility] Chronic Chronic Problem Active 2022-06-13 Me marino renal renal 00:55:24 l 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 Problem 06/13/2022 [facility] Tremor Tremor Problem Active 2022-06-13 Hood gautam (finding) (finding) 00:55:24 l Active Kunal Problem 06/13/2022 [facility] Delusions Delusions Problem Active 2022-06-13 Memoria (finding) (finding) 00:55:24 l Active [place] Problem 06/13/2022 [facility] Allergies, Adverse Reactions, Alerts Allergy Allergy Status Severity Reaction(s) Onset Inactive Treating Comm ents Source Name Type Date Date Clinician NO KNOWN Drug Active Univers ALLERGIE Class ity of [facility] Social History Social Habit Start Date Stop Date Quantity Comments Source Exposure to Not sure [facility] SARS-CoV-2 (event) Medica l Branch History of Tobacco Common [facility] - [facility] Use [facility] al Center Social History 2022-05-16 2022-05-16 [facility] 15:41:08 15:41:08 Social History 2020-05-16 2020-05-16 [facility] 16:57:43 16:57:43 Tobacco use and 2019-12-08 2019-12-08 Never used [facility] exposure 00:00:00 00:00:00 Medical Branch Smoking Status Start Date Stop Date Source Tobacco smoking status [facility] Medications Ordered Filled Start Stop Current Ordering Indication Dosage Frequency Signature Comments Components Source Medication Medication Date Date Medication? Clinician (SIG) Name Name Gildardo 9.5 Yes = 1 patch, M emoria mg/24 hr 8-23 TOP, l transdermal 16:32: Daily, Herm yue film, 00 apply to extended area that release is clean/dry/ hairless & free of redness/ir ritation/b urns/cuts, # 30 patch, 3 Refill(s), Pharmacy: [facility] [id number], 180.34, cm, 03/04/22 11:21:00 CDT, Height, 91.42, kg, 03/04/22 11:21:00 CDT, Weight SEROquel 25 Yes 75 mg = 3 M emoria mg oral 8-23 tab, PO, l tablet 16:32: Bedtime, # Faith nn 00 90 tab, 3 Refill(s), Pharmacy: [facility] [id number], 180.34, cm, 03/04/22 11:21:00 CDT, Height, 91.42, kg, 03/04/22 11:21:00 CDT, Weight sertraline Yes = 1 tab, Mem oria 50 mg oral 8-08 PO, Daily, l tablet 17:11: # 30 tab, Quinton n 00 3 Refill(s), Pharmacy: [facility] [id number], 181.61, cm, 01/02/22 13:36:00 CDT, Height, 90.142, kg, 01/02/22 13:36:00 CDT, Weight SEROquel 25 Yes 50 mg = 2 M emoria mg oral 6-23 tab, PO, l tablet 18:49: Bedtime, # Faith nn 00 60 tab, 3 Refill(s), Pharmacy: [facility] [id number], 181.61, cm, 01/02/22 13:36:00 CDT, Height, 90.142, kg, 01/02/22 13:36:00 CDT, Weight Exelon 9.5 Yes = 1 patch, M emoria mg/24 hr 4-21 TOP, l transdermal 18:34: Daily, Herm yue film, 00 apply to extended area that release is clean/dry/ hairless & free of redness/ir ritation/b urns/cuts, # 30 patch, 3 Refill(s), Pharmacy: [facility] [id number], 182.88, cm, 10/31/21 13:19:00 CDT, Height, 87.273, kg, 10/31/21 13:19:00 CDT, Weight Zoloft 50 Yes 50 mg = 1 Mem oria mg oral 4-21 tab, PO, l tablet 18:33: Daily, # [place] 00 30 tab, 2 Refill(s), Pharmacy: [facility] [id number], 182.88, cm, 10/31/21 13:19:00 CDT, Height, 87.273, kg, 10/31/21 13:19:00 CDT, Weight Sertraline Yes 25 mg = 1 Me moria 25 MG Oral 3-23 tab, PO, l Tablet 16:35: Daily, # Kunal [Zoloft] 00 30 tab, 3 Refill(s), Pharmacy: [facility] [id number], 182.88, cm, 10/02/21 11:08:00 CDT, Height, 87.273, kg, 10/02/21 11:08:00 CDT, Weight 24 HR 0 Yes = 1 patch, Memori a rivastigmin 2-01 TOP, l e 0.192 16:51: Daily, [place] MG/HR 00 apply to Transdermal area that Patch is [Exelon] clean/dry/ hairless & free of redness/ir ritation/b urns/cuts, # 30 patch, 3 Refill(s), Pharmacy: [facility] [id number], 180.34, cm, 08/13/21 10:25:00 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, Height, 86.364, kg, 08/13/21 10:25:00 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, Weight quetiapine Yes 25 mg = 1 Me moria 25 MG Oral 2-01 tab, PO, l Tablet 16:51: Bedtime, # Faith nn [Seroquel] 00 30 tab, 3 Refill(s), Pharmacy: [facility] [id number], 180.34, cm, 08/13/21 10:25:00 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, Height, 86.364, kg, 08/13/21 10:25:00 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, Weight QUEtiapine QUEtiapine No BID QUEtiapine Fumarate 25 Fumarate 25 1-25 Fumarate MG MG 00:00: 25 MG 00 donepezil 5 2020-07 No 5 mg = 1 Me moria mg oral 0-28 tab, PO, l tablet 18:12: Bedtime, # Faith nn 00 90 tab, 2 Refill(s), Pharmacy: [facility] [id number], 180.34, cm, 02/07/21 9:46:00 CDT, Height, 90, kg, 02/07/21 9:46:00 CDT, Weight donepezil 2020-07 No 10 mg = 1 Mem oria 10 mg oral 0-26 tab, PO, l tablet 16:24: Bedtime, # Faith nn 00 90 tab, 3 Refill(s), Pharmacy: [facility] [id number], 180.34, cm, 02/07/21 9:46:00 CDT, Height, 90, kg, 02/07/21 9:46:00 CDT, Weight casirivimab 2020- No [id number] 1200mg 1,200 mg, [facility] -imdevimab 04-06 Subcutaneo it y of (REGEN-COV 14:45: 13:09 us, ONCE, [place] (EUA)) 00 :00 1 dose, On Medical injection Sat Branch 1,200 mg 04/06/21 at 0945, Routine Vitamin D2 Vitamin D2 No 7-27 00:00: 00 Losartan Losartan No 1{table QD Potassium Potassium 7- t} 100 MG 100 MG 00:00: 00 donepezil 2019-07 Yes 10 mg = 1 Mem oria 10 mg oral 2-29 tab, PO, l tablet 16:22: Bedtime, # Faith nn 00 90 tab, 2 Refill(s), Pharmacy: [facility], 185.42, cm, 07/10/20 10:09:00 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, Height, 92.727, kg, 07/10/20 10:09:00 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, Weight Donepezil 2019-07 Yes 5 mg = 1 Hood gautam hydrochlori 1-17 tab, PO, l de 5 MG 16:26: Bedtime, # Herm yue Oral Tablet 00 30 tab, 3 [Aricept] Refill(s), Pharmacy: [facility], 701.04, cm, 05/29/20 10:07:00 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, Height, 92.727, kg, 05/29/20 10:07:00 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, Weight Aspirin 81 2019-07 Yes 81 mg = 1 Me moria MG Enteric 1-04 tab, PO, l Coated 16:16: Daily, # Uknal Tablet 00 90 tab, 3 Refill(s) losartan 2019-07 Yes 100 mg = 1 Mem oria 100 mg oral 1-04 tab, PO, l tablet 16:16: Daily, 0 Kunal 00 Refill(s) aspirin 81 2020-1 Yes 81 mg = 1 Me moria mg tablet, 1-04 tab, PO, l enteric 16:16: Daily, # [place] n coated 00 90 tab, 3 Refill(s) amLODIPine 2019-0 Yes amlodipine U nivers 5 mg tablet 5-28 besylate 5 it y of 19:56: mg tabs [address] azithromyci Yes azithromyc Univers n 250 mg 5-28 in 250 mg ity of tablet 19:56: tabs [address] fluticasone Yes fluticason Univers propionate 5-28 e ity of 50 19:56: propionate [place] mcg/actuati 07 50 mcg/act Me dical on nasal susp Branch spray traMADol 50 2019-0 Yes tramadol Un [place] mg tablet 5-28 hcl 50 mg ity o f 19:56: [address] amLODIPine 2019-0 Yes amlodipine U nivers 5 mg tablet 5-28 besylate 5 it y of 14:56: mg tabs [address] azithromyci 2019- Yes azithromyc Univers n 250 mg 5-28 in 250 mg ity of tablet 14:56: tab[address] fluticasone 2019-0 Yes fluticason Univers propionate 5-28 e ity of 50 14:56: propionate [place] mcg/actuati 07 50 mcg/act Me dical on nasal susp Branch spray traMADol 50 2019-0 Yes tramadol Un [place] mg tablet 5-28 hcl 50 mg ity o f 14:56: tabs [address] amLODIPine 2019-0 Yes amlodipine U nivers 5 mg tablet 5-28 besylate 5 it y of 14:56: mg tabs [address] azithromyci 2019-0 Yes azithromyc Univers n 250 mg 5-28 in 250 mg ity of tablet 14:56: tabs [address] fluticasone 2019-0 Yes fluticason Univers propionate 5-28 e ity of 50 14:56: propionate [place] mcg/actuati 07 50 mcg/act Me dical on nasal susp Branch spray traMADol 50 2019-0 Yes tramadol Un [place] mg tablet 5-28 hcl 50 mg ity o f 14:56: tabs [place] 07 Medical Branch acetaminoph 2020-0 Yes [id number] 500mg Take 1 Univers en 500 mg 5-28 tablet by ity o f tablet 00:00: mouth [place] 00 every 6 Medical (six) Branch hours as needed for Pain. acetaminoph 2020-0 Yes [id number] 500mg Take 1 Univers en 500 mg 5-28 tablet by ity o f tablet 00:00: mouth [place] 00 every 6 Medical (six) Branch hours as needed for Pain. acetaminoph 2020-0 Yes [id number] 500mg Take 1 Univers en 500 mg 5-28 tablet by ity o f tablet 00:00: mouth [place] 00 every 6 Medical (six) Branch hours as needed for Pain. losartan 50 2020-0 Yes Univer s mg tablet 11-18 ity of 00:00: [place] [facility] losartan 50 2020-0 Yes Univer s mg tablet 11-18 ity of 00:00: [place] [address] Medical Branch losartan 50 2020-0 Yes Univer s mg tablet 11-18 ity of 00:00: [place] [address] Medical Branch Famotidine Famotidine No 1{table QD Famotidine 20 MG 20 MG t_at_be 20 MG dtime_a s_neede d} Vitamin D2 Vitamin D2 No Vitamin D2 Apixaban 5 Apixaban 5 No Apixaban 5 MG MG MG Donepezil Donepezil No 1{table QD Donepezil HCl 10 MG HCl 10 MG t_at_be HCl 10 MG dtime} traMADol traMADol No 1{table QD traMADol HCl 50 MG HCl 50 MG t_as_ne HCl 50 MG eded} Losartan Losartan No 1{table QD Losartan Potassium Potassium t} Potassium 100 MG 100 MG 100 MG Losartan Losartan No 1{table QD Losartan Potassium Potassium t} Potassium 100 MG 100 MG 100 MG Zoloft 50 Zoloft 50 No 1{table QD Zoloft 50 MG MG t} MG Famotidine Famotidine No 1{table QD Famotidine 20 MG 20 MG t_at_be 20 MG dtime_a s_neede d} Rivastigmin Rivastigmin No Rivastigmi e 9.5 e 9.5 ne 9.5 MG/24HR MG/24HR MG/24HR Vitamin D2 Vitamin D2 No Vitamin D2 traMADol traMADol No 1{table QD traMADol HCl 50 MG HCl 50 MG t_as_ne HCl 50 MG eded} Rivastigmin Rivastigmin No Rivastigmi e 9.5 e 9.5 ne 9.5 MG/24HR MG/24HR MG/24HR Losartan Losartan No 1{table QD Losartan Potassium Potassium t} Potassium 100 MG 100 MG 100 MG Famotidine Famotidine No 1{table QD Famotidine 20 MG 20 MG t_at_be 20 MG dtime_a s_neede d} traMADol traMADol No 1{table QD traMADol HCl 50 MG HCl 50 MG t_as_ne HCl 50 MG eded} Zoloft 50 Zoloft 50 No 1{table QD Zoloft 50 MG MG t} MG Vitamin D2 Vitamin D2 No Vitamin D2 Rivastigmin Rivastigmin No Rivastigmi e 9.5 e 9.5 ne 9.5 MG/24HR MG/24HR MG/24HR Losartan Losartan No 1{table QD Losartan Potassium Potassium t} Potassium 100 MG 100 MG 100 MG Zoloft 50 Zoloft 50 No 1{table QD Zoloft 50 MG MG t} MG Vitamin D2 Vitamin D2 No Vitamin D2 Famotidine Famotidine No 1{table QD Famotidine 20 MG 20 MG t_at_be 20 MG dtime_a s_neede d} traMADol traMADol No 1{table QD traMADol HCl 50 MG HCl 50 MG t_as_ne HCl 50 MG eded} Stool Stool No Stool Softener Softener Softener Donepezil Donepezil No 1{table QD HCl 10 MG HCl 10 MG t_at_be dtime} Vitamin D2 Vitamin D2 No Vitamin D2 Folic Acid Folic Acid No 1{table QD Folic Acid 1 MG 1 MG t} 1 MG traMADol traMADol No 1{table QD traMADol HCl 50 MG HCl 50 MG t_as_ne HCl 50 MG eded} Losartan Losartan No 1{table QD Losartan Potassium Potassium t} Potassium 100 MG 100 MG 100 MG Apixaban 5 Apixaban 5 No Apixaban 5 MG MG MG Donepezil Donepezil No 1{table QD Donepezil HCl 10 MG HCl 10 MG t_at_be HCl 10 MG dtime} Famotidine Famotidine No 1{table QD Famotidine 20 MG 20 MG t_at_be 20 MG dtime_a s_neede d} Vitamin D2 Vitamin D2 No Vitamin D2 Folic Acid Folic Acid No 1{table QD Folic Acid 1 MG 1 MG t} 1 MG traMADol traMADol No 1{table QD traMADol HCl 50 MG HCl 50 MG t_as_ne HCl 50 MG eded} Losartan Losartan No 1{table QD Losartan Potassium Potassium t} Potassium 100 MG 100 MG 100 MG Apixaban 5 Apixaban 5 No Apixaban 5 MG MG MG Donepezil Donepezil No 1{table QD Donepezil HCl 10 MG HCl 10 MG t_at_be HCl 10 MG dtime} Famotidine Famotidine No 1{table QD Famotidine 20 MG 20 MG t_at_be 20 MG dtime_a s_neede d} Donepezil Donepezil No 1{table QD Donepezil HCl 10 MG HCl 10 MG t_at_be HCl 10 MG dtime} Vitamin D2 Vitamin D2 No Vitamin D2 Losartan Losartan No 1{table QD Losartan Potassium Potassium t} Potassium 100 MG 100 MG 100 MG Folic Acid Folic Acid No 1{table QD Folic Acid 1 MG 1 MG t} 1 MG Folic Acid Folic Acid 2021- No 1{table QD Folic Acid 1 MG 1 MG 02-04 t} 1 MG 00:00 :00 Vital Signs Vital Name Observation Time Observation Value Comments Source height 2022-02-05 16:30:00 72 [in_i] [facility] weight 2022-02-05 16:30:00 194 [lb_av] [facility] temperature 2022-02-05 16:30:00 98 [degF] [facility] bmi 2022-02-05 16:30:00 26.31 kg/m2 Common [facility] blood pressure 2022-02-05 16:30:00 134 mm[Hg] [facility] - systolic [facility] blood pressure 2022-02-05 16:30:00 80 mm[Hg] [facility] - diastolic [facility] height 2021-11-06 16:40:00 72 [in_i] Common [facility] weight 2021-11-06 16:40:00 193 [lb_av] Common S pirit [facility] temperature 2021-11-06 16:40:00 98 [degF] Common S pirit - [facility] bmi 2021-11-06 16:40:00 26.17 kg/m2 Common S pirit [facility] blood pressure 2021-11-06 16:40:00 122 mm[Hg] Common [facility] - systolic [facility] blood pressure 2021-11-06 16:40:00 63 mm[Hg] [facility] - diastolic [facility] height 2021-08-06 09:30:00 72 [in_i] [facility] 2021-08-06 09:30:00 193.4 [lb_av] [facility] temperature 2021-08-06 09:30:00 97.9 [degF] [facility] 2021-08-06 09:30:00 26.23 kg/m2 [facility] S [facility] oximetry 2021-08-06 09:30:00 98 % [facility] respiratory rate 2021-08-06 09:30:00 17 /min Comm on [facility] - [facility] blood pressure 2021-08-06 09:30:00 137 mm[Hg] [facility] - systolic [facility] blood pressure 2021-08-06 09:30:00 65 mm[Hg] Common [facility] - diastolic [facility] height 2021-07-24 08:30:00 72 [in_i] Common S pirit [facility] weight 2021-07-24 08:30:00 199.1 [lb_av] [facility] temperature 2021-07-24 08:30:00 97.3 [degF] [facility] bmi 2021-07-24 08:30:00 27 kg/m2 [facility] oximetry 2021-07-24 08:30:00 95 % Common [facility] respiratory rate 2021-07-24 08:30:00 16 /min Comm on Spirit - [facility] blood pressure 2021-07-24 08:30:00 132 mm[Hg] [facility] - systolic [facility] blood pressure 2021-07-24 08:30:00 74 mm[Hg] [facility] - diastolic [facility] Systolic blood 2021-04-06 13:54:00 120 mm[Hg] Univer sity of pressure [facility] Diastolic blood 2021-04-06 13:54:00 67 mm[Hg] Unive rsity of pressure [facility] Heart rate 2021-04-06 13:54:00 91 /min Universi ty of [facility] Body temperature 2021-04-06 13:54:00 36.33 Sabrina Univ ersity of [facility] Respiratory rate 2021-04-06 13:54:00 18 /min Univ ersity of [facility] Oxygen saturation in 2021-04-06 13:54:00 93 /min University Arterial blood by [facility] Pulse oximetry Branch Body height 2021-04-06 13:08:00 185.4 cm Universi ty of [place] [facility] [place] Body weight 2021-04-06 13:08:00 95.255 kg Universi ty of [place] [facility] BMI 2021-04-06 13:08:00 27.71 kg/m2 Universi ty [facility] [place] [facility] Systolic blood 2019-12-08 19:59:00 175 mm[Hg] Univer sity of pressure [facility] Diastolic blood 2019-12-08 19:59:00 75 mm[Hg] Unive rsity of pressure [facility] Body temperature 2019-12-08 19:59:00 36.89 Sabrina Univ ersity of [facility] Heart rate 2019-12-08 19:55:00 68 /min Universi ty of [facility] Respiratory rate 2019-12-08 19:55:00 17 /min Univ ersity of [facility] Body height 2019-12-08 19:55:00 185.4 cm Universi ty of [place] [facility] [place] Body weight 2019-12-08 19:55:00 90.719 kg Universi ty of [place] [facility] BMI 2019-12-08 19:55:00 26.39 kg/m2 [facility]i ty [facility] [place] [facility] Oxygen saturation in 2019-12-08 19:55:00 96 /min University of Arterial blood by [facility] Pulse oximetry Branch Systolic blood 2019-12-08 19:59:00 175 mm[Hg] Univer sity of pressure [place] [facility] Diastolic blood 2019-12-08 19:59:00 75 mm[Hg] Unive rsity of pressure [facility] Body temperature 2019-12-08 19:59:00 36.89 Sabrina Univ ersity of [facility] Heart rate 2019-12-08 19:55:00 68 /min Universi ty of [place] [facility] Respiratory rate 2019-12-08 19:55:00 17 /min Univ ersity of [facility] Body height 2019-12-08 19:55:00 185.4 cm Universi ty of [facility] Body weight 2019-12-08 19:55:00 90.719 kg Universi ty of [place] [facility] BMI 2019-12-08 19:55:00 26.39 kg/m2 Universi ty [facility] Oxygen saturation in 2019-12-08 19:55:00 96 /min University of Arterial blood by [facility] Pulse oximetry Branch Systolic (mm Hg) 2022-03-04 16:03:00 Hood rial Kunal Diastolic (mm Hg) 2022-03-04 16:03:00 Mem orial [place] Heart Rate 2022-03-04 16:03:00 Memorial [place] Respitory Rate 2022-03-04 16:03:00 Memori al [place] Height 2022-03-04 16:03:00 180.34 cm Memorial Kunal Weight 2022-03-04 16:03:00 [facility] [place] BMI Calculated 2022-03-04 16:03:00 Memori al [place] Systolic (mm Hg) 2022-01-02 18:22:00 Hood rial [place] Diastolic (mm Hg) 2022-01-02 18:22:00 Mem orial [place] Heart Rate 2022-01-02 18:22:00 [facility] [place] Respitory Rate 2022-01-02 18:22:00 Memori al Kunal Height 2022-01-02 18:22:00 181.61 cm Memorial [place] Weight 2022-01-02 18:22:00 [facility] [place] BMI Calculated 2022-01-02 18:22:00 Memori al [place] Systolic (mm Hg) 2021-10-31 18:07:00 Hood rial Kunal Diastolic (mm Hg) 2021-10-31 18:07:00 Mem orial Kunal Heart Rate 2021-10-31 18:07:00 Memorial Kunal Respitory Rate 2021-10-31 18:07:00 Memori al Kunal Height 2021-10-31 18:07:00 182.88 cm Memorial Kunal Weight 2021-10-31 18:07:00 [facility] [place] BMI Calculated 2021-10-31 18:07:00 Memori al [place] Systolic (mm Hg) 2021-10-02 16:08:00 Hood rial [place] Diastolic (mm Hg) 2021-10-02 16:08:00 Mem orial Kunal Heart Rate 2021-10-02 16:08:00 Memorial Kunal Respitory Rate 2021-10-02 16:08:00 Memori al [place] Height 2021-10-02 16:08:00 182.88 cm [facility] [place] Weight 2021-10-02 16:08:00 [facility] [place] BMI Calculated 2021-10-02 16:08:00 Memori al Kunal Systolic (mm Hg) 2021-08-13 16:25:00 Hood rial [place] Diastolic (mm Hg) 2021-08-13 16:25:00 Mem orial [place] Heart Rate 2021-08-13 16:25:00 [facility] [place] Respitory Rate 2021-08-13 16:25:00 Memori al [place] Height 2021-08-13 16:25:00 180.34 cm [facility] [place] Weight 2021-08-13 16:25:00 Memorial Kunal BMI Calculated 2021-08-13 16:25:00 Memori al Kunal Systolic (mm Hg) 2021-02-07 14:34:00 Hood rial [place] Diastolic (mm Hg) 2021-02-07 14:34:00 Mem orial Kunal Heart Rate 2021-02-07 14:34:00 Memorial Kunal Respitory Rate 2021-02-07 14:34:00 Memori al Kunal Height 2021-02-07 14:34:00 180.34 cm Memorial Kunal Weight 2021-02-07 14:34:00 [facility] [place] BMI Calculated 2021-02-07 14:34:00 Memori al [place] BMI Calculated 2020-10-10 19:29:00 Memori al [place] Systolic (mm Hg) 2020-10-10 19:29:00 Hood rial [place] Diastolic (mm Hg) 2020-10-10 19:29:00 Mem orial Kunal Heart Rate 2020-10-10 19:29:00 [facility] [place] Respitory Rate 2020-10-10 19:29:00 Memori al [place] Height 2020-10-10 19:29:00 175.26 cm Memorial Kunal Weight 2020-10-10 19:29:00 Memorial Kunal Systolic (mm Hg) 2020-07-10 16:00:00 Hood rial [place] Diastolic (mm Hg) 2020-07-10 16:00:00 Mem orial Kunal Heart Rate 2020-07-10 16:00:00 [facility] [place] Respitory Rate 2020-07-10 16:00:00 Memori al Kunal Height 2020-07-10 16:00:00 185.42 cm Memorial Kunal Weight 2020-07-10 16:00:00 [facility] [place] BMI Calculated 2020-07-10 16:00:00 Memori al [place] Systolic (mm Hg) 2020-05-29 16:07:00 Hood rial [place] Diastolic (mm Hg) 2020-05-29 16:07:00 Mem orial [place] Heart Rate 2020-05-29 16:07:00 Memorial [facility] [facility] Rate 2020-05-29 16:07:00 [facility] [place] Height 2020-05-29 16:07:00 701.04 cm [facility] Weight 2020-05-29 16:07:00 [facility] BMI Calculated 2020-05-29 16:07:00 [facility] [place] Respitory Rate 2020-05-16 16:13:00 [facility] [place] Systolic (mm Hg) 2020-05-16 16:13:00 Hood rial [place] Diastolic (mm Hg) 2020-05-16 16:13:00 Mem orial [place] Heart Rate 2020-05-16 16:13:00 [facility] [place] Height 2020-05-16 16:13:00 182.88 cm [facility] Weight 2020-05-16 16:13:00 [facility] [place] BMI Calculated 2020-05-16 16:13:00 Anna Thompson Procedures Procedure Date / Time Performed Performing Clinician Yola august [id number] CONSENT 2021-04-06 05:01:00 Doctor Unassigned, No Unive [facility] Name Medical Branch Encounters Start End Encounter Admission Attending Care Care Encounter Source Date/Time Date/Time Type Type Clinicians Facility Department ID 2021-11-21 Outpatient [facility] [id number] [place] 19:17:41 [id number] [facility] 2021-11-08 Outpatient Douglas, STLMLC STLMLC [id number] Common 09:54:02 [facility] 2021-11-06 Outpatient Douglas, STLMLC STLMLC [id number] Common 08:58:01 [facility] 2021-08-07 Outpatient Douglas, STLMLC STLMLC [id number] Common 14:39:52 [facility] 2021-08-07 Outpatient Douglas, STLMLC STLMLC [id number] Common 14:34:09 [facility] 2021-08-07 Outpatient Douglas, STLMLC STLMLC [id number] Common 14:33:45 [facility] 2021-08-07 Outpatient Douglas, STLMLC STLMLC [id number] Common 14:32:43 [facility] 2021-08-07 Outpatient Douglas, STLMLC STLMLC [id number] Common 13:32:49 [facility] 2022-06-10 2022-06-10 Ambulatory MHIE MNA [id number] [place] 17:15:00 17:15:00 Pre-Reg Neurology 11 andrew Donis Syed 2022-06-10 2022-06-10 Outpatient [facility]IE [facility] [id number] 11:15:00 11:15:00 Melia Syed 2022-06-10 2022-06-10 Outpatient AMMON Brian [id number] 11:15:00 11:15:00 Jamshid 11 Laci 2022-03-10 2022-03-10 (TEL) STLMLC STLMLC [id number] Co mmon 00:00:00 00:00:00 [facility] 2022-03-04 2022-03-05 Outpatient nullFlavo MNA [id number] Memoria 15:45:00 04:59:59 r Neurology 10 l Donis [place] 2022-03-04 2022-03-04 Outpatient YOCASTA BrianMISCHER MHMISCHER [id number] 10:45:00 23:59:59 Jamshid 10 Laci 2022-03-04 2022-03-04 Outpatient MHIE MHIE [id number] [facility] 10:45:00 10:45:00 10 andrew Kunal 2022-02-05 2022-02-05 OFFICE STLMLC STLMLC [id number] Co mmon 00:00:00 00:00:00 VISIT Spirit [facility] PT - CHI LEVEL 4 [facility] 2022-01-02 2022-01-03 Outpatient nullFlavo MNA [id number] Memoria 18:15:00 04:59:59 r Neurology 08 andrew Dykes [place] 2022-01-02 2022-01-02 Outpatient YOCASTA BrianMISCHER MHMISCHER [id number] 13:15:00 23:59:59 Jamshid 08 Laci 2022-01-02 2022-01-02 Outpatient MHIE MHIE [id number] [facility] 13:15:00 13:15:00 08 andrew [place] 2021-11-06 2021-11-06 OFFICE STLMLC STLMLC [id number] Co mmon 00:00:00 00:00:00 VISIT Spirit [facility] PT - CHI LEVEL 4 [facility] 2021-10-31 2021-11-01 Outpatient nullFlavo MNA [id number] Mem[facility] 18:00:00 04:59:59 r Neurology 09 andrew Tejadaann 2021-10-31 2021-10-31 Outpatient YOCASTA BrianMISCHER MHMISCHER [id number] 13:00:00 23:59:59 Jamshid 09 Laci 2021-10-31 2021-10-31 Outpatient MHIE MHIE [id number] [facility] 13:00:00 13:00:00 09 andrew Syed 2021-10-02 2021-10-03 Outpatient nullFlavo MNA [id number] [facility] 16:00:00 04:59:59 r Neurology 07 andrew Syed 2021-10-02 2021-10-02 Outpatient Roc MISCHER MHMISCHER [id number] 11:00:00 23:59:59 Jamshid 07 Laci 2021-10-02 2021-10-02 Outpatient MHIE MHIE [id number] [facility] 11:00:00 11:00:00 07 andrew Syed 2021-08-13 2021-08-14 Outpatient nullFlavo MNA [id number] [facility] 16:15:00 05:59:59 r Neurology 06 l Donis Syed 2021-08-13 2021-08-13 Outpatient Roc, MISCHER MHMISCHER [id number] 10:15:00 23:59:59 Jamshid 06 Laci 2021-08-13 2021-08-13 Outpatient MHIE MHIE [id number] [facility] 10:15:00 10:15:00 06 andrew Syed 2021-08-06 2021-08-06 (WELLNESS) STLMLC STLMLC [id number] Common 00:00:00 00:00:00 Wellness Spiri t Visit [facility] 2021-08-05 2021-08-05 (TEL) STLMLC STLMLC [id number] Co mmon 00:00:00 00:00:00 [facility] 2021-07-24 2021-07-24 (HOSP F/U) STLMLC STLMLC [id number] Common 00:00:00 00:00:00 Hospital Spiri t Follow Up - [facility] 2021-07-24 2021-07-24 (TEL) STLMLC STLMLC [id number] Co mmon 00:00:00 00:00:00 [facility] 2021-07-19 2021-07-19 (TEL) STLMLC STLMLC [id number] Co mmon 00:00:00 00:00:00 [facility] 2021-04-06 2021-04-06 Nurse Therapy, Adc Covid Infusion [facility] [id number] Univers 07:32:59 08:32:59 Visit Nolan Douglas [id number] ity [facility] [id number] [facility] [id number] [place] [id number] Branch 2021-04-06 2021-04-06 Outpatient Aidan DOUGLAS [facility] [id number] Univers 08:00:00 08:00:00 NOLAN ity of [facility] 2021-04-06 2021-04-06 Orders Doctor MAUREEN [id number] Univers 00:00:00 00:00:00 Only Unassigned, AWILDA [id number] [facility] [id number] Jesus Alberto as [id number] [address] 2021-02-07 2021-02-08 Outpatient nullFlavo MNA [id number] Memoria 14:30:00 04:59:59 r Neurology 05 l Donis Syed 2021-02-07 2021-02-07 Outpatient YOCASTA BrianMISCHER MHMISCHER [id number] 09:30:00 23:59:59 Jamshid [facility] 2021-02-07 2021-02-07 Outpatient MHIE MHIE [id number] [facility] 09:30:00 09:30:00 05 andrew Syed 2020-10-10 2020-10-11 Outpatient nullFlavo MNA [id number] [facility] 19:30:00 04:59:59 r Neurology 04 andrew Syed 2020-10-10 2020-10-10 Outpatient Roc MHMISCHER MHMISCHER [id number] 14:30:00 23:59:59 Jamshid iLor Laci 2020-10-10 2020-10-10 Outpatient MHIE MHIE [id number] [facility] 14:30:00 14:30:00 04 andrew Syed 2020-07-10 2020-07-11 Outpatient nullFlavo MNA [id number] [facility] 16:00:00 05:59:59 r Neurology 03 l Donis Syed 2020-07-10 2020-07-10 Outpatient Roc MHMISCHER MHMISCHER [id number] 10:00:00 23:59:59 Jamshid 03 Laci 2020-07-10 2020-07-10 Outpatient MHIE MHIE [id number] [facility] 10:00:00 10:00:00 03 l [place] 2020-06-13 2020-06-13 Ambulatory nullFlavo MNA [id number] Mem[facility] 19:15:00 19:15:00 Pre-Reg r Neurology 01 l [place] 2020-06-13 2020-06-13 Outpatient MHIE MHIE [id number] Memoria 13:15:00 13:15:00 01 l [place] 2020-06-13 2020-06-13 Outpatient Roc, MHMISCHER MHMISCHER [id number] 13:15:00 13:15:00 Jamshid 01 Laci 2020-05-29 2020-05-30 Outpatient nullFlavo MNA [id number] Mem[facility] 16:00:00 05:59:59 r Neurology 02 l [place] 2020-05-29 2020-05-29 Outpatient YOCASTA BrianMISCHER MHMISCHER [id number] 10:00:00 23:59:59 Jamshid 02 Laci 2020-05-29 2020-05-29 Outpatient MHIE MHIE [id number] [facility] 10:00:00 10:00:00 02 [place] 2020-05-16 2020-05-17 Outpatient nullFlavo MNA [id number] [facility] 16:45:00 05:59:59 r Neurology 00 l Donis Kunal 2020-05-16 2020-05-16 Outpatient YOCASTA BrianMISCHER MHMISCHER [id number] 10:45:00 23:59:59 Jamshid 00 Laci 2020-05-16 2020-05-16 Outpatient MHIE MHIE [id number] Memoria 10:45:00 10:45:00 00 l [place] 2019-12-08 2019-12-08 Urgent Pob1, Acute [facility] [id number] 14:48:10 15:32:34 [facility] [id number] [place] [id number] [facility] [id number] [address]al [address] 2019-12-08 2019-12-08 Urgent Pob1, Acute Care Clinic [facility] 1. [id number] Univers 14:48:10 15:32:34 [facility] [id number] ity [facility] [id number] Jesus Alberto as [place] [phone] [place] [address] 2019-12-08 2019-12-08 Outpatient R [facility] [id number] Univers 15:20:00 15:20:00 ity [facility] Results This patient has no known results.
[2022-06-21] MEDS ORDERED: ACETAMINOPHEN 325 MG TABLET ONE (23:03)
--- NOTE | 2022-06-22 00:54 | ER ---
Nurse's Notes [facility] Name: Nikolai Gray Age: 86 yrs Sex: Male : 1935 Arrival Date: 06/21/2022 Time: 22:14 Bed 6 Private MD: Diagnosis: Fall on same level, unspecified Presentation: 06/21 22:14 Chief complaint: EMS states: Toned out for an unwitnessed fall from [facility]. Pt kd3 reportedly was trying to move a TV and fell onto some carpet. It is unsure if the pt hit another table in the process. pt was assisted to the bed. on arrival pt was refusing to be transported to the hospital. authorities were contacted for an MARISOL. Coronavirus screen: Vaccine status:. Ebola Screen: No symptoms or risks identified at this time. Initial Sepsis Screen: Does the patient meet any 2 criteria? No. Patient's initial sepsis screen is negative. Does the patient have a suspected source of infection? No. Patient's initial sepsis screen is negative. Risk Assessment: Do you want to hurt yourself or someone else? Patient reports no desire to harm self or others. Onset of symptoms was June 21, 2022. 22:14 Method Of Arrival: EMS: [facility] kd3 22:14 Acuity: ISAC 3 kd3 Triage Assessment: 22:17 General: Appears in no apparent distress. Behavior is agitated. Pain: Denies pain. kd3 Historical: - PMHx: 22:17 Alzheimer's disease; Hypertension; kd3 - Immunization history:: Adult Immunizations up to date. - Social history:: Smoking status: unknown. Screenin:21 Abuse screen: Denies threats or abuse. Denies injuries from another. Nutritional as6 screening: No deficits noted. Tuberculosis screening: No symptoms or risk factors identified. Fall Risk Fall in past 12 months (25 points). Secondary diagnosis (15 points) Alzheimer's, Mental Status- Overestimates/Forgets Limitations (15 pts.). Total Luciano Fall Scale indicates High Risk Score (45 or more points). Family Present and informed to notify staff if the need to leave the bedside. Assessment: 23:04 General: Appears in no apparent distress. Behavior is agitated. Pain: Complains of pain as6 in back. Neuro: Level of Consciousness is awake, alert, confused, Oriented to person. Cardiovascular: Capillary refill < 3 seconds Patient's skin is warm and dry. Respiratory: Respiratory effort is even, unlabored. Vital Signs: 22:20 BP 155 / 84; Pulse 64; Resp 16 S; Temp 98.1(O); Pulse Ox 98% on R/A; Weight 72.57 kg; as6 Height 6 ft. 0 in. (182.88 cm) (R); Pain 0/10; 12 01:05 BP 159 / 64; Pulse 82; Resp 16 S; Pulse Ox 96% on R/A; as6 06/21 22:20 Body Mass Index 21.70 (72.57 kg, 182.88 cm) as6 ED Course: 06/21 22:14 Patient arrived in ED. kd3 22:17 Triage completed. kd3 22:17 Elan Kwok PA is PHCP. cp 22:17 Papa Pisano MD is Attending Physician. cp 22:17 Arm band placed on. kd3 22:20 Juan Manuel Bauer, DARIAN is Primary Nurse. as6 22:21 Bed in low position. Call light in reach. Side rails up X 1. Adult w/ patient. as6 23:01 Head C Spine Cap Wo Con In Process Unspecified. EDMS 06/22 00:15 Assisted to bathroom. kd3 01:05 No provider procedures requiring assistance completed. Patient did not have IV access as6 during this emergency room visit. Administered Medications: 06/21 23:03 Drug: Tylenol 650 mg Route: PO; as6 06/22 01:06 Follow up: Response: No adverse reaction as6 Medication: 01:05 VIS not applicable for this client. as6 Outcome: 00:53 Discharge ordered by . cp 01:05 Discharged to [facility]. as6 01:05 Condition: stable 01:05 Discharge instructions given to significant other, Instructed on discharge instructions, follow up and referral plans. Demonstrated understanding of instructions, follow-up care. 01:06 Patient left the ED. as6 Signatures: Dispatcher [employer] EDMS Elan Kwok PA PA cp Slawson, Ashby, RN RN as6 Montserrat Pereira RN RN kd3
--- NOTE | 2022-06-22 00:54 | EDPHYS ---
Physician Documentation [facility] Name: Nikolai Gray Age: 86 yrs Sex: Male : 1935 Arrival Date: 06/21/2022 Time: 22:14 Bed 6 Private MD: ED Physician Papa Pisano HPI: 06/21 22:30 This 86 yrs old Male presents to ER via EMS with complaints of Fall Injury. cp 22:30 Details of fall: The patient fell from an upright position, while walking. cp 22:30 Onset: The symptoms/episode began/occurred today. Associated injuries: The patient cp sustained injury to the low back, tenderness. Patient brought to ED by EMS after reported fall while at shelter today. Fall reportedly unwitnessed. Patient with history of Alzheimer's. 22:30 Unable to obtain HPI due to baseline dementia. cp Historical: - PMHx: 22:17 Alzheimer's disease; Hypertension; kd3 - Immunization history:: Adult Immunizations up to date. - Social history:: Smoking status: unknown. ROS: 22:35 Constitutional: Negative for fever, poor PO intake. cp 22:35 Neck: Negative for pain with movement, pain at rest, stiffness, bony tenderness. cp 22:35 Cardiovascular: Negative for chest pain. 22:35 Respiratory: Negative for cough, wheezing. 22:35 Back: Positive for of the lumbar area, tenderness. 22:35 Neuro: Negative for altered mental status. 22:35 Unable to obtain ROS due to baseline dementia. cp Exam: 22:40 Constitutional: The patient appears in no acute distress, alert, awake, cp non-diaphoretic, non-toxic, well developed, well nourished. 22:40 Head/Face: Normocephalic, atraumatic. cp 22:40 Eyes: Periorbital structures: appear normal, Pupils: equal, round, and reactive to light and accomodation, Extraocular movements: intact throughout, Conjunctiva: normal, no exudate, no injection, Sclera: no appreciated abnormality, Lids and lashes: appear normal, bilaterally. 22:40 ENT: External ear(s): are unremarkable, Nose: is normal, Mouth: Lips: moist, Oral mucosa: pink and intact, moist, Posterior pharynx: Airway: no evidence of obstruction, patent. 22:40 Neck: C-spine: vertebral tenderness, is not appreciated, crepitus, is not appreciated, ROM/movement: is normal, is supple, without pain, no range of motions limitations, no nuchal rigidity. 22:40 Chest/axilla: Inspection: normal, Palpation: crepitus, is not appreciated, tenderness, is not appreciated. 22:40 Cardiovascular: Rate: normal, Rhythm: regular, Edema: ankle edema, that is mild, JVD: is not appreciated. 22:40 Respiratory: the patient does not display signs of respiratory distress, Respirations: normal, no use of accessory muscles, no retractions, labored breathing, is not present, Breath sounds: are clear throughout, no decreased breath sounds, no stridor, no wheezing. 22:40 Abdomen/GI: Inspection: abdomen appears normal, Palpation: abdomen is soft and non-tender, in all quadrants. 22:40 Back: vertebral tenderness, is appreciated at L3 and L4. 22:40 Musculoskeletal/extremity: Extremities: all appear grossly normal, with no appreciated pain with palpation. 22:40 Neuro: Orientation: no acute changes, per family, to person, situation, Mentation: no acute changes, per family, Motor: moves all fours, strength is normal, Gait: shuffling. Vital Signs: 22:20 BP 155 / 84; Pulse 64; Resp 16 S; Temp 98.1(O); Pulse Ox 98% on R/A; Weight 72.57 kg; as6 Height 6 ft. 0 in. (182.88 cm) (R); Pain 0/10; 06/22 01:05 BP 159 / 64; Pulse 82; Resp 16 S; Pulse Ox 96% on R/A; as6 10 22:20 Body Mass Index 21.70 (72.57 kg, 182.88 cm) as6 MDM: 06/21 22:24 Patient medically screened. cp 23:00 Differential diagnosis: closed head injury, contusion, fracture, multiple trauma. cp 06/22 00:52 Data reviewed: vital signs, nurses notes, radiologic studies, CT scan. cp 00:52 Counseling: I had a detailed discussion with the patient and/or guardian regarding: the cp historical points, exam findings, and any diagnostic results supporting the discharge/admit diagnosis, radiology results, to return to the emergency department if symptoms worsen or persist or if there are any questions or concerns that arise at home. Response to treatment: the patient's symptoms have markedly improved after treatment, and as a result, I will discharge patient. 06/21 22:25 Order name: CT Traumagram (Head C Spine CAP wo con) cp 06/21 22:29 Order name: Head C Spine Cap Wo Con EDMS Administered Medications: 06/21 23:03 Drug: Tylenol 650 mg Route: PO; as6 06/22 01:06 Follow up: Response: No adverse reaction as6 Disposition Summary: 06/22/22 00:53 Discharge Ordered Location: Home cp Problem: new cp Symptoms: have improved cp Condition: Stable cp Diagnosis - Fall on same level, unspecified cp Followup: cp - With: Private Physician - When: 2 - 3 days - Reason: Recheck today's complaints Discharge Instructions: - Discharge Summary Sheet cp - Fall Prevention in the Home, Adult cp Forms: - Medication Reconciliation Form cp - Thank You Letter cp - Antibiotic Education cp - Prescription Opioid Use cp Signatures: Dispatcher [employer] EDMS Elan Kwok PA PA cp Juan Manuel Bauer RN RN as6 Montserrat Pereira RN RN kd3 Corrections: (The following items were deleted from the chart) 00:54 00:54 Low back pain cp cp 06/23 00:30 06/21 22:35 All other systems are negative, cp cp
--- NOTE | 2022-06-22 18:48 | RAD REPORT ---
EXAM DESCRIPTION: CT - Head C Spine Cap Wo Reji - 06/22/2022 6:28 am CLINICAL HISTORY: 86 years Male, fall, low back pain TECHNIQUE: Helical CT axial images are obtained of the brain and cervical spine without IV contrast. Helical CT axial images are obtained from the thoracic inlet to the pubic symphysis without IV cont rast. No oral contrast was administered. Multiplanar reconstruction. This exam was performed acco rding to our departmental dose-optimization program, which includes automated exposure control, adjus tment of the mA and/or kV according to patient size and/or use of iterative reconstruction technique. COMPARISON: 07/18/2021 FINDINGS: BRAIN: Severely limited motion degraded exam. BRAIN: No infarcts. No parenchymal hemorrhage, intra-axial mass, mass effect, or midline shift. No a bnormal extra-axial fluid collections. Mild periventricular white matter hypodensities. VENTRICLES: Ventricles are normal in size and configuration for patient's stated age. No hydrocephal us. CALVARIUM: Bone windows show no skull fracture or calvarial lesions. PARANASAL SINUSES AND MASTOIDS: Clear paranasal sinuses. Mastoid air cells are clear. CERVICAL SPINE: VERTEBRA: There is straightening of the cervical spine. No acute fracture or subluxation. Cervical vertebra are normal in height. Craniocervical junction is intact. Severe anterior marginal osteop hytes C5-C7. Mild anterior marginal osteophytes C3 and C4. Moderate degenerative changes atlantodenta l interval. DISCS: Severe disc space narrowing with sclerotic endplate changes C5-C6 and C6-C7 levels. Mild disc space narrowing C3-C4 and C4-C5. LEVELS: From the C2-C3 through the C7-T1 levels, no critical/acute canal or foraminal stenosis. SOFT TISSUES: Paravertebral soft tissues are unremarkable. CHEST: LUNGS: No pulmonary contusion or consolidation. Right lower lobe 3 mm calcified granuloma. Lung pa renchyma is otherwise clear. No pulmonary masses or suspicious nodules. MEDIASTINUM: No abnormally enlarged mediastinal or hilar lymph nodes. PLEURA: No pleural effusion. No pneumothorax. CARDIAC: Borderline cardiomegaly. No pericardial effusion. VASCULAR: Thoracic aorta is normal in caliber without aneurysm. The pulmonary vasculature demonstrat es no significant dilatation. CHEST WALL: No acute rib fracture. Chest wall is intact. No abnormal axillary lymphadenopathy. ABDOMEN/PELVIS: Streak artifact from patient's arms limits evaluation of the abdomen and pelvis. LIVER: Normal in size. Normal attenuation. A few scattered simple hepatic cysts remain unchanged, no further workup is warranted. Streak artifact from patient's arms limits detailed evaluation of the hepatic parenchyma. HEPATOBILIARY: Unremarkable gallbladder. No intra- or extrahepatic ductal dilatation. SPLEEN: Normal size. PANCREAS: Normal size and contour. No focal mass. ADRENAL GLANDS: Normal size. No adrenal masses. KIDNEYS: Bilateral kidneys are normal in size without obstructing calculi or hydronephrosis. No ne phrolithiasis. Right upper pole 2.5 cm simple renal cyst. BOWEL AND MESENTERY: No small or large bowel dilatation. Descending and sigmoid colon diverticulosis . Normal appendix. No abnormal mesenteric lymphadenopathy. No free fluid or pneumoperitoneum. RETROPERITONEUM: ormal caliber abdominal aorta without aneurysm. Moderate ASVD. No abnormal retrop eritoneal lymphadenopathy. PELVIS: Small diverticulum of the urinary bladder along the left posterior lateral aspect. Nicole l-sized prostate gland. ABDOMINAL WALL: The abdominal wall is intact. BONES: No acute fracture. No suspicious osseous lytic or blastic lesions seen. IMPRESSION: 1. No gross evidence for acute intracranial disease. CT brain was severely motion degr aded. 2. No acute fracture or CT evidence of traumatic injury to cervical spine. Moderate cervical spondy losis. 3. No evidence for traumatic injury to chest, abdomen, or pelvis. 4. No acute cardiopulmonary disease, intra-abdominal or pelvic disease. 5. Imaging of the upper abdomen was limited due to extensive streak artifact from patient's arms. 6. No significant interval change. Electronically signed by: Santino Goel MD 06/21/2022 11:59 PM BOOKBINDER APPRENTICE Due to temporary technical issues with the PACS/Fluency reporting system, reports are being signed by the in house radiologists without review as a courtesy to insure prompt reporting. The interpreting radiologist is fully responsible for the content of the report.
== END 2022-06-22 01:06 | disposition home or self-care (01) ==
LOC: ER 22:13
DX: M54.50 Low back pain, unspecified (principal); W18.30XA Fall on same level, unspecified, initial encounter; I10 Essential (primary) hypertension; G30.9 Alzheimer's disease, unspecified; F02.80 Dementia in other diseases classified elsewhere, unspecified severity, without behavioral disturbance, psychotic disturbance, mood disturbance, and anxiety
CPT/HCPCS: 70450; 71250; 72125; 99284